=== PATIENT | male | born 1940 | race Caucasian/White ===

== ENCOUNTER 2016-11-21 10:17 | Inpatient (IN) | payer OTHER, MEDICARE ==
[~2016-11-21] VITALS: Ht 182.9 cm; Wt 84.6 kg
[~2016-11-21 10:17] MED LIST: ASPI81 CHEW; B-12500T3 PO; CHOL1CAP6 PO; FOLI1TAB PO; GABA400 PO; GLUCTAB PO; GLYB1TAB51; LATA.005%O EACH EYE; LOVA1TAB47 PO; MAXZ25 PO; METO25 PO; PLAV75TA PO; PROT40TA PO
[2016-11-21 10:27] VITALS: BP 155/83; PULSE 74; RESP 16; TEMP 97.7; O2SAT 98
--- NOTE | 2016-11-21 10:48 | PD ---
HPI Chief Complaint: Edema Time Seen by Provider: 10:35 Travel History International Travel<30 days: No Contact w/Intl Traveler<30days: No Traveled to known affect area: No History of Present Illness HPI This is a 76-year-old male with a history of diabetes who presents to the emergency department with 4 days of left foot pain, constant, moderate severity associated with redness and yellow discoloration. He is having difficulty moving his great toe on the left side. He denies any fevers or chills. He's never seen a medicare contact specialist before. Dr. Alvarez is his primary care doctor and he also follows with the [facility]. He takes oral medications for his diabetes. PFSH Past Medical History Hx Anticoagulant Therapy: Yes (asa 81mg) Cancer: Yes (PROSTATE) Cardiovascular Problems: Yes High Cholesterol: Yes Congestive Heart Failure: No Diabetes: Yes Diminished Hearing: No Gastrointestinal Disorders: Yes GERD: Yes Genitourinary: Yes Hypertension: Yes Implanted Vascular Access Dvce: Yes Musculoskeletal: Yes Neurologic: Yes (NEUROPATHY) Psychiatric: No Respiratory: Yes (copd) Past Surgical History Abdominal Surgery: Yes (hernia repair, ) Body Medical Devices: FUSED NECK, METAL PLATES IN BACK/NECK Cholecystectomy: Yes Joint Replacement: Yes (rotator cuff repair) Other Surgery: Yes Social History Alcohol Use: Yes (6 pk daily BEER) Tobacco Use: No Substance Use: No Allergies-Medications (Allergen,Severity, Reaction): Coded Allergies: No Known Allergies (Verified , 11/21/16) Reported Meds & Prescriptions Reported Meds & Active Scripts Active Reported Triamterene-Hydrochlorothiazide 37.5-25 Mg Cap 1 Cap PO DAILY Pantoprazole (Pantoprazole Sodium) 40 Mg Tab 40 Mg PO DAILY Metformin (Metformin HCl) 1,000 Mg Tab 1,000 Mg PO BIDPC With meals Lovastatin 40 Mg Tab 40 Mg PO DAILY Xalatan Opth Drops (Latanoprost) 0.005% Drops 1 Drop EACH EYE HS Glyburide 5 Mg Tab 5 Mg PO DAILY Take with meals at the same time each day Gabapentin 600 Mg Tab 600 Mg PO BID Folate (Folic Acid) 1 Mg Tab 1 Mg PO DAILY Plavix (Clopidogrel Bisulfate) 75 Mg Tab 75 Mg PO DAILY Aspirin 81 Mg Tabdr 81 Mg PO DAILY Review of Systems Except as stated in HPI: all other systems reviewed are Neg Physical Exam Narrative GENERAL:Well appearing, no acute distress SKIN: 3 cm yellow area along the plantar aspect of the left foot immediately distal to the great toe associated with surrounding erythema that extends from the great toe down to the foot with some associated swelling in the ankle. HEAD: Atraumatic. Normocephalic. EYES: Pupils equal and round. No injection or drainage. ENT: Moist mucous membranes NECK: Trachea midline. CARDIOVASCULAR: Regular rate and rhythm. No murmur appreciated. Delayed capillary refill in the left foot. RESPIRATORY: Clear to auscultation. Breath sounds equal bilaterally. GASTROINTESTINAL: Abdomen soft, non-tender, nondistended. MUSCULOSKELETAL: No tenderness to flexion at the left great toe but patient is unable to flex or extend independently NEUROLOGICAL: Awake and alert. No obvious cranial nerve deficits. Moving all extremities. PSYCHIATRIC: Appropriate mood and affect; insight and judgment normal. Data Data Last Documented VS Vital Signs Date Time Temp Pulse Resp B/P Pulse Ox O2 Delivery O2 Flow Rate FiO2 11/21/16 10:27 97.7 74 16 155/83 98 Orders Complete Blood Count With Diff (11/21/16 10:44) Comprehensive Metabolic Panel (11/21/16 10:44) Westergren Sedimentation Rate (11/21/16 10:44) C-Reactive Protein (Crp) (11/21/16 10:44) ^ Insert Iv (11/21/16 10:44) Foot, Complete ([id number]) (11/21/16 ) Piperacil-Tazo 3.375 Gm Premix (Zosyn 3. (11/21/16 12:15) Admit Order (Ed Use Only) (11/21/16 13:01) Labs Laboratory Tests Test 11/21/16 11:00 White Blood Count 9.5 TH/MM3 Red Blood Count 4.33 MIL/MM3 Hemoglobin 14.3 GM/DL Hematocrit 42.2 % Mean Corpuscular Volume 97.4 FL Mean Corpuscular Hemoglobin 33.0 PG Mean Corpuscular Hemoglobin 33.8 % Concent Red Cell Distribution Width 11.4 % Platelet Count 235 TH/MM3 Mean Platelet Volume 7.2 FL Neutrophils (%) (Auto) 79.8 % Lymphocytes (%) (Auto) 9.5 % Monocytes (%) (Auto) 9.4 % Eosinophils (%) (Auto) 0.9 % Basophils (%) (Auto) 0.4 % Neutrophils # (Auto) 7.6 TH/MM3 Lymphocytes # (Auto) 0.9 TH/MM3 Monocytes # (Auto) 0.9 TH/MM3 Eosinophils # (Auto) 0.1 TH/MM3 Basophils # (Auto) 0.0 TH/MM3 CBC Comment DIFF FINAL Differential Comment Erythrocyte Sedimentation Rate 45 mm/hr Sodium Level 137 MEQ/L Potassium Level 4.0 MEQ/L Chloride Level 102 MEQ/L Carbon Dioxide Level 22.3 MEQ/L Anion Gap 13 MEQ/L Blood Urea Nitrogen 13 MG/DL Creatinine 1.35 MG/DL Estimat Glomerular Filtration 51 ML/MIN Rate Random Glucose 156 MG/DL Calcium Level 8.9 MG/DL Total Bilirubin 0.9 MG/DL Aspartate Amino Transf 18 U/L (AST/SGOT) Alanine Aminotransferase 23 U/L (ALT/SGPT) Alkaline Phosphatase 86 U/L C-Reactive Protein 3.74 MG/DL Total Protein 7.6 GM/DL Albumin 3.1 GM/DL MDM Medical Decision Making Medical Screen Exam Complete: Yes Emergency Medical Condition: Yes Interpretation(s) No leukocytosis Electrolytes are reassuring Inflammatory markers are elevated Differential Diagnosis Cellulitis, septic arthritis, gout Narrative Course This is a 76-year-old male who presents to the emergency department with inflammation involving his left great toe extending up his left leg. He has a history of diabetes. I did take an 18-gauge needle and tried to aspirate some fluid from the foot and an area of fluctuance but I didn't obtain anything. It' s possible that this is gout however the patient's inflammatory markers are elevated. In the setting of history of diabetes I think it's reasonable to place the patient on antibiotics and have him see podiatry for concern for a deeper infection, possibly involving the interphalangeal joint. Procedures Procedure Narrative Left foot was cleansed with Betadine, an 18-gauge needle was inserted in an area of fluctuance along the medial plantar aspect of the left foot but clear bloody fluid was aspirated and no pus was appreciated. Patient tolerated the procedure well. Physician Communication Physician Communication Discussed with Dr. Alvarez Diagnosis Primary Impression: Diabetic foot infection Admitting Information Admitting Physician Requests: Observation Lia Barreto MD Nov 21, 2016 10:48
[2016-11-21] MEDS ORDERED: ASPI1TAB69 PO (10:53)
[2016-11-21] MEDS ORDERED: LOVA40TA PO (10:54)
[2016-11-21] MEDS ORDERED: TRIA37.53 PO (10:54)
[2016-11-21] MEDS ORDERED: GABA600T PO (10:54)
[2016-11-21] MEDS ORDERED: PANT40TA3 PO (10:54)
[2016-11-21] MEDS ORDERED: GLYB5TAB3 PO (10:54)
[2016-11-21] MEDS ORDERED: FOLI1TAB4 PO (10:54)
[2016-11-21] MEDS ORDERED: PLAV75TA29 PO (10:54)
[2016-11-21] MEDS ORDERED: LATA.005%O EACH EYE (10:54)
[2016-11-21] MEDS ORDERED: METF1000 PO (10:54)
[2016-11-21 11:07] LABS: AUTOMATED NEUTROPHIL # 7.6 TH/MM3 (1.8-7.7); BASOPHIL % 0.4 % (0.0-2.0); EOSINOPHIL # 0.1 TH/MM3 (0-0.4); EOSINOPHIL % 0.9 % (0.0-4.0); HEMATOCRIT 42.2 % (39.0-51.0); HEMO FLAGS DIFF FINAL; LYMPH % 9.5 % (9.0-44.0); LYMPHOCYTE # 0.9 TH/MM3 (1.0-4.8); MEAN CELL VOLUME 97.4 FL (80.0-100.0); MEAN CORPUSCULAR HGB CONC 33.8 % (32.0-36.0); MONO % 9.4 % (0.0-8.0); NEUT % 79.8 % (16.0-70.0); PLATELET COUNT 235 TH/MM3 (150-450); RED BLOOD COUNT 4.33 MIL/MM3 (4.50-5.90); RED CELL DISTRIBUTION WIDTH 11.4 % (11.6-17.2); WHITE BLOOD COUNT 9.5 TH/MM3 (4.0-11.0)
[2016-11-21 11:16] LABS: CHLORIDE 102 MEQ/L (98-107); SODIUM (NA) 137 MEQ/L (136-145)
[2016-11-21] MEDS ORDERED: PIPERACIL-TAZO 3.375 GM PREMIX 50 ML IV ONE (12:15)
[2016-11-21 12:29] LABS: BLOOD UREA NITROGEN 13 MG/DL (7-18)
[2016-11-21 12:49] LABS: ALKALINE PHOSPHATASE 86 U/L (45-117); TOTAL BILIRUBIN ADULT 0.9 MG/DL (0.2-1.0)
[2016-11-21 12:50] LABS: GLOMERULAR FILTRATION RATE 51 ML/MIN (>89)
[2016-11-21 12:51] LABS: ALT (GPT) 23 U/L (12-78); ANION GAP 13 MEQ/L (5-15); AST (GOT) 18 U/L (15-37); BICARBONATE 22.3 MEQ/L (21.0-32.0)
--- NOTE | 2016-11-21 13:01 | RADHPO ---
EXAM DATE/TIME: 11/21/2016 12:30 [place] COMPARISON: No previous studies available for comparison. INDICATIONS : Patient complains of swelling of left foot, first digit. MEDICAL HISTORY : Diabetes mellitus type II. SURGICAL HISTORY : None. ENCOUNTER: Initial ACUITY: 1 week PAIN SCORE: 0/10 LOCATION: Left foot, first digit FINDINGS: There is marked soft tissue swelling about the first tarsal metatarsal joint. I see no fracture or s ignificant erosion. CONCLUSION: Marked soft tissue swelling. I do not see evidence for osteomyelitis or gouty erosions. Nelson Groves MD FACR on November 21, 2016 at 12:58 Board Certified Radiologist. This report was verified electronically.
[2016-11-21] MEDS ORDERED: NALOXONE HCL 0.4 MG/ML AMP IV PRN ×2 (13:30)
[2016-11-21] MEDS ORDERED: ACETAMINOPHEN 325 MG TAB PO PRN (13:30)
[2016-11-21] MEDS ORDERED: DEXTROSE 50% IN WATER 50 ML VIAL(D50) IV PUSH PRN (13:30)
[2016-11-21] MEDS ORDERED: GLUCAGON 1 MG/ML VIAL OTHER PRN (13:30)
[2016-11-21] MEDS ORDERED: ONDANSETRON HCL 4 MG/2 ML VIAL IVP PRN (13:30)
[2016-11-21] MEDS ORDERED: ALUMINUM/MAGNESIUM/SIMETH 30 ML CUP PO PRN (13:30)
[2016-11-21 14:06] VITALS: BP 138/78; PULSE 76; RESP 18; O2SAT 98
--- NOTE | 2016-11-21 14:15 | HHI.HP ---
[facility] Service [place] [place] [facility] Primary Care Physician Jefferson Alvarez MD Admission Diagnosis diabetic foot infection Diagnoses: (1) Cellulitis of foot, left Diagnosis: Principal (2) Renal failure Diagnosis: Principal (3) Type 2 diabetes mellitus Diagnosis: Principal Chief Complaint: redness, swelling L foot Travel History International Travel<30 Days: No Contact w/Intl Traveler <30 Da: No Traveled to Known Affected Are: No History of Present Illness 76-year-old male with history of NIDDM, hyperlipidemia, hypertension, GERD, neuropathy, and prostate cancer presents with complaint of redness and swelling to his left foot, starting over the top of foot, which began 1.5-2 weeks ago but became worse over the last few days. He denies any pain to the foot. Denies any injuries to his foot or ankle recently. Denies any fevers or chills. Denies any chest pain, shortness of breath, abdominal pain, nausea, vomiting or diarrhea. He denies any history of gout but does drink a sixpack of beer daily. He also admits to some non-pruritic red spots on his left thigh which appeared since getting here, but denies any throat swelling or wheezing. Denies allergy to penicillin. States he saw a special duty nurse Dr. Hdez one year ago. Review of Systems Constitutional: DENIES: Fever, Chills Eyes: DENIES: Blurred vision Ears, nose, mouth, throat: DENIES: Throat pain Respiratory: DENIES: Cough, Wheezing, Shortness of breath Cardiovascular: DENIES: Chest pain Gastrointestinal: DENIES: Abdominal pain, Diarrhea, Nausea, Vomiting Genitourinary: DENIES: Dysuria Musculoskeletal: COMPLAINS OF: Joint Swelling, DENIES: Joint pain Integumentary: COMPLAINS OF: Rash Neurologic: DENIES: Headache Past Family Social History Past Medical History History of prostate cancer; not active Hyperlipidemia Hypertension Diabetes Neuropathy COPD GERD Hospitalized for pancreatitis in 2013 Past Surgical History Cardiac cath 2007 Cholecystectomy Abdominal hernia repair Neck fusion, hardware at C5-C7 Left rotator cuff repair Reported Medications Reported medications: Triamterene-Hydrochlorothiazide 37.5-25 Mg Cap 1 Cap PO DAILY Pantoprazole (Pantoprazole Sodium) 40 Mg Tab 40 Mg PO DAILY Metformin (Metformin HCl) 1,000 Mg Tab 1,000 Mg PO BIDPC With meals Lovastatin 40 Mg Tab 40 Mg PO DAILY Xalatan Opth Drops (Latanoprost) 0.005% Drops 1 Drop EACH EYE HS Glyburide 5 Mg Tab 5 Mg PO DAILY Take with meals at the same time each day Gabapentin 600 Mg Tab 600 Mg PO BID Folate (Folic Acid) 1 Mg Tab 1 Mg PO DAILY Plavix (Clopidogrel Bisulfate) 75 Mg Tab 75 Mg PO DAILY Aspirin 81 Mg Tab 81 Mg PO DAILY Allergies: Coded Allergies: No Known Allergies (Verified , 11/21/16) Family History Mother: Healthy Father: Killed when patient was 7 years old Brother: Rheumatic fever, living Sister: Healthy, living Social History Patient drinks a 6 pack of beer daily. States he has been drinking this much since he was a kid. Patient quit smoking cigarettes in 1991. Prior to this he smoked 1 pack per day. Started smoking as a teenager. Denies any history of illicit drug use including IVDA. Physical Exam Vital Signs Vital Signs Date Time Temp Pulse Resp B/P Pulse Ox O2 Delivery O2 Flow Rate FiO2 11/21/16 14:06 76 18 138/78 98 Room Air 11/21/16 10:27 97.7 74 16 155/83 98 Physical Exam GENERAL: This is a pleasant elderly well-nourished, well-developed patient in no apparent distress. SKIN: There are a few very small light red macules to the medial left thigh. There is no rash evident elsewhere. There is some discoloration and nail loss and erythema around the nail of the right second toe. There is a small wound to the plantar aspect of the right fifth metatarsal. Left great toenail is thick and discolored yellow and black and deformed. Left ankle and foot is warm and erythematous extending to all left toes. There is white discoloration over the medial plantar aspect of left foot in the area of the distal 1st metatarsal. Surgical scar over the left shoulder and posterior neck. HEAD: Atraumatic. Normocephalic. EYES: No scleral icterus. No injection or drainage. ENT: MMM. CARDIOVASCULAR: Regular rate and rhythm without murmurs, gallops, or rubs. RESPIRATORY: Clear to auscultation. Breath sounds equal bilaterally. No wheezes , rales, or rhonchi. GASTROINTESTINAL: Abdomen soft, non-tender, nondistended. MUSCULOSKELETAL: Intermittently palpable R TP pulse. 1+ L DP pulse. 2+ L TP pulse. Swelling of the left ankle, foot, and toes. Patient is able to actively flex and extend the left ankle as well as flex the left great toe without pain. There is limitation due to swelling. Passive motion is also adequate at the left first metatarsophalangeal joint although limited due to swelling. NEUROLOGICAL: Awake and alert. Motor grossly within normal limits. Normal speech. PSYCHIATRIC: Normal mood and affect. Laboratory Laboratory Tests Test 11/21/16 11:00 White Blood Count 9.5 Red Blood Count 4.33 Hemoglobin 14.3 Hematocrit 42.2 Mean Corpuscular Volume 97.4 Mean Corpuscular Hemoglobin 33.0 Mean Corpuscular Hemoglobin 33.8 Concent Red Cell Distribution Width 11.4 Platelet Count 235 Mean Platelet Volume 7.2 Neutrophils (%) (Auto) 79.8 Lymphocytes (%) (Auto) 9.5 Monocytes (%) (Auto) 9.4 Eosinophils (%) (Auto) 0.9 Basophils (%) (Auto) 0.4 Neutrophils # (Auto) 7.6 Lymphocytes # (Auto) 0.9 Monocytes # (Auto) 0.9 Eosinophils # (Auto) 0.1 Basophils # (Auto) 0.0 CBC Comment DIFF FINAL Differential Comment Erythrocyte Sedimentation Rate 45 Sodium Level 137 Potassium Level 4.0 Chloride Level 102 Carbon Dioxide Level 22.3 Anion Gap 13 Blood Urea Nitrogen 13 Creatinine 1.35 Estimat Glomerular Filtration 51 Rate Random Glucose 156 Calcium Level 8.9 Total Bilirubin 0.9 Aspartate Amino Transf 18 (AST/SGOT) Alanine Aminotransferase 23 (ALT/SGPT) Alkaline Phosphatase 86 C-Reactive Protein 3.74 Total Protein 7.6 Albumin 3.1 Result Diagram: 11/21/16 1100 11/21/16 1100 Imaging Left foot x-ray personally interpreted with swelling but no evidence of fracture or bony erosion. Assessment and Plan Assessment and Plan 76-year-old male with: Cellulitis left foot: Patient is a diabetic. Significant erythema and swelling to left foot and ankle. No pain present although patient has neuropathy. Joint motion is limited due to swelling but is adequate considering, making me less suspicious for septic joints. X-ray shows no evidence of osteomyelitis. Gout is also a possibility as patient has several risk factors for this. -She received 1 dose of Zosyn in the ED. He admits to some red spots to the medial left thigh since being in ED but I am not convinced this is due to the antibiotic as it is quite minimal. Will continue Zosyn and monitor for allergic reaction. -Elevate L leg and foot -Podiatry consultation to evaluate for any deeper infection Diabetes: BGL 156. -Hold oral meds due to possible MIRTA -Bedside Accu-checks and low dose SSI -Diabetic heart healthy diet Renal failure: Cr mildly elevated at 1.35 today, could be associated with infection. No evidence of sepsis. GFR 51. Likely has CKD. Last lab for comparison is on 04/28/15, Cr 1.10 with GFR 65. -Avoid nephrotoxins -Repeat am BMP Chronic medical conditions including neuropathy, hyperlipidemia, hypertension, GERD: -Continue home medications unless otherwise indicated on med rec. Daily alcohol use: 6 pack per day. Patient denies needing an eye fell cutter. Denies history of withdrawal symptoms. MCV and LFTs normal. -Nurse to perform CIWA assessment -Withdrawal precautions -Patient on folic acid at home; start po thiamine DVT prevention: Avoid SCDs due to lower extremity issues. Avoid pharmacologic prophylaxis as patient at increased risk of bleeding due to age and concomitant Plavix use. Cyndy Louie Nov 21, 2016 14:15 Cyndy Louie Nov 21, 2016 14:15
[2016-11-21 16:00] VITALS: BP 158/94; PULSE 65; RESP 18; TEMP 97.9; O2SAT 99
[2016-11-21] MEDS: INSULIN ASPART SUPPLEMENTAL SCALE SQ SCH ×2 (16:00→20:44)
[2016-11-21] MEDS: ACETAMINOPHEN/HYDROcodone 325 MG/10 MG TAB PO PRN (16:53)
[2016-11-21] MEDS: PIPERACIL-TAZO 3.375 GM PREMIX 50 ML IV SCH (17:59)
[2016-11-21 20:00] VITALS: BP 145/94; PULSE 58; RESP 16; TEMP 97.7; O2SAT 100
[2016-11-21] MEDS: SODIUM CHLORIDE 0.9% FLUSH 5 ML FLUSH FLUSH SCH (20:41)
[2016-11-21] MEDS: GABAPENTIN 300 MG CAP PO SCH (20:41)
[2016-11-21] MEDS: LATANOPROST 0.005% OPHT SOLN 2.5 ML BTL EACH EYE SCH (20:57)
[2016-11-22] VITALS: BP 140/77; PULSE 52; RESP 18; TEMP 96.4; O2SAT 100
[2016-11-22] MEDS: PIPERACIL-TAZO 3.375 GM PREMIX 50 ML IV SCH ×4 (00:07→18:00)
[2016-11-22] MEDS: ACETAMINOPHEN/HYDROcodone 325 MG/10 MG TAB PO PRN (04:10)
[2016-11-22 06:02] LABS: AUTOMATED NEUTROPHIL # 7.1 TH/MM3 (1.8-7.7); BASOPHIL % 0.3 % (0.0-2.0); EOSINOPHIL # 0.2 TH/MM3 (0-0.4); EOSINOPHIL % 2.1 % (0.0-4.0); HEMATOCRIT 37.7 % (39.0-51.0); HEMO FLAGS DIFF FINAL; LYMPH % 9.8 % (9.0-44.0); LYMPHOCYTE # 0.9 TH/MM3 (1.0-4.8); MEAN CELL VOLUME 98.1 FL (80.0-100.0); MEAN CORPUSCULAR HEMOGLOBIN 33.5 PG (27.0-34.0); MEAN CORPUSCULAR HGB CONC 34.2 % (32.0-36.0); MONO % 13.5 % (0.0-8.0); NEUT % 74.3 % (16.0-70.0); PLATELET COUNT 192 TH/MM3 (150-450); RED BLOOD COUNT 3.84 MIL/MM3 (4.50-5.90); RED CELL DISTRIBUTION WIDTH 11.5 % (11.6-17.2); WHITE BLOOD COUNT 9.5 TH/MM3 (4.0-11.0)
[2016-11-22 06:04] LABS: POTASSIUM 4.2 MEQ/L (3.5-5.1)
[2016-11-22 06:10] LABS: BICARBONATE 27.7 MEQ/L (21.0-32.0)
[2016-11-22] MEDS: INSULIN ASPART SUPPLEMENTAL SCALE SQ SCH ×4 (07:00→21:25)
[2016-11-22 08:00] VITALS: BP 121/75; PULSE 63; RESP 17; TEMP 98.2; O2SAT 100
[2016-11-22] MEDS: ASPIRIN EC 81 MG TABEC PO SCH (08:34)
[2016-11-22] MEDS: GABAPENTIN 300 MG CAP PO SCH ×2 (08:34→21:25)
[2016-11-22] MEDS: THIAMINE HCL 100 MG TAB PO SCH (08:34)
[2016-11-22] MEDS: SODIUM CHLORIDE 0.9% FLUSH 5 ML FLUSH FLUSH SCH ×2 (08:34→21:25)
[2016-11-22] MEDS: CLOPIDOGREL 75 MG TAB PO SCH (08:34)
[2016-11-22] MEDS: FOLIC ACID 1 MG TAB PO SCH (08:34)
[2016-11-22] MEDS: PANTOPRAZOLE SOD 40 MG DELAYED RELEASE TAB PO SCH (08:34)
[2016-11-22] MEDS ORDERED: PRAVASTATIN SOD 40 MG TAB PO SCH (09:00)
--- NOTE | 2016-11-22 10:22 | HHI.PR ---
Subjective Remarks Patient seen and evaluated today in follow-up for left foot infection. Overall improved erythema and edema per patient. He has minimal pain due to neuropathy. Awaiting podiatry evaluation Objective Vitals Vital Signs Date Time Temp Pulse Resp B/P Pulse Ox O2 Delivery O2 Flow Rate FiO2 11/22/16 08:00 98.2 63 17 121/75 100 11/22/16 00:00 96.4 52 18 140/77 100 11/21/16 20:00 97.7 58 16 145/94 100 11/21/16 17:53 20 11/21/16 16:00 97.9 65 18 158/94 99 11/21/16 14:06 76 18 138/78 98 Room Air 11/21/16 10:27 97.7 74 16 155/83 98 I/O 11/21/16 11/21/16 11/21/16 11/22/16 11/22/16 11/22/16 07:00 15:00 23:00 07:00 15:00 23:00 Intake Total 680 ml 240 ml 310 ml Balance 680 ml 240 ml 310 ml Intake Oral 680 ml 240 ml 310 ml # Voids 2 1 # Bowel Movements 0 0 Result Diagram: 11/22/16 0525 11/22/16 0525 Imaging Last Impressions Foot X-Ray 11/21/16 0000 Signed Impressions: Service Date/Time: Monday, November 21, 2016 12:30 - CONCLUSION: Marked soft tissue swelling. I do not see evidence for osteomyelitis or gouty erosions. Nelson Groves MD FACR Objective Remarks GENERAL: This is a well-nourished, well-developed patient, in no apparent distress. CARDIOVASCULAR: Regular rate and rhythm without murmurs, gallops, or rubs. RESPIRATORY: Clear to auscultation. Breath sounds equal bilaterally. No wheezes , rales, or rhonchi. GASTROINTESTINAL: Abdomen soft, non-tender, nondistended. Normal active bowel sounds MUSCULOSKELETAL: Left foot erythema and edema improved. Other 3 Extremities without clubbing, cyanosis, or edema. NEURO: Alert & Oriented x4 to person, place, time, situation. Moves all ext x4 A/P Problem List: (1) Cellulitis of foot, left ICD Code: L03.116 Status: Acute Plan: Continue Zosyn, podiatry follow-up pending (2) Type 2 diabetes mellitus ICD Code: E11.9 Status: Acute Plan: Currently controlled on home medications Patient does have diabetic neuropathy (3) MIRTA (acute kidney injury) ICD Code: N17.9 Status: Acute Plan: Appears to have been prerenal, improved with hydration. We'll follow trend and avoid nephrotoxic injuries Adina Alvarez MD Nov 22, 2016 10:22
[2016-11-22 12:00] VITALS: BP 125/80; PULSE 70; RESP 17; TEMP 98; O2SAT 99
[2016-11-22 16:00] VITALS: BP 150/85; PULSE 71; RESP 17; TEMP 98; O2SAT 98
[2016-11-22 20:00] VITALS: BP 139/74; PULSE 64; RESP 20; TEMP 98.8; O2SAT 99
[2016-11-22] MEDS ORDERED: MUPIROCIN 2% OINT 22 GM TUBE TOPICAL ONE (20:30)
--- NOTE | 2016-11-22 20:51 | MB ---
cc: KAELYN HANDY DATE OF CONSULTATION 11/22/2016 CHIEF COMPLAINT Left foot erythema and swelling. HISTORY OF PRESENT ILLNESS Mr. Reeder is a 76-year-old neuropathic diabetic male patient who states that he has had swelling the left foot for about 2 weeks now. He states that over the last year or two he has had this a few times but this is the worst. He denies any pain to the foot and does not routinely see a doctor. He came to the ER because he was concerned about the amount of swelling but otherwise denies any symptoms. PAST MEDICAL HISTORY Includes: 1. Non-insulin dependent diabetes mellitus. 2. Hyperlipidemia. 3. Hypertension. 4. Gastroesophageal reflux disease. 5. Neuropathy. 6. Prostate cancer. PAST SURGICAL HISTORY 1. Cardiac cath. 2. Cholecystectomy. 3. Abdominal hernia repair. 4. Neck fusion C5-C7. 5. Left rotator cuff repair. MEDICATIONS Please see list. ALLERGIES NO KNOWN DRUG ALLERGIES. FAMILY HISTORY Noncontributory. SOCIAL HISTORY The patient states he drinks a six-pack of beer daily and has done this since he was a young teen. Quit smoking cigarettes in 1991 but did smoke one-pack per day. Denies any history of illicit drug use. Temperature is 98.0 which is also T-max. Pulse 71, blood pressure 150/85, pulse ox 98% O2 on room air. LABORATORY DATA White count today 9.5, hemoglobin 12.9, hematocrit 37.7, platelets 192. Sodium 141, potassium 4.2, chloride 104, carbon dioxide 27.7, BUN 14. No cultures taken. Blood cultures are pending. IMAGING X-rays are negative for any signs of erosion at the bone or gas in the soft tissue. PHYSICAL EXAMINATION The patient has nonpalpable DP or PT pulses but the foot does feel perfused. Cap fill time less than 3 seconds. Gross sensation severely diminished. Right foot is unremarkable. Left foot is swollen to the level of the ankle with the erythema extending just beyond the mid foot both dorsally and plantarly. Sub met 1 there was a fluctuant area of skin. After incision and drainage there is a 0.5 x 0.5 x 0.5 granular ulceration. There was some serous drainage and a very small amount of purulent noted at the time I&D. There does not appear to be any deep probing element to the wound, however, tissue remained soft and fluctuant. PROCEDURE The patient neuropathic and anesthesia was not needed. The foot was cleaned with alcohol and Betadine. Attention was directed to the plantar aspect of the left first metatarsal where a heavy callus was noted to be covering fluctuant tissue. Callus was debrided and there was a small amount of purulence drained and then some serous fluid was drained. The callus was removed en toto to reveal partial thickness wound of approximately 2 cm x 2 cm and a full-thickness wound that was 0.5 cm x 0.5 cm x 0.5 cm with a granular wound bed. The area was cleansed with copious amounts of sterile saline and dressed with xeroform, gauze, Dejan and a light Gerald wrap. The foot was left in elevated position and MRI will be ordered. ASSESSMENT/PLAN 1. Left foot superficial abscess with cellulitis. - Status post bedside I&D. - Blood cultures pending. - MRI pending. - The patient would benefit from a vascular evaluation. However if he does not require surgical intervention then this chronic condition can be assessed as an outpatient. - Continue IV antibiotics. - Weight bear as tolerated in a surgical shoe. Thank you for this consultation. Kaelyn GOMEZ/KK /8:03 PM /8:32 PM MTDD
[2016-11-22] MEDS: ACETAMINOPHEN/HYDROcodone 325 MG/5 MG TAB PO PRN (21:24)
[2016-11-22] MEDS: PRAVASTATIN SOD 40 MG TAB PO SCH (21:25)
[2016-11-22] MEDS: LATANOPROST 0.005% OPHT SOLN 2.5 ML BTL EACH EYE SCH (21:27)
[2016-11-23] VITALS: BP 99/57; PULSE 68; RESP 20; TEMP 97.8; O2SAT 98
[2016-11-23] MEDS: PIPERACIL-TAZO 3.375 GM PREMIX 50 ML IV SCH ×5 (00:14→23:59)
[2016-11-23] MEDS: SODIUM CHLORIDE 0.9% FLUSH 5 ML FLUSH FLUSH PRN ×3 (00:14→23:59)
[2016-11-23 04:00] VITALS: BP 142/80; PULSE 56; RESP 20; TEMP 98.1; O2SAT 100
[2016-11-23] MEDS: ACETAMINOPHEN/HYDROcodone 325 MG/5 MG TAB PO PRN (05:03)
[2016-11-23] MEDS: INSULIN ASPART SUPPLEMENTAL SCALE SQ SCH ×4 (06:00→22:38)
[2016-11-23 08:00] VITALS: BP 128/79; PULSE 60; RESP 20; TEMP 97.2; O2SAT 100
[2016-11-23] MEDS: PANTOPRAZOLE SOD 40 MG DELAYED RELEASE TAB PO SCH (10:02)
[2016-11-23] MEDS: THIAMINE HCL 100 MG TAB PO SCH (10:02)
[2016-11-23] MEDS: FOLIC ACID 1 MG TAB PO SCH (10:02)
[2016-11-23] MEDS: GABAPENTIN 300 MG CAP PO SCH ×2 (10:03→22:39)
[2016-11-23] MEDS: ASPIRIN EC 81 MG TABEC PO SCH (10:03)
[2016-11-23] MEDS: CLOPIDOGREL 75 MG TAB PO SCH (10:03)
[2016-11-23] MEDS: SODIUM CHLORIDE 0.9% FLUSH 5 ML FLUSH FLUSH SCH ×2 (10:04→22:38)
[2016-11-23] MEDS: MUPIROCIN 2% OINT 22 GM TUBE TOPICAL SCH (10:08)
[2016-11-23 12:00] VITALS: BP 131/68; PULSE 60; RESP 20; TEMP 98; O2SAT 99
--- NOTE | 2016-11-23 12:38 | HHI.DCPOC ---
Discharge Care Plan Diagnosis: (1) MIRTA (acute kidney injury) (2) Cellulitis of foot, left (3) Type 2 diabetes mellitus Additional Problems TAKE METFORMIN IN 48 HOURS Goals to Promote Your Health * To prevent worsening of your condition and complications * To maintain your health at the optimal level Directions to Meet Your Goals Take your medications as prescribed Follow your dietary instruction Follow activity as directed Keep your appointments as scheduled Take your immunizations and boosters as scheduled If your symptoms worsen call your PCP, if no PCP go to Urgent Care Center or Emergency Room Smoking is Dangerous to Your Health. Avoid second hand smoke Call the 24-hour hour crisis hotline for domestic abuse at Adina Alvarez MD Nov 23, 2016 12:38
--- NOTE | 2016-11-23 12:43 | HHI.DS ---
vasu posadas Discharge Summary Admission Date Nov 21, 2016 at 13:02 Discharge Date: Nov 23, 2016 Admitting Diagnosis diabetic foot infection (1) Cellulitis of foot, left ICD Code: L03.116 (2) Type 2 diabetes mellitus ICD Code: E11.9 (3) MIRTA (acute kidney injury) ICD Code: N17.9 Procedures Bedside I&D Brief History - From Admission 76-year-old male with history of NIDDM, hyperlipidemia, hypertension, GERD, neuropathy, and prostate cancer presents with complaint of redness and swelling to his left foot, starting over the top of foot, which began 1.5-2 weeks ago but became worse over the last few days. He denies any pain to the foot. Denies any injuries to his foot or ankle recently. Denies any fevers or chills. Denies any chest pain, shortness of breath, abdominal pain, nausea, vomiting or diarrhea. He denies any history of gout but does drink a sixpack of beer daily. He also admits to some non-pruritic red spots on his left thigh which appeared since getting here, but denies any throat swelling or wheezing. Denies allergy to penicillin. States he saw a associate professor of violin Dr. Hdez one year ago. CBC/BMP: 11/22/16 0525 11/22/16 0525 Significant Findings Laboratory Tests Test 11/21/16 11/22/16 11:00 05:25 Red Blood Count 4.33 MIL/MM3 3.84 MIL/MM3 (4.50-5.90) (4.50-5.90) Red Cell Distribution Width 11.4 % 11.5 % (11.6-17.2) (11.6-17.2) Neutrophils (%) (Auto) 79.8 % 74.3 % (16.0-70.0) (16.0-70.0) Monocytes (%) (Auto) 9.4 % (0.0-8.0) 13.5 % (0.0-8.0) Lymphocytes # (Auto) 0.9 TH/MM3 0.9 TH/MM3 (1.0-4.8) (1.0-4.8) Erythrocyte Sedimentation Rate 45 mm/hr (0-20) Creatinine 1.35 MG/DL (0.60-1.30) Estimat Glomerular Filtration 51 ML/MIN (>89) 54 ML/MIN (>89) Rate Random Glucose 156 MG/DL (74-106) C-Reactive Protein 3.74 MG/DL (0.00-0.30) Albumin 3.1 GM/DL (3.4-5.0) Hemoglobin 12.9 GM/DL (13.0-17.0) Hematocrit 37.7 % (39.0-51.0) Monocytes # (Auto) 1.3 TH/MM3 (0-0.9) Calcium Level 8.3 MG/DL (8.5-10.1) Imaging Last Impressions Foot X-Ray 11/21/16 0000 Signed Impressions: Service Date/Time: Monday, November 21, 2016 12:30 - CONCLUSION: Marked soft tissue swelling. I do not see evidence for osteomyelitis or gouty erosions. Nelson Groves MD FACR PE at Discharge GENERAL: This is a well-nourished, well-developed patient, in no apparent distress. CARDIOVASCULAR: Regular rate and rhythm without murmurs, gallops, or rubs. RESPIRATORY: Clear to auscultation. Breath sounds equal bilaterally. No wheezes , rales, or rhonchi. GASTROINTESTINAL: Abdomen soft, non-tender, nondistended. Normal active bowel sounds MUSCULOSKELETAL: Left foot erythema and edema improved. Other 3 Extremities without clubbing, cyanosis, or edema. NEURO: Alert & Oriented x4 to person, place, time, situation. Moves all ext x4 Pt update on day of discharge Patient seen today in follow-up for cellulitis of left foot. Status post I&D by podiatry. Acute kidney injury is improved. Patient still has minimal pain. Tolerated IV antibiotics well and edema and erythema is improved Hospital Course This patient is a 76-year-old gentleman who was seen and treated for acute kidney injury, dehydration and cellulitis of the left foot the history of diabetes. He did require IV antibiotics and was seen by podiatry. He did have an I&D at the bedside and an MRI of the leg. Patient also had arterial brachial indices done. Patient did well and was discharged home to follow-up with his primary doctor's at [facility]. Pt Condition on Discharge: Good Discharge Disposition: Discharge Home Discharge Time: > 30 minutes Discharge Instructions DIET: Follow Instructions for: Diabetic Diet Activities you can perform: Regular-No Restrictions Follow up Referrals: PCP Follow-up - 1 Week with [facility] - 2 Weeks with Kaelyn Saez DPM New Medications: Amoxicillin-Clavulanate (Augmentin) 500-125 mg Tab 500 MG PO BID Infection #14 Ref 0 TAB Clindamycin (Clindamycin) 300 Mg Cap 600 MG PO Q8H Infection #21 Ref 0 CAP Continued Medications: Aspirin (Aspirin) 81 Mg Tabdr 81 MG PO DAILY TAB Clopidogrel (Plavix) 75 Mg Tab 75 MG PO DAILY Blood Clot Prevention #30 Ref 0 TAB Folic Acid (Folate) 1 Mg Tab 1 MG PO DAILY Nutritional Supplement Ref 0 TAB Gabapentin (Gabapentin) 600 Mg Tab 600 MG PO BID #60 Ref 0 TAB Glyburide (Glyburide) 5 Mg Tab 5 MG PO DAILY Take with meals at the same time each day Blood Sugar Management # 30 Ref 0 TAB Latanoprost Opth Drops (Xalatan Opth Drops) 0.005% Drops 1 DROP EACH EYE HS Glaucoma #2.5 Ref 0 ML Lovastatin (Lovastatin) 40 Mg Tab 40 MG PO DAILY Cholesterol Management #30 Ref 0 TAB Metformin (Metformin) 1,000 Mg Tab 1000 MG PO BIDPC With meals Blood Sugar Management #60 Ref 0 TAB Pantoprazole (Pantoprazole) 40 Mg Tab 40 MG PO DAILY Reflux #30 Ref 0 TAB Triamterene-Hydrochlorothiazide (Triamterene-Hydrochlorothiazide) 37.5-25 Mg Cap 1 CAP PO DAILY #30 Ref 0 Adina Monique MD Nov 23, 2016 12:43
[2016-11-23] MEDS ORDERED: GADODIAMIDE PF 287 MG/ML 20 ML VIAL (for RAD MRI) IV ONE (13:13)
--- NOTE | 2016-11-23 15:28 | RADRPT ---
EXAM DATE/TIME: 11/23/2016 00:00 [facility] COMPARISON: No previous studies available for comparison. INDICATIONS : Diabetic foot infection TECHNIQUE: Four-cuff ankle and brachial pressures were obtained. Pulse cuff waveform tracings of the ankles were recorded, and ankle-brachial indices were calculated. PRESSURES (mmHg): Brachial (arm): Right iv site Left 140 Ankle: Right CNO >260 Left 190 SHARLA: Right >1.85 Left 1.35 PULSED CUFF WAVEFORMS: Demonstrate normal amplitude bilaterally. CONCLUSION: Elevated ankle-brachial index on the right which would be assisted with densely calcified vessels.CT angiography of the abdominal aorta and lower extremities is recommended for further evaluation if cli nically indicated. Soren Baez MD on November 23, 2016 at 15:26 Board Certified Radiologist. This report was verified electronically.
--- NOTE | 2016-11-23 15:49 | RADHPO ---
EXAM DATE/TIME: 11/23/2016 12:59 [facility] COMPARISON: No previous studies available for comparison. INDICATIONS : Abscess. Wound on plantar surface of first MIP joint. CONTRAST: 17 cc Omniscan (gadodiamide) IV MEDICAL HISTORY : Carcinoma, prostate. Diabetes mellitus type 2. Hypertension. Renal failure. GERD. COPD. SURGICAL HISTORY : Rotator cuff, left. Prostatectomy. Fusion, cervical. Hernia. Lumbar laminectomy. ENCOUNTER: Subsequent ACUITY: 2 day PAIN SCORE: 0/10 LOCATION: Left foot TECHNIQUE: Multiplanar, multisequence MRI examination was performed without contrast and after the intravenous a dministration of gadolinium. FINDINGS: There is a subcutaneous abscess measuring 2.8 x 1.0 CM at the level of the first metatarsophalangeal joint at the plantar surface. There is no marrow edema to suggest osteomyelitis. The sesamoids and te ndons are intact. The hindfoot is unremarkable. CONCLUSION: 1. 2.8 x 1 cm subcutaneous abscess at the level of the first metatarsophalangeal joint. No evidence o f osteomyelitis Soren Baez MD on November 23, 2016 at 15:35 Board Certified Radiologist. This report was verified electronically.
[2016-11-23 16:00] VITALS: BP 140/76; PULSE 58; RESP 20; TEMP 97.9; O2SAT 95
[2016-11-23] MEDS: ACETAMINOPHEN/HYDROcodone 325 MG/10 MG TAB PO PRN (16:23)
[2016-11-23] MEDS ORDERED: MUPIROCIN 2% OINT 22 GM TUBE TOPICAL ONE (17:30)
[2016-11-23 20:00] VITALS: BP 100/69; PULSE 56; RESP 18; TEMP 97.2; O2SAT 93
[2016-11-23] MEDS: PRAVASTATIN SOD 40 MG TAB PO SCH (22:39)
[2016-11-23] MEDS: LATANOPROST 0.005% OPHT SOLN 2.5 ML BTL EACH EYE SCH (22:41)
[2016-11-24] VITALS: BP 132/79; PULSE 63; RESP 20; TEMP 96.7; O2SAT 99
[2016-11-24] MEDS: ACETAMINOPHEN/HYDROcodone 325 MG/5 MG TAB PO PRN
[2016-11-24] MEDS: SODIUM CHLORIDE 0.9% FLUSH 5 ML FLUSH FLUSH PRN (05:05)
[2016-11-24] MEDS: PIPERACIL-TAZO 3.375 GM PREMIX 50 ML IV SCH (05:05)
[2016-11-24] MEDS: INSULIN ASPART SUPPLEMENTAL SCALE SQ SCH ×4 (05:48→20:27)
[2016-11-24 08:00] VITALS: BP 124/86; PULSE 56; RESP 16; TEMP 97.3; O2SAT 100
[2016-11-24] MEDS: PANTOPRAZOLE SOD 40 MG DELAYED RELEASE TAB PO SCH (08:35)
[2016-11-24] MEDS: SODIUM CHLORIDE 0.9% FLUSH 5 ML FLUSH FLUSH SCH ×2 (08:35→20:30)
[2016-11-24] MEDS: THIAMINE HCL 100 MG TAB PO SCH (08:41)
[2016-11-24] MEDS: FOLIC ACID 1 MG TAB PO SCH (08:41)
[2016-11-24] MEDS: GABAPENTIN 300 MG CAP PO SCH ×2 (08:41→20:27)
[2016-11-24] MEDS: CLOPIDOGREL 75 MG TAB PO SCH (08:41)
[2016-11-24] MEDS: ASPIRIN EC 81 MG TABEC PO SCH (08:41)
[2016-11-24] MEDS: MUPIROCIN 2% OINT 22 GM TUBE TOPICAL SCH (08:42)
--- NOTE | 2016-11-24 09:39 | PD.POD ---
Subjective Podiatric Problems s/p bedside I&D x 2 (superficial on 11/22 and deep on 11/24) of the left plantar foot. Patient states he feels well but has some soreness in the foot with ambulation. He denies any n/v/f/h/c/sob. Pain score: 3 Past Med/Surg/Social History Social History Smoking Status: Former Smoker Objective Vital Signs Vital Signs Date Time Temp Pulse Resp B/P Pulse Ox O2 Delivery O2 Flow Rate FiO2 11/24/16 08:00 97.3 56 16 124/86 100 11/24/16 00:00 96.7 63 20 132/79 99 11/23/16 20:00 97.2 56 18 100/69 93 11/23/16 16:00 97.9 58 20 140/76 95 11/23/16 12:00 98.0 60 20 131/68 99 Coded Allergies: No Known Allergies (Verified , 11/21/16) Exam-Podiatry Remarks Derm: Left plantar submet 1 partial thickness ulcer 3cm x 3cm x 0, linear incision 1cm with circumferential tunneling in all direction, small amount of purulence extruded, erythema receded to MPJ level circumferentially. Biomechanical, Neuro, and Vasc are unchanged from initial eval Assessment & Plan A/P 1) left foot plantar abscess, with resolving cellulitis -s/p bedside I&D x 2 (superficial on 11/22 and deep on 11/24) of the left plantar foot -daily packing, instructions left for nursing -cont iv abx -wound cultures pending, however pt has been on abx for 3-4 days -would suggest 10-14 days of broad spectrum po abx at discharge -WBAT in surgical shoe, elevate while at rest Discharge Planning -Will need HHC at discharge (see nursing dressing changes for instructions) -Pt advised to make appt with his PCP for early next week to assist with the necessary referral his insurance requires -Likely d/c Monday or Monday pending resolution of cellulitis Kaelyn Saez DPM Nov 24, 2016 09:39
--- NOTE | 2016-11-24 09:47 | HHI.PR ---
Subjective Remarks Patient states he is eager to leave the hospital but does not want home health care nursing. Dr. Saez and I explained that he needs a nurse to do his dressing changes. Dr. Saez at bedside for I&D currently. Objective Vitals Vital Signs Date Time Temp Pulse Resp B/P Pulse Ox O2 Delivery O2 Flow Rate FiO2 11/24/16 08:00 97.3 56 16 124/86 100 11/24/16 00:00 96.7 63 20 132/79 99 11/23/16 20:00 97.2 56 18 100/69 93 11/23/16 16:00 97.9 58 20 140/76 95 11/23/16 12:00 98.0 60 20 131/68 99 I/O 11/23/16 11/23/16 11/23/16 11/24/16 11/24/16 11/24/16 07:00 15:00 23:00 07:00 15:00 23:00 Intake Total 320 ml 1750 ml 345 ml 290 ml Output Total 200 ml 200 ml Balance 120 ml 1750 ml 345 ml 90 ml Intake Oral 120 ml 750 ml 240 ml 120 ml IV Total 200 ml 1000 ml 105 ml 170 ml Output Urine Total 200 ml 200 ml # Voids 3 2 # Bowel Movements 0 0 1 Result Diagram: 11/22/1652411/22/16524 Objective Remarks GENERAL: Well-nourished, well-developed patient. SKIN: Warm and dry. HEAD: Normocephalic. EYES: No scleral icterus. No injection or drainage. NECK: Supple, trachea midline. No JVD or lymphadenopathy. CARDIOVASCULAR: Regular rate and rhythm without murmurs, gallops, or rubs. RESPIRATORY: Breath sounds equal bilaterally. No accessory muscle use. GASTROINTESTINAL: Abdomen soft, non-tender, nondistended. EXTREMITIES: No cyanosis, or edema. Left foot all of the hallux has swelling as well as a wound on the dorsum. NEUROLOGICAL: Awake, alert, and oriented x 3. Non-focal. Procedures Bedside I&D A/P Problem List: (1) Cellulitis of foot, left ICD Code: L03.116 Status: Acute (2) Type 2 diabetes mellitus ICD Code: E11.9 Status: Acute (3) MIRTA (acute kidney injury) ICD Code: N17.9 Status: Acute (4) Abscess of left great toe ICD Code: L02.612 Status: Acute Assessment and Plan -Diabetic foot infection with a subcutaneous abscess at the level of the first metatarsophalangeal joint of the left foot - status post bedside s/p bedside I& D x 2 (superficial on 11/22 and deep on 11/24) of the left plantar foot with Dr. Saez, last I&D this morning. On Zosyn IV. Will transition to Levaquin and clindamycin. Arrange home health care with dressing changes. Follow-up with with PCP within 1 week (he needs referral to podiatry from his primary care physician at [facility]). -Acute kidney injury, resolved. -Type 2 diabetes with peripheral neuropathy. Continue home medications. Discharge Planning Discharge home with home health care Alyssa Rodriguez MD Nov 24, 2016 09:47
--- NOTE | 2016-11-24 09:49 | HHI.FF ---
Face to Face Verification Diagnosis: (1) Abscess of left great toe (2) Type 2 diabetes mellitus (3) Diabetic foot infection Physical Therapy Order: Evaluate and Treat Home Health Nursing Order: Medical education Diabetic education Wound care and dressing changes Nursing assessment with vital signs I have seen patient Moose Reeder on 11/24/16. My clinical findings support the need for the requested home health care services because: Deconditioned w/ increased weakness Need for psychosocial assistance I certify that my clinical findings support that this patient is homebound because: Need for psychosocial assistance Alyssa Rodriguez MD Nov 24, 2016 09:49
[2016-11-24 12:00] VITALS: BP 131/74; PULSE 61; RESP 16; TEMP 97.4; O2SAT 100
[2016-11-24] MEDS: LACTOBACILLUS ACIDOPHILUS TAB PO SCH ×2 (12:05→17:25)
[2016-11-24] MEDS: CLINDAMYCIN 150 MG CAP PO SCH ×3 (12:05→23:04)
[2016-11-24 15:46] VITALS: BP 167/79; PULSE 68; RESP 16; TEMP 96.8; O2SAT 100
[2016-11-24] MEDS: ACETAMINOPHEN/HYDROcodone 325 MG/10 MG TAB PO PRN (16:02)
[2016-11-24 20:00] VITALS: BP 108/67; PULSE 71; RESP 20; TEMP 99.5; O2SAT 97
[2016-11-24] MEDS: PRAVASTATIN SOD 40 MG TAB PO SCH (20:27)
[2016-11-24] MEDS: AMOXICILLIN/CLAVULANATE K 875 MG TAB PO SCH (20:27)
[2016-11-24] MEDS: LATANOPROST 0.005% OPHT SOLN 2.5 ML BTL EACH EYE SCH (21:08)
[2016-11-25] VITALS (13 sets, daily range): BP systolic 115–149; BP diastolic 69–84; PULSE 53–80; RESP 16–20; TEMP 96–99.1; O2SAT 95–100
[2016-11-25] MEDS: CLINDAMYCIN 150 MG CAP PO SCH ×3 (05:15→18:03)
[2016-11-25] MEDS: INSULIN ASPART SUPPLEMENTAL SCALE SQ SCH ×4 (06:35→20:30)
--- NOTE | 2016-11-25 07:51 | RADHPO ---
EXAM DATE/TIME: 11/25/2016 07:38 [facility] COMPARISON: CT BRAIN W/O CONTRAST, April 28, 2015, 18:45. INDICATIONS : Trauma. Fall. Hit head. Cephalgia. Dizziness. RADIATION DOSE: 62.03 CTDIvol (mGy) MEDICAL HISTORY : Diabetes mellitus type 2. Chronic obstructive pulmonary disease. Gastroesophageal reflux disease.Hype rtension. SURGICAL HISTORY : Cholecystectomy. ENCOUNTER: Initial ACUITY: 1 day PAIN SCALE: 7/10 LOCATION: cranial TECHNIQUE: Multiple contiguous axial images were obtained of the head. Using automated exposure control and adj ustment of the mA and/or kV according to patient size, radiation dose was kept as low as reasonably a chievable to obtain optimal diagnostic quality images. FINDINGS: There is marked central and cortical atrophy with dilatation of ventricular and sulcal spaces. Minima l areas of low attenuation are seen within the white matter. There is no parenchymal hemorrhage, acut e infarction or mass lesion identified. There are no extra-axial fluid collections appreciated. The posterior fossa is unremarkable with midline fourth ventricle. The portion of the orbits and parana jacquelyn sinuses visualized are unremarkable. CONCLUSION: Cerebral atrophy. Chronic ischemic small vessel vasculopathy. No acute intracranial abnormality. Isidoro Garcia MD on November 25, 2016 at 7:48 Board Certified Radiologist. This report was verified electronically.
[2016-11-25] MEDS: AMOXICILLIN/CLAVULANATE K 875 MG TAB PO SCH ×2 (09:20→20:29)
[2016-11-25] MEDS: THIAMINE HCL 100 MG TAB PO SCH (09:20)
[2016-11-25] MEDS: SODIUM CHLORIDE 0.9% FLUSH 5 ML FLUSH FLUSH SCH ×2 (09:20→20:29)
[2016-11-25] MEDS: FOLIC ACID 1 MG TAB PO SCH (09:20)
[2016-11-25] MEDS: PANTOPRAZOLE SOD 40 MG DELAYED RELEASE TAB PO SCH (09:21)
[2016-11-25] MEDS: GABAPENTIN 300 MG CAP PO SCH ×2 (09:21→20:29)
[2016-11-25] MEDS: LACTOBACILLUS ACIDOPHILUS TAB PO SCH ×3 (09:21→18:03)
[2016-11-25] MEDS: CLOPIDOGREL 75 MG TAB PO SCH (09:21)
[2016-11-25] MEDS: MUPIROCIN 2% OINT 22 GM TUBE TOPICAL SCH (09:22)
[2016-11-25] MEDS: ASPIRIN EC 81 MG TABEC PO SCH (09:22)
--- NOTE | 2016-11-25 10:26 | HHI.PR ---
Subjective Remarks Patient had a fall that was unwitnessed in his room this morning. He states he was walking and his legs are weak and he fell down. He hit his head and his left elbow. Objective Vitals Vital Signs Date Time Temp Pulse Resp B/P Pulse Ox O2 Delivery O2 Flow Rate FiO2 11/25/16 10:23 60 122/73 11/25/16 08:23 72 133/79 100 11/25/16 07:36 80 120/73 95 11/25/16 07:33 69 136/84 100 11/25/16 07:30 97.5 69 16 138/70 99 11/25/16 07:00 96.8 62 20 139/77 97 11/25/16 00:00 99.1 67 20 133/73 99 11/24/16 20:00 99.5 71 20 108/67 97 11/24/16 15:46 96.8 68 16 167/79 100 11/24/16 12:00 97.4 61 16 131/74 100 I/O 11/24/16 11/24/16 11/24/16 11/25/16 11/25/16 11/25/16 07:00 15:00 23:00 07:00 15:00 23:00 Intake Total 290 ml 840 ml 240 ml 120 ml Output Total 200 ml Balance 90 ml 840 ml 240 ml 120 ml Intake Oral 120 ml 840 ml 240 ml 120 ml IV Total 170 ml 0 ml Output Urine Total 200 ml # Voids 2 6 2 # Bowel Movements 1 1 0 0 Result Diagram: 11/22/16 0525 11/22/16 0525 Objective Remarks GENERAL: Well-nourished, well-developed patient. SKIN: Warm and dry. HEAD: Patient has a 2 cm laceration at the left parietal region which is well approximated and not bleeding. EYES: No scleral icterus. No injection or drainage. NECK: Supple, trachea midline. No JVD or lymphadenopathy. CARDIOVASCULAR: Regular rate and rhythm without murmurs, gallops, or rubs. RESPIRATORY: Breath sounds equal bilaterally. No accessory muscle use. GASTROINTESTINAL: Abdomen soft, non-tender, nondistended. EXTREMITIES: No cyanosis, or edema. Left foot all of the hallux has swelling as well as a wound on the dorsum. NEUROLOGICAL: Awake, alert, and oriented to self, month. Slightly confused but after several prompts is able to tell me the correct year and the president of [employer]. Moves all extremities well. Non-focal. Procedures Bedside I&D A/P Problem List: (1) Cellulitis of foot, left ICD Code: L03.116 Status: Resolved (2) Type 2 diabetes mellitus ICD Code: E11.9 Status: Chronic (3) MIRTA (acute kidney injury) ICD Code: N17.9 Status: Resolved (4) Abscess of left great toe ICD Code: L02.612 Status: Acute (5) Diabetic foot infection ICD Code: E11.69 Status: Acute (6) CHI (closed head injury) ICD Code: S09.90XA Status: Acute (7) Fall ICD Code: W19.XXXA Status: Acute Assessment and Plan -Diabetic foot infection with a subcutaneous abscess at the level of the first metatarsophalangeal joint of the left foot - status post bedside s/p bedside I& D x 2 (superficial on 11/22 and deep on 11/24) of the left plantar foot with Dr. Saez, wound cultures are pending. Continue Levaquin and clindamycin. Dr. Saez to change the dressing this evening. Arrange home health care with dressing changes. Follow-up with with PCP within 1 week after discharge (he needs referral to podiatry from his primary care physician at [facility]). -Unwitnessed fall in his room with closed head injury and small laceration the left parietal area. Head CT was negative. The patient is mildly confused today and may have a concussion. We will continue with neuro checks as per hospital protocol. -Acute kidney injury, resolved. -Type 2 diabetes with peripheral neuropathy. Continue home medications. -DVT prophylaxis with Lovenox. Discharge Planning Discharge home with home health care in 1-2 days. Alyssa Rodriguez MD Nov 25, 2016 10:26
--- NOTE | 2016-11-25 18:58 | PD.POD ---
Subjective Podiatric Problems s/p bedside I&D x 2 (superficial on 11/22 and deep on 11/24) of the left plantar foot. Patient states he feels well but has some soreness in the foot with ambulation. He had a fall today and states that his head has been sore. has been following this closely and CT of the head was negative. He denies any n/v/f/h/c/sob. Pain score: 3 Past Med/Surg/Social History Social History Smoking Status: Former Smoker Objective Vital Signs Vital Signs Date Time Temp Pulse Resp B/P Pulse Ox O2 Delivery O2 Flow Rate FiO2 11/25/16 15:50 56 142/82 11/25/16 15:50 56 115/75 11/25/16 15:49 96.6 53 20 128/76 100 11/25/16 12:06 71 119/69 100 11/25/16 12:03 62 133/79 98 11/25/16 12:00 96.7 55 20 127/76 98 11/25/16 10:23 60 122/73 11/25/16 08:23 72 133/79 100 11/25/16 07:36 80 120/73 95 11/25/16 07:33 69 136/84 100 11/25/16 07:30 97.5 69 16 138/70 99 11/25/16 07:00 96.8 62 20 139/77 97 11/25/16 00:00 99.1 67 20 133/73 99 11/24/16 20:00 99.5 71 20 108/67 97 Coded Allergies: No Known Allergies (Verified , 11/21/16) Exam-Podiatry Remarks Left submet 1 0.75cm linear incision with mild serous drainage but no purulence. Erythema to MPJ level, decreased from distal hallux. No pain with ROM. No malodor. Neuro, Bio, and Vasc: unchanged from previous eval Assessment & Plan A/P 1) left foot plantar abscess, with resolving cellulitis -s/p bedside I&D x 2 (superficial on 11/22 and deep on 11/24) of the left plantar foot -daily packing, instructions left for nursing -cont iv abx -would suggest 10-14 days of broad spectrum po abx at discharge -WBAT in surgical shoe, elevate while at rest -erythema may not fully resolve while in house depending on the final organism isolated, if any concern then 2 weeks of iv abx can be utilized opposed to po -will cont to follow intermittently while in house Kaelyn Saez DPM Nov 25, 2016 18:57
[2016-11-25] MEDS: PRAVASTATIN SOD 40 MG TAB PO SCH (20:29)
[2016-11-25] MEDS: LATANOPROST 0.005% OPHT SOLN 2.5 ML BTL EACH EYE SCH (20:33)
[2016-11-26 00:05] VITALS: BP 130/76; PULSE 58; RESP 18; TEMP 97.1; O2SAT 99
[2016-11-26] MEDS: CLINDAMYCIN 150 MG CAP PO SCH ×4 (00:07→17:41)
[2016-11-26 04:42] VITALS: BP 136/79; PULSE 60; RESP 16; TEMP 97.9; O2SAT 98
[2016-11-26] MEDS: INSULIN ASPART SUPPLEMENTAL SCALE SQ SCH ×4 (06:22→22:01)
[2016-11-26 08:00] VITALS: BP 142/73; PULSE 87; RESP 20; TEMP 97.6; O2SAT 99
[2016-11-26] MEDS: CLOPIDOGREL 75 MG TAB PO SCH (08:56)
[2016-11-26] MEDS: AMOXICILLIN/CLAVULANATE K 875 MG TAB PO SCH ×2 (08:56→22:02)
[2016-11-26] MEDS: LACTOBACILLUS ACIDOPHILUS TAB PO SCH ×3 (08:56→17:41)
[2016-11-26] MEDS: ASPIRIN EC 81 MG TABEC PO SCH (08:56)
[2016-11-26] MEDS: THIAMINE HCL 100 MG TAB PO SCH (08:57)
[2016-11-26] MEDS: FOLIC ACID 1 MG TAB PO SCH (08:57)
[2016-11-26] MEDS: PANTOPRAZOLE SOD 40 MG DELAYED RELEASE TAB PO SCH ×2 (08:57→12:58)
[2016-11-26] MEDS: GABAPENTIN 300 MG CAP PO SCH ×2 (08:57→22:02)
[2016-11-26] MEDS: MORPHINE SULFATE 4 MG/ML INJ IV PRN (09:01)
[2016-11-26] MEDS: SODIUM CHLORIDE 0.9% FLUSH 5 ML FLUSH FLUSH SCH ×2 (09:01→21:00)
[2016-11-26] MEDS: MUPIROCIN 2% OINT 22 GM TUBE TOPICAL SCH (09:04)
--- NOTE | 2016-11-26 10:05 | HHI.PR ---
Subjective Remarks Patient seen and examined today with Dr. Rodriguez. Patient states that things it is not going his way this morning. His foot is hurting more than it did before starting radiated into his ankle. States it is not getting enough food when he eats. Objective Vitals Vital Signs Date Time Temp Pulse Resp B/P Pulse Ox O2 Delivery O2 Flow Rate FiO2 11/26/16 08:00 97.6 87 20 142/73 99 11/26/16 04:42 97.9 60 16 136/79 98 11/26/16 00:05 97.1 58 18 130/76 99 11/25/16 21:16 96.0 63 16 139/76 100 149/77 142/71 11/25/16 15:50 56 142/82 11/25/16 15:50 56 115/75 11/25/16 15:49 96.6 53 20 128/76 100 11/25/16 12:06 71 119/69 100 11/25/16 12:03 62 133/79 98 11/25/16 12:00 96.7 55 20 127/76 98 11/25/16 10:23 60 122/73 I/O 11/25/16 11/25/16 11/25/16 11/26/16 11/26/16 11/26/16 07:00 15:00 23:00 07:00 15:00 23:00 Intake Total 120 ml 630 ml 0 ml 0 ml Output Total 850 ml 600 ml Balance 120 ml -220 ml 0 ml -600 ml Intake Oral 120 ml 630 ml IV Total 0 ml 0 ml 0 ml Output Urine Total 850 ml 600 ml # Voids 2 1 # Bowel Movements 0 1 0 Result Diagram: 11/22/1625 11/22/16 0525 Objective Remarks GENERAL: Well-developed, well-nourished, in no acute distress. alert and orientated HEENT: Head is normocephalic without any lesions or masses noted. Facial features are symmetric. Eyes: Extraocular muscles are intact. Conjunctivae were clear. NECK: Supple without any masses. Trachea midline no deviation. No JVD, CARDIAC: Regular rhythm, regular rate. S1/S2 are heard. No murmurs gallops or rubs. LUNGS: Clear to auscultation bilaterally. No wheeze, rhonchi or rales. No use of accessory muscles on inspiration or expiration. ABDOMEN: Soft, nontender. Nondistended. Bowel sounds heard in all 4 quadrants. No organomegaly or masses. Negative rebound, negative guarding EXTREMITIES: No edema, pulses are equal bilaterally. No cyanosis or clubbing NEUROLOGY: Mood and affect appear appropriate. Cranial nerves II through XII grossly intact. Moving all extremities, speech is clear Procedures Bedside I&D Urinary Catheter: No Vascular Central Line Catheter: No A/P Assessment and Plan -Diabetic foot infection with a subcutaneous abscess at the level of the first metatarsophalangeal joint of the left foot - status post bedside s/p bedside I& D x 2 (superficial on 11/22 and deep on 11/24) of the left plantar foot with Dr. Saez, wound cultures with MRSA. Continue Levaquin and clindamycin. Dr. Saez following with outpatient hospital, we'll arrange home health care for dressing changes. Follow-up with with PCP within 1 week after discharge (he needs referral to podiatry from his primary care physician at [facility]). -Unwitnessed fall in his room with closed head injury and small laceration the left parietal area. Head CT was negative. Patient was monitored with neuro checks as per hospital protocol for postconcussion syndrome. -Acute kidney injury, resolved. -Diabetes type 2 with peripheral neuropathy. Continue home medications. Accu- Cheks with sliding scale insulin. Only required 1 unit in the last 2 days. Will discontinue Accu-Cheks and sliding scale insulin -DVT prophylaxis with Lovenox. Written by Sunday Gómez PA-C, acting as scribe for Dr. Rodriguez on 11/26/16 at 1130. The documentation accurately reflects the work and decisions performed face-to- face by Dr. Rodriguez on 11/26/16 at 1130. Discharge Planning Discussed with patient and . The patient did fall yesterday. Per his he does follow a home sometimes. I feel that the patient will be better cared for in a [facility] facility until the foot heals. Patient and are agreeable. We will arrange for discharge to [facility] facility with additional 10 days of by mouth antibiotics. Patient's will make him an appointment with his primary care physician to be seen next week so that he can get referred to a graphic illustrator within the [facility] work. Sunday Gómez 4, 2017 10:05 Alyssa Rodriguez MD Nov 26, 2016 12:02
[2016-11-26 12:00] VITALS: BP 141/76; PULSE 56; RESP 18; TEMP 97.7; O2SAT 100
[2016-11-26] MEDS ORDERED: CLIN1CAP6 PO (12:04)
[2016-11-26] MEDS ORDERED: BACT800T5 PO (12:04)
--- NOTE | 2016-11-26 12:17 | HHI.DS ---
Discharge Summary Admission Date Nov 25, 2016 at 08:27 Discharge Date: Nov 28, 2016 Admitting Diagnosis diabetic foot infection (1) Cellulitis of foot, left ICD Code: L03.116 (2) Type 2 diabetes mellitus ICD Code: E11.9 (3) MIRTA (acute kidney injury) ICD Code: N17.9 (4) Abscess of left great toe ICD Code: L02.612 (5) Diabetic foot infection ICD Code: E11.69 (6) CHI (closed head injury) ICD Code: S09.90XA (7) Fall ICD Code: W19.XXXA Procedures Bedside I&D left foot [address] Saez Brief History - From Admission 76-year-old male with history of NIDDM, hyperlipidemia, hypertension, GERD, neuropathy, and prostate cancer presents with complaint of redness and swelling to his left foot, starting over the top of foot, which began 1.5-2 weeks ago but became worse over the last few days. He denies any pain to the foot. Denies any injuries to his foot or ankle recently. Denies any fevers or chills. Denies any chest pain, shortness of breath, abdominal pain, nausea, vomiting or diarrhea. He denies any history of gout but does drink a sixpack of beer daily. He also admits to some non-pruritic red spots on his left thigh which appeared since getting here, but denies any throat swelling or wheezing. Denies allergy to penicillin. States he saw a specialty trimmer Dr. Hdez one year ago. CBC/BMP: 11/22/16 0525 11/22/16 0525 Significant Findings Foot wound cultures positive for MRSA, sensitive to clindamycin and Bactrim Imaging Last Impressions Head CT 11/25/16 0000 Signed Impressions: Service Date/Time: Friday, November 25, 2016 07:38 - CONCLUSION: Cerebral atrophy. Chronic ischemic small vessel vasculopathy. No acute intracranial abnormality. Isidoro Garcia MD Foot MRI 11/23/16 0000 Signed Impressions: Service Date/Time: Wednesday, November 23, 2016 12:59 - CONCLUSION: 1. 2.8 x 1 cm subcutaneous abscess at the level of the first metatarsophalangeal joint. No evidence of osteomyelitis Soren Baez MD Foot X-Ray 11/21/16 0000 Signed Impressions: Service Date/Time: Monday, November 21, 2016 12:30 - CONCLUSION: Marked soft tissue swelling. I do not see evidence for osteomyelitis or gouty erosions. Nelson Groves MD FACR PE at Discharge GENERAL: Well-developed, well-nourished, in no acute distress. alert and orientated HEENT: Head is normocephalic without any lesions or masses noted. Facial features are symmetric. Eyes: Extraocular muscles are intact. Conjunctivae were clear. NECK: Supple without any masses. Trachea midline no deviation. No JVD, CARDIAC: Regular rhythm, regular rate. S1/S2 are heard. No murmurs gallops or rubs. LUNGS: Clear to auscultation bilaterally. No wheeze, rhonchi or rales. No use of accessory muscles on inspiration or expiration. ABDOMEN: Soft, nontender. Nondistended. Bowel sounds heard in all 4 quadrants. No organomegaly or masses. Negative rebound, negative guarding EXTREMITIES: No edema, pulses are equal bilaterally. No cyanosis or clubbing NEUROLOGY: Mood and affect appear appropriate. Cranial nerves II through XII grossly intact. Moving all extremities, speech is clear Hospital Course Diabetic foot infection with a subcutaneous abscess at the level of the first metatarsophalangeal joint of the left foot - status post bedside s/p bedside I& D x 2 (superficial on 11/22 and deep on 11/24) of the left plantar foot with Dr. Saez, wound cultures with MRSA. Continue clindamycin and bactrim PO 10 more days. start Rocephin IV in place of Augmentin for gram-negative organism coverage. Dr. Saez following with patient in hospital, patient to follow-up with with PCP within 1 week after discharge (he needs referral to podiatry from his primary care physician at [facility]). -Unwitnessed fall in his room with closed head injury and small laceration the left parietal area. Head CT was negative. Patient was monitored with neuro checks as per hospital protocol for postconcussion syndrome. Gait good with PT. He was declined by [facility] for SNF. DC home with [facility] today. -Acute kidney injury, resolved. -Diabetes type 2 with peripheral neuropathy. Continue home medications. Pt Condition on Discharge: Stable Discharge Disposition: Discharge to SNF Discharge Time: > 30 minutes Discharge Instructions DIET: Follow Instructions for: Diabetic Diet Activities you can perform: Weight Bearing as Leslie, See Additionl Instruction Other Activity Instructions: wear surgical shoe when ambulating, elevate left foot while at rest Follow up Referrals: PCP Follow-up - 1 Week with [facility] - 2 Weeks with Kaelyn Saez DPM SNF/[facility]/ with [facility] New Medications: Clindamycin (Clindamycin) 300 Mg Cap 600 MG PO Q8H Infection #30 Ref 0 CAP Sulfamethoxazole-Trimethoprim (Bactrim DS) 800-160 Mg Tab 1 TAB PO BID Infection #20 Ref 0 TAB Continued Medications: Aspirin (Aspirin) 81 Mg Tabdr 81 MG PO DAILY TAB Clopidogrel (Plavix) 75 Mg Tab 75 MG PO DAILY Blood Clot Prevention #30 Ref 0 TAB Folic Acid (Folate) 1 Mg Tab 1 MG PO DAILY Nutritional Supplement Ref 0 TAB Gabapentin (Gabapentin) 600 Mg Tab 600 MG PO BID #60 Ref 0 TAB Glyburide (Glyburide) 5 Mg Tab 5 MG PO DAILY Take with meals at the same time each day Blood Sugar Management # 30 Ref 0 TAB Latanoprost Opth Drops (Xalatan Opth Drops) 0.005% Drops 1 DROP EACH EYE HS Glaucoma #2.5 Ref 0 ML Lovastatin (Lovastatin) 40 Mg Tab 40 MG PO DAILY Cholesterol Management #30 Ref 0 TAB Metformin (Metformin) 1,000 Mg Tab 1000 MG PO BIDPC With meals Blood Sugar Management #60 Ref 0 TAB Pantoprazole (Pantoprazole) 40 Mg Tab 40 MG PO DAILY Reflux #30 Ref 0 TAB Triamterene-Hydrochlorothiazide (Triamterene-Hydrochlorothiazide) 37.5-25 Mg Cap 1 CAP PO DAILY #30 Ref 0 CAP Alyssa Rodriguez MD Nov 26, 2016 12:17
[2016-11-26 16:00] VITALS: BP 144/71; PULSE 56; RESP 18; TEMP 97.6; O2SAT 98
[2016-11-26 20:21] VITALS: BP 113/64; PULSE 77; RESP 12; TEMP 97.1; O2SAT 99
[2016-11-26] MEDS: PRAVASTATIN SOD 40 MG TAB PO SCH (22:02)
[2016-11-26] MEDS: LATANOPROST 0.005% OPHT SOLN 2.5 ML BTL EACH EYE SCH (22:02)
[2016-11-27] MEDS: CLINDAMYCIN 150 MG CAP PO SCH ×4 (00:31→17:34)
[2016-11-27 00:32] VITALS: BP 120/77; PULSE 78; RESP 16; TEMP 97.9; O2SAT 96
[2016-11-27] MEDS: INSULIN ASPART SUPPLEMENTAL SCALE SQ SCH (06:26)
[2016-11-27] MEDS: SODIUM CHLORIDE 0.9% FLUSH 5 ML FLUSH FLUSH SCH ×2 (09:00→21:10)
[2016-11-27] MEDS: ASPIRIN EC 81 MG TABEC PO SCH (09:12)
[2016-11-27] MEDS: THIAMINE HCL 100 MG TAB PO SCH (09:12)
[2016-11-27] MEDS: GABAPENTIN 300 MG CAP PO SCH ×2 (09:12→21:10)
[2016-11-27] MEDS: LACTOBACILLUS ACIDOPHILUS TAB PO SCH ×3 (09:12→17:34)
[2016-11-27] MEDS: PANTOPRAZOLE SOD 40 MG DELAYED RELEASE TAB PO SCH (09:13)
[2016-11-27] MEDS: MUPIROCIN 2% OINT 22 GM TUBE TOPICAL SCH (09:13)
[2016-11-27] MEDS: CLOPIDOGREL 75 MG TAB PO SCH (09:13)
[2016-11-27] MEDS: FOLIC ACID 1 MG TAB PO SCH (09:13)
[2016-11-27 09:17] VITALS: BP 167/87; PULSE 56; RESP 18; TEMP 96.5; O2SAT 100
[2016-11-27] MEDS: AMOXICILLIN/CLAVULANATE K 875 MG TAB PO SCH ×2 (09:17→21:10)
--- NOTE | 2016-11-27 10:15 | HHI.PR ---
Subjective Remarks Patient seen and examined today with Dr. Rodriguez. Patient denies any new complaints. Awaiting [employer] authorization for transfer to rehabilitation facility. Objective Vitals Vital Signs Date Time Temp Pulse Resp B/P Pulse Ox O2 Delivery O2 Flow Rate FiO2 11/27/16 09:17 96.5 56 18 167/87 100 11/27/16 00:32 97.9 78 16 120/77 96 11/26/16 20:21 97.1 77 12 113/64 99 11/26/16 16:00 97.6 56 18 144/71 98 11/26/16 12:00 97.7 56 18 141/76 100 I/O 11/26/16 11/26/16 11/26/16 11/27/16 11/27/16 11/27/16 07:00 15:00 23:00 07:00 15:00 23:00 Intake Total 0 ml 754 ml Output Total 600 ml Balance -600 ml 754 ml Intake Oral 750 ml IV Total 0 ml 4 ml Output Urine Total 600 ml # Voids 5 2 1 # Bowel Movements 0 1 Objective Remarks GENERAL: Well-developed, well-nourished, in no acute distress. alert and orientated HEENT: Head is normocephalic without any lesions or masses noted. Facial features are symmetric. Eyes: Extraocular muscles are intact. Conjunctivae were clear. NECK: Supple without any masses. Trachea midline no deviation. No JVD, CARDIAC: Regular rhythm, regular rate. S1/S2 are heard. No murmurs gallops or rubs. LUNGS: Clear to auscultation bilaterally. No wheeze, rhonchi or rales. No use of accessory muscles on inspiration or expiration. ABDOMEN: Soft, nontender. Nondistended. Bowel sounds heard in all 4 quadrants. No organomegaly or masses. Negative rebound, negative guarding EXTREMITIES: No edema, pulses are equal bilaterally. No cyanosis or clubbing NEUROLOGY: Mood and affect appear appropriate. Cranial nerves II through XII grossly intact. Moving all extremities, speech is clear Procedures Bedside I&D left foot [address] Saez Urinary Catheter: No Vascular Central Line Catheter: No A/P Assessment and Plan -Diabetic foot infection with a subcutaneous abscess at the level of the first metatarsophalangeal joint of the left foot - status post bedside s/p bedside I& D x 2 (superficial on 11/22 and deep on 11/24) of the left plantar foot with Dr. Saez, wound cultures with MRSA. Continue clindamycin and start Rocephin IV in place of Augmentin for gram-negative organism coverage. Dr. Saez following with outpatient hospital, plan discharge to rehabilitation facility at this time. Follow-up with with PCP within 1 week after discharge (he needs referral to podiatry from his primary care physician at [facility]). -Unwitnessed fall in his room with closed head injury and small laceration the left parietal area. Head CT was negative. Patient was monitored with neuro checks as per hospital protocol for postconcussion syndrome. -Acute kidney injury, resolved. -Diabetes type 2 with peripheral neuropathy. Continue home medications. Discontinued Accu-Cheks with sliding scale insulin. -DVT prophylaxis with Lovenox. Written by Sunday Gómez PA-C, acting as scribe for Dr. Rodriguez on 11/27/16 at 1218. The documentation accurately reflects the work and decisions performed face-to- face by Dr. Rodriguez on 11/27/16 at 1218. Discharge Planning Awaiting [facility] authorization for [facility] facility. Discussed with patient and his at bedside. Sunday Gómez Nov 27, 2016 10:15 Alyssa Rodriguez MD Nov 27, 2016 14:39
[2016-11-27] MEDS ORDERED: cefTRIAXone INJ 1,000 MG in SODIUM CHLORIDE 0.9% INJ 100 ML IV SCH (13:00)
[2016-11-27 13:27] VITALS: BP 160/84; PULSE 59; RESP 16; TEMP 96.9; O2SAT 96
[2016-11-27 17:48] VITALS: BP 147/75; PULSE 54; RESP 16; TEMP 96.4; O2SAT 100
[2016-11-27 20:00] VITALS: BP 141/75; PULSE 59; RESP 20; TEMP 96.6; O2SAT 98
[2016-11-27] MEDS: LATANOPROST 0.005% OPHT SOLN 2.5 ML BTL EACH EYE SCH (21:09)
[2016-11-27] MEDS: PRAVASTATIN SOD 40 MG TAB PO SCH (21:10)
[2016-11-28] VITALS: BP 133/77; PULSE 63; RESP 18; TEMP 98.4; O2SAT 96
[2016-11-28] MEDS: CLINDAMYCIN 150 MG CAP PO SCH ×3 (01:06→11:46)
[2016-11-28 08:00] VITALS: BP 140/77; PULSE 48; RESP 20; TEMP 96.9
[2016-11-28] MEDS: FOLIC ACID 1 MG TAB PO SCH (09:25)
[2016-11-28] MEDS: THIAMINE HCL 100 MG TAB PO SCH (09:25)
[2016-11-28] MEDS: LACTOBACILLUS ACIDOPHILUS TAB PO SCH (09:25)
[2016-11-28] MEDS: PANTOPRAZOLE SOD 40 MG DELAYED RELEASE TAB PO SCH (09:25)
[2016-11-28] MEDS: GABAPENTIN 300 MG CAP PO SCH (09:26)
[2016-11-28] MEDS: CLOPIDOGREL 75 MG TAB PO SCH (09:26)
[2016-11-28] MEDS: SODIUM CHLORIDE 0.9% FLUSH 5 ML FLUSH FLUSH SCH (09:29)
[2016-11-28] MEDS: AMOXICILLIN/CLAVULANATE K 875 MG TAB PO SCH (09:29)
[2016-11-28] MEDS: ASPIRIN EC 81 MG TABEC PO SCH (09:33)
[2016-11-28] MEDS: MORPHINE SULFATE 4 MG/ML INJ IV PRN (09:35)
[2016-11-28] MEDS: MUPIROCIN 2% OINT 22 GM TUBE TOPICAL SCH (09:38)
[2016-11-28 12:00] VITALS: BP 167/97; PULSE 68; RESP 20; TEMP 96.7; O2SAT 99
== END 2016-11-28 13:48 | disposition home health service (06) | DRG 638 ==
LOC: PHED 10:17 → PHEDA 13:02 → PH3B 14:00 → PH3A 20:50 → OBSVTOIN 11-25 08:27
PROVIDERS: ADMIT Family Medicine; ATTEND Family Medicine
PROC: 0J9R3ZX Drainage of Left Foot Subcutaneous Tissue and Fascia, Percutaneous Approach, Diagnostic (ICD-10-PCS; principal; 2016-11-21)
PROC: 0HDNXZZ Extraction of Left Foot Skin, External Approach (ICD-10-PCS; 2016-11-22)
DX: E11.628 Type 2 diabetes mellitus with other skin complications (principal); L02.612 Cutaneous abscess of left foot; N17.9 Acute kidney failure, unspecified; L03.116 Cellulitis of left lower limb; E11.22 Type 2 diabetes mellitus with diabetic chronic kidney disease; E86.0 Dehydration; E11.42 Type 2 diabetes mellitus with diabetic polyneuropathy; N18.9 Chronic kidney disease, unspecified; I12.9 Hypertensive chronic kidney disease with stage 1 through stage 4 chronic kidney disease, or unspecified chronic kidney disease; E78.5 Hyperlipidemia, unspecified; K21.9 Gastro-esophageal reflux disease without esophagitis; E78.00 Pure hypercholesterolemia, unspecified; J44.9 Chronic obstructive pulmonary disease, unspecified; Z85.46 Personal history of malignant neoplasm of prostate; Z87.891 Personal history of nicotine dependence; Z98.1 Arthrodesis status; L84 Corns and callosities; S01.01XA Laceration without foreign body of scalp, initial encounter; W19.XXXA Unspecified fall, initial encounter; Y92.230 Patient room in hospital as the place of occurrence of the external cause; Y93.01 Activity, walking, marching and hiking; Z79.84 Long term (current) use of oral hypoglycemic drugs
CPT/HCPCS: 10160; 70450; 73630; 73720; 80048; 80053; 82948; 85025; 85652; 86140; 86403; 87040; 87070; 87186; 87205; 93922; 96365; A9579; G0378; J0696; J1815; J2270; J2543; L3260

== ENCOUNTER 2016-12-31 19:20 | Emergency (ER) | payer MEDICARE, OTHER ==
[~2016-12-31] VITALS: Ht 175.3 cm; Wt 70.0 kg
[~2016-12-31 19:20] MED LIST changes: +ASPI1TAB69 PO; -ASPI81 CHEW; -B-12500T3 PO; +BACT800T5 PO; -CHOL1CAP6 PO; +CLIN1CAP6 PO; -FOLI1TAB PO; +FOLI1TAB4 PO; -GABA400 PO; +GABA600T PO; -GLUCTAB PO; -GLYB1TAB51; +GLYB5TAB3 PO; -LOVA1TAB47 PO; +LOVA40TA PO; -MAXZ25 PO; +METF1000 PO; -METO25 PO; +PANT40TA3 PO; -PLAV75TA PO; +PLAV75TA29 PO; -PROT40TA PO; +TRIA37.53 PO
[2016-12-31] MEDS ORDERED: SODIUM CHLOR 0.9% 1000 ML INJ 1,000 ML IV SCH (19:21)
[2016-12-31 19:23] VITALS: BP 178/91; PULSE 79; RESP 18; TEMP 97.9; O2SAT 98
[2016-12-31] MEDS ORDERED: LORazepam 2 MG/ML VIAL IV PUSH ONE (19:30)
[2016-12-31] MEDS ORDERED: SODIUM CHLORIDE 0.9% FLUSH 10 ML FLUSH IVF PRN (19:30)
[2016-12-31 19:43] VITALS: BP 178/74; PULSE 75; RESP 18; O2SAT 98
--- NOTE | 2016-12-31 19:56 | RADRPT ---
EXAM DATE/TIME: 12/31/2016 19:32 [facility] COMPARISON: CT BRAIN W/O CONTRAST, November 25, 2016, 7:38. INDICATIONS : Trauma; fall on tile floor. RADIATION DOSE: 36.78 CTDIvol (mGy) MEDICAL HISTORY : Hypertension. Carcinoma, prostate. SURGICAL HISTORY : None. ENCOUNTER: Initial ACUITY: 1 day PAIN SCALE: Non-responsive LOCATION: cranial TECHNIQUE: Multiple contiguous axial images were obtained of the head. Using automated exposure control and adj ustment of the mA and/or kV according to patient size, radiation dose was kept as low as reasonably a chievable to obtain optimal diagnostic quality images. FINDINGS: CEREBRUM: The ventricles are normal for age. Stable bilateral cortical atrophy. Stable tiny old right basal ga nglia lacunar infarct. No evidence of midline shift, mass lesion, hemorrhage or acute infarction. No extra-axial fluid collections are seen. POSTERIOR FOSSA: The cerebellum and brainstem are intact. The 4th ventricle is midline. The cerebellopontine angle i s unremarkable. EXTRACRANIAL: The visualized portion of the orbits is intact. SKULL: The calvaria is intact. No evidence of skull fracture. No significant changes. CONCLUSION: 1. No acute intracranial hemorrhage. 2. Stable bilateral cortical atrophy without significant changes compared to the prior study. Beni Rudd MD on December 31, 2016 at 19:53 Board Certified Radiologist. This report was verified electronically.
--- NOTE | 2016-12-31 20:02 | RADRPT ---
EXAM DATE/TIME: 12/31/2016 19:32 [facility] COMPARISON: CT CERVICAL SPINE W/O CONTRAST, April 28, 2015, 18:45. INDICATIONS : Trauma; fall on tile floor. RADIATION DOSE: 22.00 CTDIvol (mGy) MEDICAL HISTORY : Hypertension. Carcinoma, prostate. SURGICAL HISTORY : None. ENCOUNTER: Initial ACUITY: 1 day PAIN SCALE: Non-responsive LOCATION: Bilateral neck TECHNIQUE: Volumetric scanning of the cervical spine was performed. Multiplanar reconstructions in the sagittal, coronal and oblique axial planes were performed. Using automated exposure control and adjustment o f the mA and/or kV according to patient size, radiation dose was kept as low as reasonably achievable to obtain optimal diagnostic quality images. FINDINGS: Today's exam is compared to the prior study from 2014. There is diffuse primary degenerative changes noted throughout the cervical spine. There is evidence of previous surgery with fusion from C5-T1. Th ere is been no change with the appearance of the cervical spine are fusion compared to the prior exam . No acute bony fracture is seen. There is disc degeneration with disc space narrowing at C3-4 and C4 -5. The hardware appears to be grossly intact and stable compared to the prior study. There is limite d visualization of the spinal canal due to metallic artifact. Compared to the prior exam no significa nt changes. CONCLUSION: Stable CT scan of the cervical spine compared to 2014. No acute bony fracture. Beni Rudd MD on December 31, 2016 at 19:57 Board Certified Radiologist. This report was verified electronically.
[2016-12-31 20:26] LABS: AUTOMATED NEUTROPHIL # 3.9 TH/MM3 (1.8-7.7); BASOPHIL % 0.5 % (0.0-2.0); EOSINOPHIL # 0.1 TH/MM3 (0-0.4); EOSINOPHIL % 1.3 % (0.0-4.0); HEMATOCRIT 35.3 % (39.0-51.0); HEMO FLAGS DIFF FINAL; LYMPH % 20.8 % (9.0-44.0); LYMPHOCYTE # 1.2 TH/MM3 (1.0-4.8); MEAN CELL VOLUME 97.8 FL (80.0-100.0); MEAN CORPUSCULAR HEMOGLOBIN 34.9 PG (27.0-34.0); MEAN CORPUSCULAR HGB CONC 35.7 % (32.0-36.0); MONO % 12.7 % (0.0-8.0); NEUT % 64.7 % (16.0-70.0); PLATELET COUNT 186 TH/MM3 (150-450); RED BLOOD COUNT 3.61 MIL/MM3 (4.50-5.90); RED CELL DISTRIBUTION WIDTH 13.3 % (11.6-17.2)
[2016-12-31 20:29] LABS: INTERNATIONAL NORMALIZED RATIO 1.1 RATIO
[2016-12-31 20:33] LABS: ANION GAP 10 MEQ/L (5-15)
--- NOTE | 2016-12-31 20:38 | RADRPT ---
EXAM DATE/TIME: 12/31/2016 19:59 [facility] COMPARISON: CHEST SINGLE AP, April 28, 2015, 18:44. INDICATIONS : Trauma; fall on tile floor. MEDICAL HISTORY : Hypertension. Carcinoma, prostate. SURGICAL HISTORY : None. ENCOUNTER: Initial ACUITY: 1 day PAIN SCORE: 0/10 LOCATION: Bilateral chest FINDINGS: A single view of the chest demonstrates some bibasilar atelectasis. Otherwise, lungs are clear. There are no pleural effusions or pulmonary edema. Heart size is mildly prominent but stable compared to t he prior study. The bony structures are stable.. CONCLUSION: Mild bibasilar atelectasis. Otherwise, no significant change compared to the prior exam. Beni Rudd MD on December 31, 2016 at 20:36 Board Certified Radiologist. This report was verified electronically.
[2016-12-31 20:39] LABS: ALKALINE PHOSPHATASE 78 U/L (45-117); ALT (GPT) 19 U/L (12-78); AST (GOT) 21 U/L (15-37); BICARBONATE 22.2 MEQ/L (21.0-32.0); BLOOD UREA NITROGEN 10 MG/DL (7-18); CHLORIDE 98 MEQ/L (98-107); GLOMERULAR FILTRATION RATE 63 ML/MIN (>89); POTASSIUM 3.9 MEQ/L (3.5-5.1); SODIUM (NA) 130 MEQ/L (136-145); TOTAL BILIRUBIN ADULT 0.6 MG/DL (0.2-1.0)
--- NOTE | 2016-12-31 21:18 | PD ---
HPI Chief Complaint: Fall Time Seen by Provider: 19:21 Travel History International Travel<30 days: No Contact w/Intl Traveler<30days: No Traveled to known affect area: No History of Present Illness HPI This 76-year-old man who presents to the emergency department after a fall. EMS reports that his states that she found him having fallen in the kitchen. Patient and the both state that he's been drinking heavily today , albeit her. They report that common for him. Since EMS found him is been agitated and somewhat belligerent. EMS reports that states that common for him when he drinks. He had an abrasion on the back of his head as well. There is a small amount of blood on the floor. Patient complains of headache. History Past Medical History Narrative Medical Diabetes No blood thinner Social History Alcohol Use: Yes (6 pk daily BEER) Tobacco Use: No (QUIT 25 YEARS AGO) Allergies-Medications (Allergen,Severity, Reaction): Coded Allergies: *MDRO Multi-Drug Resistant Organism (Verified Adverse Reaction, Unknown, ) 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 Reported Meds & Prescriptions Reported Meds & Active Scripts Active Reported Triamterene-Hydrochlorothiazide 37.5-25 Mg Cap 1 Cap PO DAILY Pantoprazole (Pantoprazole Sodium) 40 Mg Tab 40 Mg PO DAILY Metformin (Metformin HCl) 1,000 Mg Tab 1,000 Mg PO BIDPC With meals Lovastatin 40 Mg Tab 40 Mg PO DAILY Xalatan Opth Drops (Latanoprost) 0.005% Drops 1 Drop EACH EYE HS Glyburide 5 Mg Tab 5 Mg PO DAILY Take with meals at the same time each day Gabapentin 600 Mg Tab 600 Mg PO BID Folate (Folic Acid) 1 Mg Tab 1 Mg PO DAILY Plavix (Clopidogrel Bisulfate) 75 Mg Tab 75 Mg PO DAILY Aspirin 81 Mg Tabdr 81 Mg PO DAILY Review of Systems Except as stated in HPI: all other systems reviewed are Neg Physical Exam Narrative GENERAL: 76-year-old man, on a scoop stretcher, c-collar in place, restrained. SKIN: Focused skin assessment warm/dry. HEAD: Normocephalic. Got an abrasion to the back of his head. EYES: Pupils equal and round. No scleral icterus. No injection or drainage. ENT: No nasal bleeding or discharge. Mucous membranes pink and moist. NECK: Trachea midline. C-collar in place. No midline tenderness. CARDIOVASCULAR: Regular rate and rhythm. No murmur appreciated. RESPIRATORY: No accessory muscle use. Clear to auscultation. Breath sounds equal bilaterally. GASTROINTESTINAL: Abdomen soft, non-tender, nondistended. Hepatic and splenic margins not palpable. MUSCULOSKELETAL: No obvious deformities. No edema. NEUROLOGICAL: Awake and alert. Agitated. Will answer some questions but not others. Moves all extremities. Speech is a little bit slurred. PSYCHIATRIC: Agitated and belligerent. Data Data Last Documented VS Vital Signs Date Time Temp Pulse Resp B/P Pulse Ox O2 Delivery O2 Flow Rate FiO2 12/31/16 22:22 72 18 135/88 99 Room Air 12/31/16 19:23 97.9 Orders Electrocardiogram (12/31/16 19:21) Complete Blood Count With Diff (12/31/16 19:21) Comprehensive Metabolic Panel (12/31/16 19:21) Prothrombin Time / Inr (Pt) (12/31/16 19:21) Act Partial Throm Time (Ptt) (12/31/16 19:21) Troponin I (12/31/16 19:21) Lactic Acid Sepsis Protocol (12/31/16 19:21) Chest, Single Ap (12/31/16 19:21) Ct Brain W/O Iv Contrast(Rout) (12/31/16 19:21) Blood Glucose (12/31/16 19:21) Ecg Monitoring (12/31/16 19:21) Iv Access Insert/Monitor (12/31/16 19:21) Oximetry (12/31/16 19:21) Sodium Chloride 0.9% Flush (Ns Flush) (12/31/16 19:30) Sodium Chlor 0.9% 1000 Ml Inj (Ns 1000 M (12/31/16 19:21) Drug Screen, Random Urine (12/31/16 19:21) Alcohol (Ethanol) (12/31/16 19:21) Ct Cerv Spine W/O Contrast (12/31/16 ) Lorazepam Inj (Ativan Inj) (12/31/16 19:30) Labs Laboratory Tests Test 12/31/16 20:00 White Blood Count 6.0 TH/MM3 Red Blood Count 3.61 MIL/MM3 Hemoglobin 12.6 GM/DL Hematocrit 35.3 % Mean Corpuscular Volume 97.8 FL Mean Corpuscular Hemoglobin 34.9 PG Mean Corpuscular Hemoglobin 35.7 % Concent Red Cell Distribution Width 13.3 % Platelet Count 186 TH/MM3 Mean Platelet Volume 7.9 FL Neutrophils (%) (Auto) 64.7 % Lymphocytes (%) (Auto) 20.8 % Monocytes (%) (Auto) 12.7 % Eosinophils (%) (Auto) 1.3 % Basophils (%) (Auto) 0.5 % Neutrophils # (Auto) 3.9 TH/MM3 Lymphocytes # (Auto) 1.2 TH/MM3 Monocytes # (Auto) 0.8 TH/MM3 Eosinophils # (Auto) 0.1 TH/MM3 Basophils # (Auto) 0.0 TH/MM3 CBC Comment DIFF FINAL Differential Comment Prothrombin Time 12.0 SEC Prothromb Time International 1.1 RATIO Ratio Activated Partial 27.0 SEC Thromboplast Time Sodium Level 130 MEQ/L Potassium Level 3.9 MEQ/L Chloride Level 98 MEQ/L Carbon Dioxide Level 22.2 MEQ/L Anion Gap 10 MEQ/L Blood Urea Nitrogen 10 MG/DL Creatinine 1.13 MG/DL Estimat Glomerular Filtration 63 ML/MIN Rate Random Glucose 156 MG/DL Lactic Acid Level 2.5 mmol/L Calcium Level 8.4 MG/DL Total Bilirubin 0.6 MG/DL Aspartate Amino Transf 21 U/L (AST/SGOT) Alanine Aminotransferase 19 U/L (ALT/SGPT) Alkaline Phosphatase 78 U/L Troponin I LESS THAN 0.02 NG/ML Total Protein 7.0 GM/DL Albumin 2.9 GM/DL Ethyl Alcohol Level 186 MG/DL [facility] Medical Decision Making Medical Screen Exam Complete: Yes Emergency Medical Condition: Yes Interpretation(s) Head CT: No acute intracranial hemorrhage. Stable bilateral cortical atrophy without significant changes compared to prior study. C-spine CT: Stable CT scan of the cervical spine D 2012. No acute bony fracture. Chest x-ray: Negative. LABS: CBC remarkable for mild anemia. CMP generally unremarkable Lactate 2.5 Troponin negative Alcohol 186 Differential Diagnosis Head injury, concussion, bleed, intoxication, other Narrative Course Medical decision making 76-year-old male presents emergency Department intoxicated, belligerent, possible head injury. He required IV benzodiazepine for sedation to repair obtain head CT. This was negative. Labs show elevated alcohol. He is a small abrasion with maybe a small metal laceration to posterior occiput. He may need a couple bernardo. Otherwise patient will be discharged when sober. Diagnosis Primary Impression: Alcohol intoxication Additional Impressions: Fall Scalp laceration Additional Instructions: Avoid excessive alcohol intake Follow-up with your doctor in the next 2-4 days. Return to the emergency department for any new or worsening symptoms. Keep wound clean and dry. Do not wet for 24 hours. After 24 hours and clean the wound gently with soap and water. Gently clean wound twice daily with soap and water. Do not soak wound. No swimming, hot tubs, or allowing wound to get too wet. Apply antibiotic ointment to wound twice daily. Return to the emergency department for any worsening pain, swelling, redness, significant bleeding, or any other new or worsening symptoms. Follow-up with your primary doctor or return to the emergency department here for staple removal in 7 days. Med/Other Pt SpecificInfo: No Change to Meds Disposition: 01 DISCHARGE HOME Condition: Stable Mathew Diallo MD Dec 31, 2016 21:18
[2016-12-31 22:11] LABS: LACTIC ACID GHOST NOT REPORTABLE
[2016-12-31 22:22] VITALS: BP 135/88; PULSE 72; RESP 18; O2SAT 99
--- NOTE | 2016-12-31 22:23 | PD ---
Physical Exam Time Seen by Provider: 22:22 Narrative I was asked to perform a laceration repair to this patient's scalp. For further details regarding the patient's visibly see the physician's documentation. Data Data Last Documented VS Vital Signs Date Time Temp Pulse Resp B/P Pulse Ox O2 Delivery O2 Flow Rate FiO2 12/31/16 19:43 75 18 178/74 98 Room Air 12/31/16 19:23 97.9 Orders Electrocardiogram (12/31/16 19:21) Complete Blood Count With Diff (12/31/16 19:21) Comprehensive Metabolic Panel (12/31/16 19:21) Prothrombin Time / Inr (Pt) (12/31/16 19:21) Act Partial Throm Time (Ptt) (12/31/16 19:21) Troponin I (12/31/16 19:21) Lactic Acid Sepsis Protocol (12/31/16 19:21) Chest, Single Ap (12/31/16 19:21) Ct Brain W/O Iv Contrast(Rout) (12/31/16 19:21) Blood Glucose (12/31/16 19:21) Ecg Monitoring (12/31/16 19:21) Iv Access Insert/Monitor (12/31/16 19:21) Oximetry (12/31/16 19:21) Sodium Chloride 0.9% Flush (Ns Flush) (12/31/16 19:30) Sodium Chlor 0.9% 1000 Ml Inj (Ns 1000 M (12/31/16 19:21) Drug Screen, Random Urine (12/31/16 19:21) Alcohol (Ethanol) (12/31/16 19:21) Ct Cerv Spine W/O Contrast (12/31/16 ) Lorazepam Inj (Ativan Inj) (12/31/16 19:30) Labs Laboratory Tests Test 12/31/16 20:00 White Blood Count 6.0 TH/MM3 Red Blood Count 3.61 MIL/MM3 Hemoglobin 12.6 GM/DL Hematocrit 35.3 % Mean Corpuscular Volume 97.8 FL Mean Corpuscular Hemoglobin 34.9 PG Mean Corpuscular Hemoglobin 35.7 % Concent Red Cell Distribution Width 13.3 % Platelet Count 186 TH/MM3 Mean Platelet Volume 7.9 FL Neutrophils (%) (Auto) 64.7 % Lymphocytes (%) (Auto) 20.8 % Monocytes (%) (Auto) 12.7 % Eosinophils (%) (Auto) 1.3 % Basophils (%) (Auto) 0.5 % Neutrophils # (Auto) 3.9 TH/MM3 Lymphocytes # (Auto) 1.2 TH/MM3 Monocytes # (Auto) 0.8 TH/MM3 Eosinophils # (Auto) 0.1 TH/MM3 Basophils # (Auto) 0.0 TH/MM3 CBC Comment DIFF FINAL Differential Comment Prothrombin Time 12.0 SEC Prothromb Time International 1.1 RATIO Ratio Activated Partial 27.0 SEC Thromboplast Time Sodium Level 130 MEQ/L Potassium Level 3.9 MEQ/L Chloride Level 98 MEQ/L Carbon Dioxide Level 22.2 MEQ/L Anion Gap 10 MEQ/L Blood Urea Nitrogen 10 MG/DL Creatinine 1.13 MG/DL Estimat Glomerular Filtration 63 ML/MIN Rate Random Glucose 156 MG/DL Lactic Acid Level 2.5 mmol/L Calcium Level 8.4 MG/DL Total Bilirubin 0.6 MG/DL Aspartate Amino Transf 21 U/L (AST/SGOT) Alanine Aminotransferase 19 U/L (ALT/SGPT) Alkaline Phosphatase 78 U/L Troponin I LESS THAN 0.02 NG/ML Total Protein 7.0 GM/DL Albumin 2.9 GM/DL Ethyl Alcohol Level 186 MG/DL MDM Supervised Visit with JOY: No Procedures Procedure Narrative LACERATION LOCATION: Posterior scalp LENGTH: Less than 1 cm NUMBER OF STITCHES/BERNARDO: 2 bernardo REPAIR: The area of the laceration was prepped with Betadine and sterilely draped. The wound was copiously irrigated and explored without evidence of foreign body, tendon injury or neurovascular injury. The wound was closed using bernardo. This was a single layer repair. A sterile dressing was applied. The patient was advised to keep the dressing clean and dry. Patient tolerated the procedure well. Diagnosis Primary Impression: Alcohol intoxication Additional Impressions: Scalp laceration Fall Additional Instruction: Avoid excessive alcohol intake Follow-up with your doctor in the next 2-4 days. Return to the emergency department for any new or worsening symptoms. Disposition: 01 DISCHARGE HOME Condition: Stable Laurie Pena Dec 31, 2016 22:23
[2016-12-31] MEDS ORDERED: LORazepam 2 MG/ML VIAL IM ONE (22:45)
[2017-01-01 02:06] VITALS: BP 129/72; PULSE 69; RESP 18; TEMP 98.4; O2SAT 96
[2017-01-01 06:15] VITALS: BP 157/72; PULSE 70; RESP 18; TEMP 98.1; O2SAT 100
--- NOTE | 2017-01-01 10:22 | EKG ---
Date Performed: 12/31/2016 Time Performed: 19:22:42 PTAGE: 76 years EKG: ECTOPIC ATRIAL RHYTHM WITH FIRST DEGREE AV BLOCK MODERATE INTRAVENTRICULAR CONDUCTION DELAY ABNORMAL ECG Compared to prior tracing no significant change PREVIOUS TRACING : 04/28/2015 18.07 DOCTOR: Bill Sweeney Interpretating Date/Time 01/01/2017 10:21:49
== END 2017-01-01 10:41 | disposition home or self-care (01) ==
LOC: NEPC 19:20 → NEPD 01-01 10:41
DX: S01.01XA Laceration without foreign body of scalp, initial encounter (principal); F10.129 Alcohol abuse with intoxication, unspecified; R94.31 Abnormal electrocardiogram [ECG] [EKG]; E11.9 Type 2 diabetes mellitus without complications; Y90.6 Blood alcohol level of 120-199 mg/100 ml; W19.XXXA Unspecified fall, initial encounter; Y92.89 Other specified places as the place of occurrence of the external cause; Z79.82 Long term (current) use of aspirin; Z79.02 Long term (current) use of antithrombotics/antiplatelets; Z79.899 Other long term (current) drug therapy; Z79.84 Long term (current) use of oral hypoglycemic drugs
CPT/HCPCS: 12001; 70450; 71010; 72125; 80053; 80307; 83605; 84484; 85025; 85610; 85730; 93005; 96361; 96372; 96374; 99285; J2060; J7030

== ENCOUNTER 2017-03-18 16:39 | Emergency (ER) | payer OTHER ==
[~2017-03-18] VITALS: Ht 182.9 cm; Wt 86.0 kg
[~2017-03-18 16:39] MED LIST changes: -BACT800T5 PO; -CLIN1CAP6 PO
[2017-03-18 16:55] VITALS: BP 150/85; PULSE 73; RESP 15; TEMP 98.5; O2SAT 100
[2017-03-18] MEDS ORDERED: CLIN1CAP6 PO (17:03)
[2017-03-18] MEDS ORDERED: LOSA100T PO (17:03)
--- NOTE | 2017-03-18 17:28 | PD ---
HPI Chief Complaint: Altered Mental Status Time Seen by Provider: 17:17 Travel History International Travel<30 days: No Contact w/Intl Traveler<30days: No Traveled to known affect area: No History of Present Illness HPI 76yo M with DM and alcohol abuse was brought here after he was found with no shoes and no shirt, on his way to bar. Pt is not collado acted. I spoke to pt's Delilah Reeder at [phone] and she said that her has not been himself since yesterday. States he appeared dazed and was getting up and then sitting down yesterday, aimlessly walking in his house. Today, he took the car out with no shoes or shirt and drove to a bar. Pt was wearing a hat and pants only. She thinks that he has alzheimers and has been forgetful for the last year. Pt had surgery in left foot a few months ago and will not follow up with Dr. King. Pt denies any complaints. There is some dry blood on feet but no other signs of trauma. PFSH Past Medical History Hx Anticoagulant Therapy: Yes (asa 81mg) Cancer: Yes (PROSTATE) Cardiovascular Problems: Yes (htn, ) High Cholesterol: Yes Congestive Heart Failure: No Dementia: Yes Diabetes: Yes Patient Takes Glucophage: Yes Diminished Hearing: No Endocrine: Yes Gastrointestinal Disorders: Yes GERD: Yes Genitourinary: Yes Hypertension: Yes Implanted Vascular Access Dvce: Yes Musculoskeletal: Yes Neurologic: Yes (NEUROPATHY) Psychiatric: No Respiratory: Yes (copd) Tetanus Vaccination: Unknown Past Surgical History Abdominal Surgery: Yes (hernia repair, ) Body Medical Devices: FUSED NECK, METAL PLATES IN BACK/NECK Cholecystectomy: Yes Joint Replacement: Yes (rotator cuff repair) Other Surgery: Yes Social History Alcohol Use: Yes (6 pk daily BEER) Tobacco Use: No (QUIT 25 YEARS AGO) Substance Use: No Allergies-Medications (Allergen,Severity, Reaction): Coded Allergies: *MDRO Multi-Drug Resistant Organism (Verified Adverse Reaction, Unknown, ) 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 Reported Meds & Prescriptions Reported Meds & Active Scripts Active Cipro (Ciprofloxacin HCl) 500 Mg Tab 500 Mg PO BID 10 Days Cleocin (Clindamycin HCl) 150 Mg Cap 150 Mg PO Q6H 10 Days Reported Clindamycin (Clindamycin HCl) 300 Mg Cap 600 Mg PO Q8H Losartan (Losartan Potassium) 100 Mg Tab 100 Mg PO DAILY Triamterene-Hydrochlorothiazide 37.5-25 Mg Cap 1 Cap PO DAILY Pantoprazole (Pantoprazole Sodium) 40 Mg Tab 40 Mg PO DAILY Metformin (Metformin HCl) 1,000 Mg Tab 1,000 Mg PO BIDPC With meals Lovastatin 40 Mg Tab 40 Mg PO DAILY Xalatan Opth Drops (Latanoprost) 0.005% Drops 1 Drop EACH EYE HS Glyburide 5 Mg Tab 5 Mg PO DAILY Take with meals at the same time each day Gabapentin 600 Mg Tab 600 Mg PO BID Plavix (Clopidogrel Bisulfate) 75 Mg Tab 75 Mg PO DAILY Review of Systems Except as stated in HPI: all other systems reviewed are Neg Physical Exam Narrative GENERAL: 76yo M not in distress. SKIN: Focused skin assessment warm/dry. HEAD: Atraumatic. Normocephalic. EYES: Pupils equal and round. No scleral icterus. No injection or drainage. ENT: No nasal bleeding or discharge. Mucous membranes pink and moist. NECK: Trachea midline. No JVD. CARDIOVASCULAR: Regular rate and rhythm. No murmur appreciated. RESPIRATORY: No accessory muscle use. Clear to auscultation. Breath sounds equal bilaterally. GASTROINTESTINAL: Abdomen soft, non-tender, nondistended. Hepatic and splenic margins not palpable. MUSCULOSKELETAL: LLE: +Pitting edema in left foot and tib/fib. +Ulcer in plantar surface of left metatarsal. No drainage. Right foot: Small early ulcer in plantar aspect of right fifth metatarsal. NEUROLOGICAL: Awake and alert. No obvious cranial nerve deficits. Motor grossly within normal limits. Normal speech. AAOx2. Data Data Last Documented VS Vital Signs Date Time Temp Pulse Resp B/P Pulse Ox O2 Delivery O2 Flow Rate FiO2 03/18/17 20:38 75 16 128/75 99 Room Air 03/18/17 16:55 98.5 Orders Complete Blood Count With Diff (03/18/17 17:18) Basic Metabolic Panel (Bmp) (03/18/17 17:18) Foot, Limited (2vws) (03/18/17 ) Foot, Limited (2vws) (03/18/17 ) Us Leg Venous Doppler (03/18/17 ) Ct Brain W/O Iv Contrast(Rout) (03/18/17 ) Urinalysis - C+S If Indicated (03/18/17 17:25) Diet Regular Basic (03/18/17 Dinner) Psych Screen (03/18/17 18:43) Clindamycin Inj (Cleocin Inj) (03/18/17 19:45) Ciprofloxacin (Cipro) (03/18/17 19:45) Labs Laboratory Tests Test 03/18/17 17:30 White Blood Count 6.9 TH/MM3 Red Blood Count 3.85 MIL/MM3 Hemoglobin 12.8 GM/DL Hematocrit 37.0 % Mean Corpuscular Volume 96.1 FL Mean Corpuscular Hemoglobin 33.2 PG Mean Corpuscular Hemoglobin 34.5 % Concent Red Cell Distribution Width 12.6 % Platelet Count 183 TH/MM3 Mean Platelet Volume 7.7 FL Neutrophils (%) (Auto) 72.0 % Lymphocytes (%) (Auto) 14.5 % Monocytes (%) (Auto) 10.4 % Eosinophils (%) (Auto) 2.5 % Basophils (%) (Auto) 0.6 % Neutrophils # (Auto) 4.9 TH/MM3 Lymphocytes # (Auto) 1.0 TH/MM3 Monocytes # (Auto) 0.7 TH/MM3 Eosinophils # (Auto) 0.2 TH/MM3 Basophils # (Auto) 0.0 TH/MM3 CBC Comment DIFF FINAL Differential Comment Urine Color YELLOW Urine Turbidity CLEAR Urine pH 7.0 Urine Specific [place] 1.014 Urine Protein 100 mg/dL Urine Glucose (UA) 1000 mg/dL Urine Ketones NEG mg/dL Urine Occult Blood NEG Urine Nitrite NEG Urine Bilirubin NEG Urine Urobilinogen LESS THAN 2.0 MG/DL Urine Leukocyte Esterase NEG Urine RBC 1 /hpf Urine WBC LESS THAN 1 /hpf Microscopic Urinalysis Comment CULT NOT INDICATED Sodium Level 136 MEQ/L Potassium Level 3.7 MEQ/L Chloride Level 99 MEQ/L Carbon Dioxide Level 29.5 MEQ/L Anion Gap 8 MEQ/L Blood Urea Nitrogen 12 MG/DL Creatinine 0.99 MG/DL Estimat Glomerular Filtration 73 ML/MIN Rate Random Glucose 231 MG/DL Calcium Level 8.7 MG/DL MDM Medical Decision Making Medical Screen Exam Complete: Yes Emergency Medical Condition: Yes Differential Diagnosis Dementia vs. delirium vs. UTI vs. electrolyte abnormality vs. left cellulitis vs. DVT Narrative Course 76yo M who according to has not been himself since yesterday. states he went out with no shoes or shirt on today. Pt lives with his and she states that she is 73yo and needs cataract surgery and cant drive at night so wont be coming today. States he has been refusing to follow up with podiatry after surgery. States she has no idea why he is on clindamycin. Labs reviewed , no leukocytosis. H/H 12.8/37. Glucose 231. No increased anion gap. UA negative. Xray left foot: soft tissue swelling with possible ulcer in first digit. Xray right foot showed chronic bony changes. CT brain showed no acute abnormality. I bakered act him because I feel he cannot take care of himself. Psych screen placed. Sign out to next team to follow US left lower ext and medically clear if negative. Diagnosis Primary Impression: Dementia Qualified Code: F03.91 - Dementia with behavioral disturbance, unspecified dementia type Scripts Ciprofloxacin (Cipro)500 Mg [id number] Mg PO BID 10 Days Ref 0 Prov:Francis Jordan MD 03/18/17 Clindamycin (Cleocin)150 Mg [id number] Mg PO Q6H 10 Days Ref 0 Prov:Francis Jordan MD 03/18/17 Danae Branch DO Mar 18, 2017 17:28
[2017-03-18 17:47] LABS: AUTOMATED NEUTROPHIL # 4.9 TH/MM3 (1.8-7.7); BASOPHIL % 0.6 % (0.0-2.0); EOSINOPHIL # 0.2 TH/MM3 (0-0.4); EOSINOPHIL % 2.5 % (0.0-4.0); HEMO FLAGS DIFF FINAL; LYMPH % 14.5 % (9.0-44.0); MEAN CELL VOLUME 96.1 FL (80.0-100.0); MEAN CORPUSCULAR HEMOGLOBIN 33.2 PG (27.0-34.0); MEAN CORPUSCULAR HGB CONC 34.5 % (32.0-36.0); MONO % 10.4 % (0.0-8.0); PLATELET COUNT 183 TH/MM3 (150-450); RED BLOOD COUNT 3.85 MIL/MM3 (4.50-5.90); RED CELL DISTRIBUTION WIDTH 12.6 % (11.6-17.2); WHITE BLOOD COUNT 6.9 TH/MM3 (4.0-11.0)
--- NOTE | 2017-03-18 17:48 | RADRPT ---
EXAM DATE/TIME: 03/18/2017 17:35 [facility] COMPARISON: No previous studies available for comparison. INDICATIONS : Left foot pain and swelling. MEDICAL HISTORY : Carcinoma, prostate. Diabetes mellitus type 2. Hypertension. Renal failure.GERD. COPD. SURGICAL HISTORY : Rotator cuff, left. Prostatectomy. Fusion, cervical. Hernia. Lumbar laminectomy. ENCOUNTER: Initial ACUITY: 2 months PAIN SCORE: 10/10 LOCATION: Left foot FINDINGS: Two view examination of the left foot demonstrates soft tissue swelling around the base of the first digit and the dorsal aspect of the foot. There appears be a small amount of air seen in the superfici al medial plantar soft tissues at the level the first MTP joint region. In addition, there is questio nable deformity at the proximal aspect of the second middle phalanx. Some degree of fracture in this region needs to be considered. There some chronic hypertrophic change seen adjacent to the base of t he fifth metatarsal. CONCLUSION: 1. Soft tissue swelling centered at the first digit with a possible ulcer. 2. Possible fracture deformity at the proximal aspect of the second middle phalanx. Librado Gomez MD on March 18, 2017 at 17:41 Board Certified Radiologist. This report was verified electronically.
--- NOTE | 2017-03-18 17:50 | RADRPT ---
EXAM DATE/TIME: 03/18/2017 17:31 [facility] COMPARISON: No previous studies available for comparison. INDICATIONS : Right foot pain. MEDICAL HISTORY : Carcinoma, prostate. Diabetes mellitus type 2. Hypertension. Renal failure. GERD. COPD. SURGICAL HISTORY : Rotator cuff, left. Prostatectomy. Fusion, cervical. Hernia. Lumbar laminectomy. ENCOUNTER: Initial ACUITY: 2 months PAIN SCORE: 8/10 LOCATION: Right foot FINDINGS: No fracture is seen. There is absence of the second distal phalanx. There some soft tissue swelling a t the distal aspect of the second digit. There is chronic periosteal reaction at the distal aspect of the third metatarsal likely from prior fracture. No areas of bony destruction are seen. CONCLUSION: Chronic bony changes. An acute bony abnormality is not seen. Librado Gomez MD on March 18, 2017 at 17:46 Board Certified Radiologist. This report was verified electronically.
--- NOTE | 2017-03-18 17:52 | RADRPT ---
EXAM DATE/TIME: 03/18/2017 17:45 [facility] COMPARISON: CT BRAIN W/O CONTRAST, December 31, 2016, 19:32. INDICATIONS : Altered mental status. RADIATION DOSE: 44.46 CTDIvol (mGy) MEDICAL HISTORY : Dementia. Cardiovascular disease Hypertension. SURGICAL HISTORY : Cholecystectomy. ENCOUNTER: Initial ACUITY: 1 day PAIN SCALE: 0/10 LOCATION: cranial TECHNIQUE: Multiple contiguous axial images were obtained of the head. Using automated exposure control and adj ustment of the mA and/or kV according to patient size, radiation dose was kept as low as reasonably a chievable to obtain optimal diagnostic quality images. DICOM format image data is available electro nically for review and comparison. FINDINGS: CEREBRUM: The ventricles and cortical sulci are widened. No evidence of midline shift, mass lesion, hemorrhage or acute infarction. No extra-axial fluid collections are seen. POSTERIOR FOSSA: The cerebellum and brainstem are intact. The 4th ventricle is midline. The cerebellopontine angle i s unremarkable. EXTRACRANIAL: The visualized portion of the orbits is intact. SKULL: The calvaria is intact. No evidence of skull fracture. CONCLUSION: 1. No acute abnormality is seen. 2. Generalized atrophy. Librado Gomez MD on March 18, 2017 at 17:49 Board Certified Radiologist. This report was verified electronically.
[2017-03-18 17:59] LABS: BLOOD, URINE NEG (NEG); COMMENT (UR) CULT NOT INDICATED; CULTURE IF INDICATED CULT NOT INDICATED; GLUCOSE,URINE 1000 mg/dL (NEG); KETONE, URINE NEG (NEG); NITRITE,URINE NEG (NEG); URINE COLOR YELLOW (YELLW/STRAW)
[2017-03-18 18:09] LABS: BICARBONATE 29.5 MEQ/L (21.0-32.0); POTASSIUM 3.7 MEQ/L (3.5-5.1)
--- NOTE | 2017-03-18 19:09 | PD ---
Physical Exam Date Seen by Provider: Mar 18, 2017 Time Seen by Provider: 19:08 Narrative The patient is a 76-year-old male was initially evaluated by the previous physician, Dr. Branch. The patient was placed under a Silva act. The patient was signed out ultrasound of the leg pending, if negative, the patient will be medically cleared to be evaluated by psychiatry. Data Data Last Documented VS Vital Signs Date Time Temp Pulse Resp B/P Pulse Ox O2 Delivery O2 Flow Rate FiO2 03/18/17 16:55 98.5 73 15 150/85 100 Room Air Orders Complete Blood Count With Diff (03/18/17 17:18) Basic Metabolic Panel (Bmp) (03/18/17 17:18) Foot, Limited (2vws) (03/18/17 ) Foot, Limited (2vws) (03/18/17 ) Us Leg Venous Doppler (03/18/17 ) Ct Brain W/O Iv Contrast(Rout) (03/18/17 ) Urinalysis - C+S If Indicated (03/18/17 17:25) Diet Regular Basic (03/18/17 Dinner) Psych Screen (03/18/17 18:43) Labs Laboratory Tests Test 03/18/17 17:30 White Blood Count 6.9 TH/MM3 Red Blood Count 3.85 MIL/MM3 Hemoglobin 12.8 GM/DL Hematocrit 37.0 % Mean Corpuscular Volume 96.1 FL Mean Corpuscular Hemoglobin 33.2 PG Mean Corpuscular Hemoglobin 34.5 % Concent Red Cell Distribution Width 12.6 % Platelet Count 183 TH/MM3 Mean Platelet Volume 7.7 FL Neutrophils (%) (Auto) 72.0 % Lymphocytes (%) (Auto) 14.5 % Monocytes (%) (Auto) 10.4 % Eosinophils (%) (Auto) 2.5 % Basophils (%) (Auto) 0.6 % Neutrophils # (Auto) 4.9 TH/MM3 Lymphocytes # (Auto) 1.0 TH/MM3 Monocytes # (Auto) 0.7 TH/MM3 Eosinophils # (Auto) 0.2 TH/MM3 Basophils # (Auto) 0.0 TH/MM3 CBC Comment DIFF FINAL Differential Comment Urine Color YELLOW Urine Turbidity CLEAR Urine pH 7.0 Urine Specific [place] 1.014 Urine Protein 100 mg/dL Urine Glucose (UA) 1000 mg/dL Urine Ketones NEG mg/dL Urine Occult Blood NEG Urine Nitrite NEG Urine Bilirubin NEG Urine Urobilinogen LESS THAN 2.0 MG/DL Urine Leukocyte Esterase NEG Urine RBC 1 /hpf Urine WBC LESS THAN 1 /hpf Microscopic Urinalysis Comment CULT NOT INDICATED Sodium Level 136 MEQ/L Potassium Level 3.7 MEQ/L Chloride Level 99 MEQ/L Carbon Dioxide Level 29.5 MEQ/L Anion Gap 8 MEQ/L Blood Urea Nitrogen 12 MG/DL Creatinine 0.99 MG/DL Estimat Glomerular Filtration 73 ML/MIN Rate Random Glucose 231 MG/DL Calcium Level 8.7 MG/DL [facility] Medical Record Reviewed: Yes Supervised Visit with JOY: No Interpretation(s) Laboratory Tests Test 03/18/17 17:30 White Blood Count 6.9 TH/MM3 Red Blood Count 3.85 MIL/MM3 Hemoglobin 12.8 GM/DL Hematocrit 37.0 % Mean Corpuscular Volume 96.1 FL Mean Corpuscular Hemoglobin 33.2 PG Mean Corpuscular Hemoglobin 34.5 % Concent Red Cell Distribution Width 12.6 % Platelet Count 183 TH/MM3 Mean Platelet Volume 7.7 FL Neutrophils (%) (Auto) 72.0 % Lymphocytes (%) (Auto) 14.5 % Monocytes (%) (Auto) 10.4 % Eosinophils (%) (Auto) 2.5 % Basophils (%) (Auto) 0.6 % Neutrophils # (Auto) 4.9 TH/MM3 Lymphocytes # (Auto) 1.0 TH/MM3 Monocytes # (Auto) 0.7 TH/MM3 Eosinophils # (Auto) 0.2 TH/MM3 Basophils # (Auto) 0.0 TH/MM3 CBC Comment DIFF FINAL Differential Comment Urine Color YELLOW Urine Turbidity CLEAR Urine pH 7.0 Urine Specific [place] 1.014 Urine Protein 100 mg/dL Urine Glucose (UA) 1000 mg/dL Urine Ketones NEG mg/dL Urine Occult Blood NEG Urine Nitrite NEG Urine Bilirubin NEG Urine Urobilinogen LESS THAN 2.0 MG/DL Urine Leukocyte Esterase NEG Urine RBC 1 /hpf Urine WBC LESS THAN 1 /hpf Microscopic Urinalysis Comment CULT NOT INDICATED Sodium Level 136 MEQ/L Potassium Level 3.7 MEQ/L Chloride Level 99 MEQ/L Carbon Dioxide Level 29.5 MEQ/L Anion Gap 8 MEQ/L Blood Urea Nitrogen 12 MG/DL Creatinine 0.99 MG/DL Estimat Glomerular Filtration 73 ML/MIN Rate Random Glucose 231 MG/DL Calcium Level 8.7 MG/DL Last Impressions Head CT 03/18/17 0000 Signed Impressions: Service Date/Time: Saturday, March 18, 2017 17:45 - CONCLUSION: 1. No acute abnormality is seen. 2. Generalized atrophy. Librado Gomez MD Foot X-Ray 03/18/17 0000 Signed Impressions: Service Date/Time: Saturday, March 18, 2017 17:31 - CONCLUSION: Chronic bony changes. An acute bony abnormality is not seen. Librado Gomez MD Foot X-Ray 03/18/17 0000 Signed Impressions: Service Date/Time: Saturday, March 18, 2017 17:35 - CONCLUSION: 1. Soft tissue swelling centered at the first digit with a possible ulcer. 2. Possible fracture deformity at the proximal aspect of the second middle phalanx. Librado Gomez MD Ultrasound is negative for DVT, does reveal prominent left inguinal lymph node. Differential Diagnosis Differential diagnosis includes delirium, dementia, cellulitis, DVT, hyponatremia, chronic alcohol abuse, inability to care for self. Narrative Course Patient was initially evaluated by the previous physician, Dr. Branch. Please refer to the initial history, physical, diagnostic evaluation, and treatment modality plan. Patient was signed out at 7 PM with ultrasound pending. CT the brain was negative. X-rays reveal chronic changes. Laboratory evaluation reveals mild hyperglycemia and glucosuria, patient has known history of diabetes. If the ultrasound is negative patient was medically cleared to be evaluated by psychiatry. The patient's white count is normal, however, the patient is a diabetic with a full-term. Therefore, was administered Cipro and Cleocin. Ultrasound reveals left inguinal lymph node, otherwise negative for DVT. White count is normal. The patient is medically clear to be evaluated by psychiatry. Diagnosis Primary Impression: Cellulitis of foot, left Med/Other Pt SpecificInfo: Prescription(s) given Scripts Ciprofloxacin (Cipro)500 Mg [id number] Mg PO BID 10 Days Ref 0 Prov:Francis Jordan MD 03/18/17 Clindamycin (Cleocin)150 Mg [id number] Mg PO Q6H 10 Days Ref 0 Prov:Francis Jordan MD 03/18/17 Condition: Stable Francis Jordan MD Mar 18, 2017 19:09
--- NOTE | 2017-03-18 19:34 | RADRPT ---
EXAM DATE/TIME: 03/18/2017 19:04 [facility] COMPARISON: No previous studies available for comparison. INDICATIONS : Left leg swelling. MEDICAL HISTORY : Hypertension. Hypercholesterolemia. Gastroesophageal reflux disease. Prostate cancer. Neuropathy. Dementia. COPD. SURGICAL HISTORY : Cholecystectomy. Rotator cuff repair. Laminectomy, Bilateral feet and elbow surgeries. ENCOUNTER: Initial ACUITY: 3 days PAIN SCORE: 0/10 LOCATION: Left leg. TECHNIQUE: Venous ultrasound of the leg was performed from the inguinal ligament to the proximal calf. Real-[place] e, color Doppler and spectral tracing, compression and augmentation techniques were used. FINDINGS: There is normal compressibility of the deep venous system from the inguinal region to the proximal ca lf. No echogenic clot is seen in the lumen of the common femoral, femoral, popliteal, and posterior tibial veins. There is a normal response of the venous system to proximal and distal augmentation an d respiration. Prominent left groin lymph node measuring 4.6 x 1.8 x 1.2 cm which is nonspecific. CONCLUSION: 1. No evidence of deep venous thrombosis within the left lower extremity. 2. Prominent left groin lymph node which is nonspecific and measures 4.6 x 1.8 x 1.2 cm. Roosevelt May MD on March 18, 2017 at 19:31 Board Certified Radiologist. This report was verified electronically.
[2017-03-18] MEDS ORDERED: CLIN150 PO (19:42)
[2017-03-18] MEDS ORDERED: CIPR-9 PO (19:42)
[2017-03-18] MEDS ORDERED: CIPROFLOXACIN 500 MG TAB PO ONE (19:45)
[2017-03-18] MEDS ORDERED: CLINDAMYCIN INJ 600 MG in SODIUM CHLORIDE 0.9% INJ 100 ML IV ONE (19:45)
[2017-03-18 20:38] VITALS: BP 128/75; PULSE 75; RESP 16; O2SAT 99
[2017-03-18] MEDS ORDERED: LORazepam 1 MG TAB PO PRN (22:45)
[2017-03-18] MEDS ORDERED: ONDANSETRON HCL 4 MG/2 ML VIAL IV PUSH PRN (22:45)
[2017-03-18] MEDS ORDERED: RESP: ALBUTEROL 2.5 MG/3 ML NEB (PRN) NEB (22:45)
[2017-03-18] MEDS ORDERED: LORazepam 2 MG TAB PO PRN (22:45)
[2017-03-18] MEDS ORDERED: ACETAMINOPHEN 325 MG TAB PO PRN (22:45)
[2017-03-18] MEDS ORDERED: FLUMAZENIL 0.5 MG/5 ML VIAL IV PUSH PRN (22:45)
[2017-03-18] MEDS ORDERED: LORazepam 2 MG/ML VIAL IV PUSH PRN ×4 (22:45)
[2017-03-19 06:24] VITALS: BP 180/93; PULSE 58; RESP 16; O2SAT 98
--- NOTE | 2017-03-19 12:37 | PD ---
History of Present Illness Chief Complaint: Altered Mental Status Time Seen by Provider: 12:20 Travel History International Travel<30 Days: No Contact w/Intl Traveler<30days: No Known affected area: No Legal Status Legal Status: Silva Act Silva Act Signed By: Shira Act Comment: Jose Carlos Dockery, [facility] [place] [facility] physician History of Present Illness: story of Present Illness HPI 76yo M with hx of DM and alcohol abuse who was brought to Ed after he was found with no shoes and no shirt, on his way to a bar. Ed physician contacted the patient's who reported that he was not acting right today and attempted to go to the bar with no shoes and no shirt. Pt was wearing a hat and pants only. She suspects that he has Alzheimer and that he has been forgetful for the last year. EMR is reviewed. He has been to Ed in 2014 and in 2017 while intoxicated. No BAL is available today. Patient is seen in main ED. He is awake,alert, knows he is in the hospital, tells me it is March 1971. The President is Obama. His speech is clear. He does not appear to be intoxicated at this time and appears clinically sober. He has been in ED over 12 hours. Mood is irritable and gets annoyed with the process. When asked how much he drinks states " a lot of beer.he does not quantify. When asked how long he has been drinking " along time. Since I was a teenager". When I suggest treatment to help him stop drinking " What for . I'm too old now". He does present memory impairment. He has no recollection of going out without a shirt and he states " What's wrong with that . I see it all the time. He denies experiencing any hallucinations, delusions . Denies any suicidal or homicidal ideation. Mood is irritable. Attention is decreased.Recall is 11/25, 09/27. Telephone call to patient's , Delilah at [phone]. She presented no concerns regarding his discharge from ED. He has an appointment on Monday morning with his PCP for evaluation of his memory. I have counseled her on safety issues including not allowing him to drive and hiding the car keys. She is in agreement with recommendation and plans on doing so. PFSH Past Medical History Hx Anticoagulant Therapy: Yes (asa 81mg) Cancer: Yes (PROSTATE) Cardiovascular Problems: Yes (htn, ) High Cholesterol: Yes Congestive Heart Failure: No Dementia: Yes Diabetes: Yes Patient Takes Glucophage: Yes Diminished Hearing: No Endocrine: Yes Gastrointestinal Disorders: Yes GERD: Yes Genitourinary: Yes Hypertension: Yes Implanted Vascular Access Dvce: Yes Musculoskeletal: Yes Neurologic: Yes (NEUROPATHY) Psychiatric: No Respiratory: Yes (copd) Tetanus Vaccination: Unknown Past Surgical History Abdominal Surgery: Yes (hernia repair, ) Body Medical Devices: FUSED NECK, METAL PLATES IN BACK/NECK Cholecystectomy: Yes Joint Replacement: Yes (rotator cuff repair) Other Surgery: Yes Psychiatric History Psychiatric History Hx Psychiatric Treatment: DENIES History of Inpatient Treatment: No Guns or firearms in home: No Social History x 47 years. Moved to [place] 18 years ago from [place]. worked as a employment coordinator x 27 years. 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 Reported Meds & Prescriptions Reported Meds & Active Scripts Active Cipro (Ciprofloxacin HCl) 500 Mg Tab 500 Mg PO BID 10 Days Cleocin (Clindamycin HCl) 150 Mg Cap 150 Mg PO Q6H 10 Days Reported Clindamycin (Clindamycin HCl) 300 Mg Cap 600 Mg PO Q8H Losartan (Losartan Potassium) 100 Mg Tab 100 Mg PO DAILY Triamterene-Hydrochlorothiazide 37.5-25 Mg Cap 1 Cap PO DAILY Pantoprazole (Pantoprazole Sodium) 40 Mg Tab 40 Mg PO DAILY Metformin (Metformin HCl) 1,000 Mg Tab 1,000 Mg PO BIDPC With meals Lovastatin 40 Mg Tab 40 Mg PO DAILY Xalatan Opth Drops (Latanoprost) 0.005% Drops 1 Drop EACH EYE HS Glyburide 5 Mg Tab 5 Mg PO DAILY Take with meals at the same time each day Gabapentin 600 Mg Tab 600 Mg PO BID Plavix (Clopidogrel Bisulfate) 75 Mg Tab 75 Mg PO DAILY Review of Systems Except as stated in HPI: all other systems reviewed are Neg Musculoskeletal: COMPLAINS OF: Joint pain Psychiatric: COMPLAINS OF: Confusion Exam Alert: Yes [place]: Person, Place, Date (partial) Mood: Angry Affect: Appropriate Speech: Clear, Logical Eye Contact: Normal Memory Intact: Immediate (poor), Recent (poor) Hallucinations: Other (negative) Delusions: No Suicidal: Ideation (Negative) Homicidal: Ideation (negative) Insight/Judgement Poor. Poor MDM Medical Decision Making Medical Record Reviewed: Yes Assessment/Plan 76 year old male with no psychiatric history but hx of alcohol abuse as well as cognitive impairment. Patient placed under BA by Ed provider. This patient does not meet criteria f ro BA at this time. I have contacted his who has an appointment already scheduled for him on Monday with his PCP. I have discussed safety issues with her including not allowing him to drive. Lift BA as he does not meet criteria. Follow up with PCP. Orders Complete Blood Count With Diff (03/18/17 17:18) Basic Metabolic Panel (Bmp) (03/18/17 17:18) Foot, Limited (2vws) (03/18/17 ) Foot, Limited (2vws) (03/18/17 ) Us Leg Venous Doppler (03/18/17 ) Ct Brain W/O Iv Contrast(Rout) (03/18/17 ) Urinalysis - C+S If Indicated (03/18/17 17:25) Diet Regular Basic (03/18/17 Dinner) Psych Screen (03/18/17 18:43) Clindamycin Inj (Cleocin Inj) (03/18/17 19:45) Ciprofloxacin (Cipro) (03/18/17 19:45) Alcohol Withdrawal Asmt-Ciwa ONCE (03/18/17 22:36) Ondansetron Inj (Zofran Inj) (03/18/17 22:45) Acetaminophen (Tylenol) (03/18/17 22:45) Albuterol Neb (Albuterol Neb) (03/18/17 22:45) Flumazenil Inj (Romazicon Inj) (03/18/17 22:45) Lorazepam (Ativan) (03/18/17 22:45) Lorazepam Inj (Ativan Inj) (03/18/17 22:45) Lorazepam (Ativan) (03/18/17 22:45) Lorazepam Inj (Ativan Inj) (03/18/17 22:45) Lorazepam Inj (Ativan Inj) (03/18/17 22:45) Lorazepam Inj (Ativan Inj) (03/18/17 22:45) Results Vital Signs Date Time Temp Pulse Resp B/P Pulse Ox O2 Delivery O2 Flow Rate FiO2 03/19/17 06:24 58 16 180/93 98 Room Air 03/18/17 20:38 75 16 128/75 99 Room Air 03/18/17 16:55 98.5 73 15 150/85 100 Room Air Laboratory Tests Test 03/18/17 17:30 White Blood Count 6.9 Red Blood Count 3.85 Hemoglobin 12.8 Hematocrit 37.0 Mean Corpuscular Volume 96.1 Mean Corpuscular Hemoglobin 33.2 Mean Corpuscular Hemoglobin 34.5 Concent Red Cell Distribution Width 12.6 Platelet Count 183 Mean Platelet Volume 7.7 Neutrophils (%) (Auto) 72.0 Lymphocytes (%) (Auto) 14.5 Monocytes (%) (Auto) 10.4 Eosinophils (%) (Auto) 2.5 Basophils (%) (Auto) 0.6 Neutrophils # (Auto) 4.9 Lymphocytes # (Auto) 1.0 Monocytes # (Auto) 0.7 Eosinophils # (Auto) 0.2 Basophils # (Auto) 0.0 CBC Comment DIFF FINAL Differential Comment Urine Color YELLOW Urine Turbidity CLEAR Urine pH 7.0 Urine Specific [place] 1.014 Urine Protein 100 Urine Glucose (UA) 1000 Urine Ketones NEG Urine Occult Blood NEG Urine Nitrite NEG Urine Bilirubin NEG Urine Urobilinogen LESS THAN 2.0 Urine Leukocyte Esterase NEG Urine RBC 1 Urine WBC LESS THAN 1 Microscopic Urinalysis Comment CULT NOT INDICATED Sodium Level 136 Potassium Level 3.7 Chloride Level 99 Carbon Dioxide Level 29.5 Anion Gap 8 Blood Urea Nitrogen 12 Creatinine 0.99 Estimat Glomerular Filtration 73 Rate Random Glucose 231 Calcium Level 8.7 Diagnosis Primary Impression: Dementia Additional Impression: Alcohol abuse Psychiatrically Cleared: Yes Med/ Other Pt Specific Info: No Change to Meds Prescriptions Ciprofloxacin (Cipro)500 Mg [id number] Mg PO BID 10 Days Ref 0 Prov:Francis Jordan MD 03/18/17 Clindamycin (Cleocin)150 Mg [id number] Mg PO Q6H 10 Days Ref 0 Prov:Francis Jordan MD 03/18/17 Disposition: 01 DISCHARGE HOME Condition: Stable Problem Qualifiers Primary Impression: Dementia Qualified Code: F03.90 - Dementia without behavioral disturbance, unspecified dementia type Angelique Dunn Mar 19, 2017 12:37
== END 2017-03-19 13:38 | disposition home or self-care (01) ==
LOC: NEPC 16:39
DX: F03.90 Unspecified dementia, unspecified severity, without behavioral disturbance, psychotic disturbance, mood disturbance, and anxiety (principal); F10.10 Alcohol abuse, uncomplicated; M79.89 Other specified soft tissue disorders; I10 Essential (primary) hypertension; E78.00 Pure hypercholesterolemia, unspecified; K21.9 Gastro-esophageal reflux disease without esophagitis; E11.40 Type 2 diabetes mellitus with diabetic neuropathy, unspecified; J44.9 Chronic obstructive pulmonary disease, unspecified; Z79.899 Other long term (current) drug therapy
CPT/HCPCS: 70450; 73620; 80048; 81001; 85025; 93971; 96365; 96375; 99285; J2060

== ENCOUNTER 2017-06-07 11:07 | Inpatient (IN) | payer OTHER, MEDICARE ==
[~2017-06-07] VITALS: Ht 182.9 cm; Wt 72.7 kg
[~2017-06-07 11:07] MED LIST changes: -ASPI1TAB69 PO; +CIPR-9 PO; +CLIN150 PO; +CLIN1CAP6 PO; -FOLI1TAB4 PO; +LOSA100T PO
[2017-06-07 11:31] VITALS: BP 130/71; PULSE 59; RESP 20; TEMP 98.7
[2017-06-07 12:40] LABS: AUTOMATED NEUTROPHIL # 6.1 TH/MM3 (1.8-7.7); BASOPHIL % 0.5 % (0.0-2.0); EOSINOPHIL # 0.1 TH/MM3 (0-0.4); EOSINOPHIL % 1.2 % (0.0-4.0); HEMATOCRIT 39.5 % (39.0-51.0); HEMO FLAGS DIFF FINAL; LYMPH % 12.3 % (9.0-44.0); MEAN CELL VOLUME 97.2 FL (80.0-100.0); MONO % 8.9 % (0.0-8.0); NEUT % 77.1 % (16.0-70.0); PLATELET COUNT 168 TH/MM3 (150-450); RED BLOOD COUNT 4.07 MIL/MM3 (4.50-5.90); RED CELL DISTRIBUTION WIDTH 13.4 % (11.6-17.2); WHITE BLOOD COUNT 7.9 TH/MM3 (4.0-11.0)
[2017-06-07 12:54] LABS: ANION GAP 7 MEQ/L (5-15); AST (GOT) 30 U/L (15-37); BICARBONATE 28.8 MEQ/L (21.0-32.0); BLOOD UREA NITROGEN 12 MG/DL (7-18); CHLORIDE 101 MEQ/L (98-107); GLOMERULAR FILTRATION RATE 56 ML/MIN (>89); POTASSIUM 3.8 MEQ/L (3.5-5.1); SODIUM (NA) 137 MEQ/L (136-145)
--- NOTE | 2017-06-07 12:55 | PD ---
HPI Chief Complaint: Altered Mental Status Time Seen by Provider: 12:34 Travel History International Travel<30 days: No Contact w/Intl Traveler<30days: No Traveled to known affect area: No History of Present Illness HPI This is a 77-year-old male who presents to the emergency department under a Silva act because he was fighting with his and he took the car and drove to another county under a silver alert. He's been increasingly difficult to manage at home. History of dementia. Patient doesn't provide any history. PFSH Past Medical History Hx Anticoagulant Therapy: Yes (asa 81mg) Cancer: Yes (PROSTATE) Cardiovascular Problems: Yes ( ) High Cholesterol: Yes Congestive Heart Failure: No COPD: Yes Dementia: Yes Diabetes: Yes Patient Takes Glucophage: Yes Diminished Hearing: No Endocrine: Yes Gastrointestinal Disorders: Yes GERD: Yes Genitourinary: Yes Hypertension: Yes Implanted Vascular Access Dvce: Yes Musculoskeletal: Yes Neurologic: Yes (NEUROPATHY) Psychiatric: No Respiratory: Yes ( ) Past Surgical History Abdominal Surgery: Yes (hernia repair, ) Body Medical Devices: FUSED NECK, METAL PLATES IN BACK/NECK Cholecystectomy: Yes Joint Replacement: Yes (rotator cuff repair) Neurologic Surgery: Yes (C5,6,7) Other Surgery: Yes Social History Alcohol Use: Yes (6 pk daily BEER) Tobacco Use: No (QUIT 25 YEARS AGO) Substance Use: No ( ) Allergies-Medications (Allergen,Severity, Reaction): Coded Allergies: *MDRO Multi-Drug Resistant Organism (Verified Adverse Reaction, Unknown, ) 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 Reported Meds & Prescriptions Reported Meds & Active Scripts Active Reported Losartan (Losartan Potassium) 100 Mg Tab 100 Mg PO DAILY Triamterene-Hydrochlorothiazide 37.5-25 Mg Cap 1 Cap PO DAILY Pantoprazole (Pantoprazole Sodium) 40 Mg Tab 40 Mg PO DAILY Metformin (Metformin HCl) 1,000 Mg Tab 1,000 Mg PO BIDPC With meals Lovastatin 40 Mg Tab 40 Mg PO DAILY Xalatan Opth Drops (Latanoprost) 0.005% Drops 1 Drop EACH EYE HS Glyburide 5 Mg Tab 5 Mg PO DAILY Take with meals at the same time each day Gabapentin 600 Mg Tab 600 Mg PO BID Plavix (Clopidogrel Bisulfate) 75 Mg Tab 75 Mg PO DAILY Review of Systems Except as stated in HPI: all other systems reviewed are Neg Physical Exam Narrative GENERAL:Well appearing, no acute distress SKIN: Skin tears on both arms. HEAD: Atraumatic. Normocephalic. EYES: Pupils equal and round. No injection or drainage. ENT: Moist mucous membranes NECK: Trachea midline. CARDIOVASCULAR: Regular rate and rhythm. No murmur appreciated. RESPIRATORY: Clear to auscultation. Breath sounds equal bilaterally. GASTROINTESTINAL: Abdomen soft, non-tender, nondistended. MUSCULOSKELETAL: No obvious deformities. NEUROLOGICAL: Confused. No obvious cranial nerve deficits. Moving all extremities. Data Data Last Documented VS Vital Signs Date Time Temp Pulse Resp B/P (MAP) Pulse Ox O2 Delivery O2 Flow Rate FiO2 06/07/17 14:05 62 18 175/82 (113) 98 Room Air 06/07/17 11:31 98.7 Orders Orders Complete Blood Count With Diff (06/07/17 11:59) Comprehensive Metabolic Panel (06/07/17 11:59) Urinalysis - C+S If Indicated (06/07/17 11:59) Alcohol (Ethanol) (06/07/17 11:59) Labs Laboratory Tests Test 06/07/17 12:10 White Blood Count 7.9 TH/MM3 Red Blood Count 4.07 MIL/MM3 Hemoglobin 13.4 GM/DL Hematocrit 39.5 % Mean Corpuscular Volume 97.2 FL Mean Corpuscular Hemoglobin 33.0 PG Mean Corpuscular Hemoglobin Concent 34.0 % Red Cell Distribution Width 13.4 % Platelet Count 168 TH/MM3 Mean Platelet Volume 8.2 FL Neutrophils (%) (Auto) 77.1 % Lymphocytes (%) (Auto) 12.3 % Monocytes (%) (Auto) 8.9 % Eosinophils (%) (Auto) 1.2 % Basophils (%) (Auto) 0.5 % Neutrophils # (Auto) 6.1 TH/MM3 Lymphocytes # (Auto) 1.0 TH/MM3 Monocytes # (Auto) 0.7 TH/MM3 Eosinophils # (Auto) 0.1 TH/MM3 Basophils # (Auto) 0.0 TH/MM3 CBC Comment DIFF FINAL Differential Comment Blood Urea Nitrogen 12 MG/DL Creatinine 1.25 MG/DL Random Glucose 166 MG/DL Total Protein 7.9 GM/DL Albumin 2.8 GM/DL Calcium Level 8.9 MG/DL Alkaline Phosphatase 98 U/L Aspartate Amino Transf (AST/SGOT) 30 U/L Alanine Aminotransferase (ALT/SGPT) 20 U/L Total Bilirubin 1.0 MG/DL Sodium Level 137 MEQ/L Potassium Level 3.8 MEQ/L Chloride Level 101 MEQ/L Carbon Dioxide Level 28.8 MEQ/L Anion Gap 7 MEQ/L Estimat Glomerular Filtration Rate 56 ML/MIN Ethyl Alcohol Level LESS THAN 3 MG/DL MDM Medical Decision Making Medical Screen Exam Complete: Yes Emergency Medical Condition: Yes Differential Diagnosis Dementia, depression, psychosis, agitation Narrative Course This is a 77-year-old male who presents to the emergency department having taken his car yesterday and driven several counties away. He has a history of dementia and is confused. On exam he is confused but very calm and cooperative. I don't think he meets Silva act criteria as I don't appreciate a mental health diagnosis. I spoke to case management. I think the patient requires placement in a shelter. I spoke to the patient's who agrees. I don't think the patient would benefit from an inpatient psychiatric stay and his agrees. Unfortunately family will have to work towards coordinating this at home. We did look into trying to facilitate placement from the emergency department but the patient's financial resources limit our ability to do this. I think the patient is safe to be discharged with his family. I don't think he is a harm to himself or others and I don't think I can keep him involuntarily as he doesn't meet Silva Act criteria and has no active mental illness. Diagnosis Primary Impression: Dementia Qualified Codes: F03.91 - Unspecified dementia with behavioral disturbance Patient Instructions: General Instructions Med/Other Pt SpecificInfo: No Change to Meds Disposition: 01 DISCHARGE HOME Condition: Stable Lia Barreto MD Jun 07, 2017 12:55
[2017-06-07 12:57] LABS: ALKALINE PHOSPHATASE 98 U/L (45-117); ALT (GPT) 20 U/L (12-78)
[2017-06-07 13:00] LABS: ALCOHOL LESS THAN 3 MG/DL (0-5)
[2017-06-07 14:05] VITALS: BP 175/82; PULSE 62; RESP 18; O2SAT 98
[2017-06-07 16:38] VITALS: BP 148/88; PULSE 56; RESP 19; O2SAT 97
[2017-06-07 19:10] VITALS: BP 156/72; PULSE 68; RESP 18; TEMP 98.5; O2SAT 97
[2017-06-08 00:21] VITALS: BP 158/74; PULSE 68; RESP 17; O2SAT 99
[2017-06-08 05:22] VITALS: BP 150/72; PULSE 54; RESP 21; O2SAT 100
[2017-06-08 08:33] VITALS: BP 161/77; PULSE 63; RESP 18; TEMP 97.6; O2SAT 96
--- NOTE | 2017-06-08 09:53 | PD ---
History of Present Illness Chief Complaint: Altered Mental Status Time Seen by Provider: 09:35 Travel History International Travel<30 Days: No Contact w/Intl Traveler<30days: No Known affected area: No Legal Status Legal Status: Involuntary History of Present Illness: History of Present Illness HPI This is a 77-year-old male with history of dementia who presents to the emergency department under a Silva act initiated by law enforcement. The BA alleges that he was fighting with his , took the car and drove to another county He was a silver alert . ED documentation indicate that he has been increasingly difficult to manage at home. Dr. Hayes saw the patient yesterday and lifted the BA as case making machine operator was making plans for disposition. The refused to accept the patient back home. Patient seen. EMR reviewed. I have attempted to call his , Delilah at [phone] to obtain further information but there was no answer . Message left for her to call [facility] [place] [facility]. There is also documentation from case making machine operator who contacted his son in an attempt to formulate a discharge plan . The son was concerned for father's safety if he were to be discharged. This patient is known to this comic book writer from a previous visit to ED in February of this year. At that time he left his house in his underwear to go to the nearest bar. His at that time chose to have him evaluated b y his PCP. The patient is alert,oriented to person, place and partial to date. " May,. The president is [place]. At present he is calm and cooperative and has not been a behavioral problem since in ED. He acknowledges that he has " some problems with forgetting little things". He does not have recollection of the events yesterday. He does not appear to be responding to internal stimuli. He denies suicidal ideation as well as denying any depression. He is able to name 3 objects repeated to him 3/3, 3/3 and was able to spell the word WORLD forward and backwards. In terms of his use of alcohol he states that he " drink a couple of beers a day since I was a kid". PFSH Past Medical History Hx Anticoagulant Therapy: Yes (asa 81mg) Cancer: Yes (PROSTATE) Cardiovascular Problems: Yes ( ) High Cholesterol: Yes Congestive Heart Failure: No COPD: Yes Dementia: Yes Diabetes: Yes Patient Takes Glucophage: Yes Diminished Hearing: No Endocrine: Yes Gastrointestinal Disorders: Yes GERD: Yes Genitourinary: Yes Hypertension: Yes Implanted Vascular Access Dvce: Yes Musculoskeletal: Yes Neurologic: Yes (NEUROPATHY) Psychiatric: No Respiratory: Yes ( ) Past Surgical History Abdominal Surgery: Yes (hernia repair, ) Body Medical Devices: FUSED NECK, METAL PLATES IN BACK/NECK Cholecystectomy: Yes Joint Replacement: Yes (rotator cuff repair) Neurologic Surgery: Yes (C5,6,7) Other Surgery: Yes Psychiatric History Psychiatric History None Hx Psychiatric Treatment: None History of Inpatient Treatment: No Guns or firearms in home: No Social History x 44 years. Lives with . Retired firearm. Has 2 children one who is . Hx Alcohol Use: Yes (6 pk daily BEER) Hx Tobacco Use: No (QUIT 25 YEARS AGO) Hx Substance Use: Yes (6 beers/day) Substance Use Type: Alcohol (" a couple of cans per day" for "all my life".) Hx of Substance Use Treatment: No Family Psychiatric History None reported. 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 Reported Meds & Prescriptions Reported Meds & Active Scripts Active Reported Losartan (Losartan Potassium) 100 Mg Tab 100 Mg PO DAILY Triamterene-Hydrochlorothiazide 37.5-25 Mg Cap 1 Cap PO DAILY Pantoprazole (Pantoprazole Sodium) 40 Mg Tab 40 Mg PO DAILY Metformin (Metformin HCl) 1,000 Mg Tab 1,000 Mg PO BIDPC With meals Lovastatin 40 Mg Tab 40 Mg PO DAILY Xalatan Opth Drops (Latanoprost) 0.005% Drops 1 Drop EACH EYE HS Glyburide 5 Mg Tab 5 Mg PO DAILY Take with meals at the same time each day Gabapentin 600 Mg Tab 600 Mg PO BID Plavix (Clopidogrel Bisulfate) 75 Mg Tab 75 Mg PO DAILY Review of Systems Except as stated in HPI: all other systems reviewed are Neg Exam Alert: Yes [place]: Person, Place, Date (partial) Mood: Calm Affect: Appropriate Speech: Clear, Logical Eye Contact: Normal Memory Intact: Comment (Poor for recent) Hallucinations: Other (negative) Delusions: No Suicidal: Ideation (Deneis any) Homicidal: Ideation (deneis any) Insight/Judgement Poor. Poor. MDM Medical Decision Making Medical Record Reviewed: Yes Assessment/Plan This is a 77-year-old male with history of dementia who presents to the emergency department under a Silva act initiated by law enforcement. The BA alleges that he was fighting with his , took the car and drove to another county He was a silver alert . ED documentation indicate that he has been increasingly difficult to manage at home. Dr. Hayes saw the patient yesterday and lifted the BA as case making machine operator was making plans for disposition. The refused to accept the patient back home. Patient meets criteria for inpatient level of care as he is at risk of harm to himself. Case is discussed with Dr. Lynch who accepts the patient . Orders Orders Complete Blood Count With Diff (06/07/17 11:59) Comprehensive Metabolic Panel (06/07/17 11:59) Alcohol (Ethanol) (06/07/17 11:59) Diet Regular Basic (06/07/17 Dinner) Psych Screen (06/07/17 17:20) Results Vital Signs Date Time Temp Pulse Resp B/P (MAP) Pulse Ox O2 Delivery O2 Flow Rate FiO2 06/08/17 08:33 97.6 63 18 161/77 (105) 96 Room Air 06/08/17 05:22 54 21 150/72 (98) 100 Nasal Cannula 2.00 06/08/17 00:21 68 17 158/74 (102) 99 Room Air 06/07/17 19:10 98.5 68 18 156/72 (100) 97 Room Air 06/07/17 16:38 56 19 148/88 (108) 97 Room Air 06/07/17 14:05 62 18 175/82 (113) 98 Room Air 06/07/17 11:31 98.7 59 20 130/71 (90) Laboratory Tests Test 06/07/17 12:10 White Blood Count 7.9 Red Blood Count 4.07 Hemoglobin 13.4 Hematocrit 39.5 Mean Corpuscular Volume 97.2 Mean Corpuscular Hemoglobin 33.0 Mean Corpuscular Hemoglobin Concent 34.0 Red Cell Distribution Width 13.4 Platelet Count 168 Mean Platelet Volume 8.2 Neutrophils (%) (Auto) 77.1 Lymphocytes (%) (Auto) 12.3 Monocytes (%) (Auto) 8.9 Eosinophils (%) (Auto) 1.2 Basophils (%) (Auto) 0.5 Neutrophils # (Auto) 6.1 Lymphocytes # (Auto) 1.0 Monocytes # (Auto) 0.7 Eosinophils # (Auto) 0.1 Basophils # (Auto) 0.0 CBC Comment DIFF FINAL Differential Comment Blood Urea Nitrogen 12 Creatinine 1.25 Random Glucose 166 Total Protein 7.9 Albumin 2.8 Calcium Level 8.9 Alkaline Phosphatase 98 Aspartate Amino Transf (AST/SGOT) 30 Alanine Aminotransferase (ALT/SGPT) 20 Total Bilirubin 1.0 Sodium Level 137 Potassium Level 3.8 Chloride Level 101 Carbon Dioxide Level 28.8 Anion Gap 7 Estimat Glomerular Filtration Rate 56 Ethyl Alcohol Level LESS THAN 3 Diagnosis Primary Impression: Dementia Additional Impression: Alcohol abuse Admitting Information Admitting Physician Requests: Admit Departure Forms: Tests/Procedures Patient Instructions: General Instructions Disposition: 01 DISCHARGE HOME Problem Qualifiers Primary Impression: Dementia Qualified Codes: F03.91 - Unspecified dementia with behavioral disturbance Angelique Dunn [facility] Jun 08, 2017 09:53
[2017-06-08] MEDS ORDERED: ALUMINUM/MAGNESIUM/SIMETH 30 ML CUP PO PRN (11:45)
[2017-06-08] MEDS ORDERED: ACETAMINOPHEN 325 MG TAB PO PRN (11:45)
[2017-06-08] MEDS ORDERED: MAGNESIUM HYDROXIDE SUSP 30 ML CUP PO PRN (11:45)
[2017-06-08 12:18] VITALS: BP 113/77; PULSE 65; RESP 20; TEMP 97.7; O2SAT 99
[2017-06-08 15:15] VITALS: BP 162/79; PULSE 60; RESP 17; TEMP 97.5; O2SAT 100
[2017-06-08] MEDS: metFORMIN HCL 500 MG TAB PO SCH (17:09)
[2017-06-08 18:00] VITALS: BP 162/79; PULSE 60; RESP 17; TEMP 97.5; O2SAT 100
[2017-06-08] MEDS: LATANOPROST 0.005% OPHT SOLN 2.5 ML BTL EACH EYE SCH (21:00)
[2017-06-08] MEDS: GABAPENTIN 300 MG CAP PO SCH (21:03)
[2017-06-09 05:31] VITALS: BP 135/75; PULSE 53; RESP 17; TEMP 98.1
[2017-06-09] MEDS: TRIAMTERENE/HCTZ 37.5 MG/25 MG CAP PO SCH (09:00)
[2017-06-09] MEDS: PANTOPRAZOLE SOD 40 MG DELAYED RELEASE TAB PO SCH (09:02)
[2017-06-09] MEDS: metFORMIN HCL 500 MG TAB PO SCH ×2 (09:02→18:00)
[2017-06-09] MEDS: LOSARTAN 50 MG TAB PO SCH (09:02)
[2017-06-09] MEDS: glyBURIDE 5 MG TAB PO SCH (09:02)
[2017-06-09] MEDS: GABAPENTIN 300 MG CAP PO SCH ×2 (09:02→21:41)
[2017-06-09] MEDS: CLOPIDOGREL 75 MG TAB PO SCH (09:03)
[2017-06-09] MEDS: PRAVASTATIN SOD 40 MG TAB PO SCH (09:03)
[2017-06-09] MEDS ORDERED: ALUMINUM/MAGNESIUM/SIMETH 30 ML CUP PO PRN (10:45)
[2017-06-09] MEDS ORDERED: ACETAMINOPHEN 325 MG TAB PO PRN (10:45)
[2017-06-09] MEDS ORDERED: MAGNESIUM HYDROXIDE SUSP 30 ML CUP PO PRN (10:45)
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
--- NOTE | 2017-06-09 11:37 | EKG ---
Date Performed: 06/08/2017 Time Performed: 12:14:56 PTAGE: 77 years EKG: Sinus rhythm WITH FIRST DEGREE AV BLOCK ABNORMAL ECG Compared to prior tracing no significant change PREVIOUS TRACING : 12/31/2016 19.22 DOCTOR: Gregg Reyna Interpretating Date/Time 06/09/2017 11:36:32
[2017-06-09 13:43] LABS: ANION GAP 5 MEQ/L (5-15); BICARBONATE 32.3 MEQ/L (21.0-32.0); BLOOD UREA NITROGEN 13 MG/DL (7-18); CHLORIDE 101 MEQ/L (98-107); GLOMERULAR FILTRATION RATE 65 ML/MIN (>89); HDL CHOLESTEROL 75.4 MG/DL (40.0-60.0); LDL CHOLESTEROL 75 MG/DL (0-99); POTASSIUM 3.7 MEQ/L (3.5-5.1); SODIUM (NA) 138 MEQ/L (136-145)
[2017-06-09 14:09] LABS: HEMOGLOBIN A1a 1.1 %; HEMOGLOBIN A1b 0.8 %; HEMOGLOBIN F 1.2 %; HEMOGLOBIN LA1C 2.4 %; HEMOGLOBIN P3 3.9 %
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
[2017-06-09] MEDS: LATANOPROST 0.005% OPHT SOLN 2.5 ML BTL EACH EYE SCH (21:00)
[2017-06-09] MEDS: hydrOXYzine HCL 50 MG TAB PO PRN (21:41)
[2017-06-10 06:15] VITALS: BP 135/70; PULSE 58; RESP 16; TEMP 97.9; O2SAT 97
[2017-06-10] MEDS: metFORMIN HCL 500 MG TAB PO SCH ×2 (08:38→18:00)
[2017-06-10] MEDS: GABAPENTIN 300 MG CAP PO SCH (08:38)
[2017-06-10] MEDS: PRAVASTATIN SOD 40 MG TAB PO SCH (08:38)
[2017-06-10] MEDS: PANTOPRAZOLE SOD 40 MG DELAYED RELEASE TAB PO SCH (08:39)
[2017-06-10] MEDS: TRIAMTERENE/HCTZ 37.5 MG/25 MG CAP PO SCH (08:39)
[2017-06-10] MEDS: CLOPIDOGREL 75 MG TAB PO SCH (08:39)
[2017-06-10] MEDS: glyBURIDE 5 MG TAB PO SCH (08:39)
[2017-06-10] MEDS: LOSARTAN 50 MG TAB PO SCH (08:39)
[2017-06-10] MEDS ORDERED: FLUMAZENIL 0.5 MG/5 ML VIAL IV PUSH PRN (13:45)
[2017-06-10] MEDS ORDERED: THIAMINE HCL 100 MG TAB PO ONE (13:45)
[2017-06-10] MEDS ORDERED: LORazepam 1 MG TAB PO PRN (13:45)
[2017-06-10] MEDS ORDERED: FOLIC ACID 1 MG TAB PO ONE (13:45)
[2017-06-10] MEDS ORDERED: LORazepam 2 MG TAB PO PRN (13:45)
[2017-06-10] MEDS ORDERED: LORazepam 2 MG/ML VIAL IV PUSH PRN ×4 (13:45)
[2017-06-10] MEDS ORDERED: GLUCAGON 1 MG/ML VIAL OTHER PRN (13:45)
[2017-06-10] MEDS ORDERED: DEXTROSE 50% IN WATER 50 ML VIAL(D50) IV PRN (13:45)
--- NOTE | 2017-06-10 13:59 | PD.CONS ---
HPI Service [facility] Hospitalists Consult Requested By Psychiatric services Reason for Consult Medical management Primary Care Physician Jefferson Alvarez MD Diagnoses: History of Present Illness This is a 77-year-old male with a past medical history significant for hypertension, dyslipidemia, diabetes, COPD, neuropathy, GERD and history of alcohol abuse who presented to the ED under Silva act initiated by law- enforcement the patient got in a fight with his , took the car and drove to another county. Patient was a Silver alert. Silva act was to be lifted while in the ED however the patient's refused to accept the patient back home. Patient has since been admitted to the inpatient psychiatric unit. Hospitalist services have been consulted for medical management. Neurology has also been consulted for possible dementia and has ordered an MRI of the brain and cervical spine. Per psychiatric note, patient has been diagnosed with dementia by Dr. Lock was neurologist here in [facility]. Apparently, patient's had increasing difficulty with forgetfulness, wandering out on his own and getting lost. Patient seen and examined. He is oriented at this time. His only complaint to me at present is ongoing weakness and unsteady gait which has been ongoing for the past several weeks. He denies any recent illness. Denies any fever or chills. He denies any lightheadedness or dizziness. Denies any vision changes or headache. He denies any nausea, vomiting or abdominal pain. Denies any chest pain or shortness of breath. He denies any urinary difficulties. He also denies any diarrhea or constipation. Patient minutes that he drinks 6-7 beers daily. He denies any visual or auditory hallucinations. He denies any previous alcohol withdrawal symptoms or seizures. Patient states he is independent at home and ambulates with the use of a cane. Review of Systems Except as stated in HPI: all other systems reviewed are Neg Past Family Social History Allergies: Coded Allergies: *MDRO Multi-Drug Resistant Organism (Verified Adverse Reaction, Unknown, ) 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 Past Medical History Hypertension CAD Diabetes Neuropathy Hyperlipidemia GERD History of prostate cancer Previous cervical fusion Previous pancreatitis History of MRSA infection left foot Glaucoma Past Surgical History C56 fusion Cholecystectomy Cardiac catheterization 2008 Abdominal hernia repair Left rotator cuff repair Reported Medications Losartan (Losartan Potassium) 100 Mg Tab 100 Mg PO DAILY Triamterene-Hydrochlorothiazide 37.5-25 Mg Cap 1 Cap PO DAILY Pantoprazole (Pantoprazole Sodium) 40 Mg Tab 40 Mg PO DAILY Metformin (Metformin HCl) 1,000 Mg Tab 1,000 Mg PO BIDPC With meals Lovastatin 40 Mg Tab 40 Mg PO DAILY Xalatan Opth Drops (Latanoprost) 0.005% Drops 1 Drop EACH EYE HS Glyburide 5 Mg Tab 5 Mg PO DAILY Take with meals at the same time each day Gabapentin 600 Mg Tab 600 Mg PO BID Plavix (Clopidogrel Bisulfate) 75 Mg Tab 75 Mg PO DAILY Active Ordered Medications Current Medications Medications (Trade) Dose Ordered Sig/Azul Route Start Time Stop Time Status Last Admin (Tylenol) 650 mg Q4H PRN PO 06/08/17 11:45 (Milk Of Magnesia Liq) 30 ml DAILY PRN PO 06/08/17 11:45 (Mag-Al Plus Susp Liq) 30 ml Q6H PRN PO 06/08/17 11:45 (Plavix) 75 mg DAILY PO 06/09/17 09:00 06/10/17 08:39 (Neurontin) 600 mg BID PO 06/08/17 21:00 06/10/17 08:38 (Diabeta) 5 mg DAILY PO 06/09/17 09:00 06/10/17 08:39 (Xalatan 0.005% Opth Soln) 1 drop HS EACH EYE 06/08/17 21:00 (Cozaar) 100 mg DAILY PO 06/09/17 09:00 06/10/17 08:39 (Pravachol) 40 mg DAILY PO 06/09/17 09:00 06/10/17 08:38 (Glucophage) 1,000 mg BIDPC PO 06/08/17 18:00 06/10/17 08:38 (Protonix) 40 mg DAILY PO 06/09/17 09:00 06/10/17 08:39 (Dyazide 37.5-25 Mg) 1 cap DAILY PO 06/09/17 09:00 06/10/17 08:39 (Tylenol) 650 mg Q4H PRN PO 06/09/17 10:45 (Milk Of Magnesia Liq) 30 ml DAILY PRN PO 06/09/17 10:45 (Mag-Al Plus Susp Liq) 30 ml Q6H PRN PO 06/09/17 10:45 (Atarax) 50 mg Q6H PRN PO 06/09/17 10:45 06/09/17 21:41 Family History Patient denies any family medical history of heart disease, high blood pressure , stroke or diabetes. Social History Patient has a history of tobacco use of one pack per day starting when he was a teenager but quit 1991. Patient reports EtOH consumption of 6-7 beers daily. Patient denies any illicit drug use. Patient is lives with his . He is still currently driving. Physical Exam Vital Signs Vital Signs Date Time Temp Pulse Resp B/P (MAP) Pulse Ox O2 Delivery O2 Flow Rate FiO2 06/10/17 06:15 97.9 58 16 135/70 (91) 97 Physical Exam GENERAL: This is a well-nourished, well-developed patient, in no apparent distress. Awake and alert. Lying in hospital bed. Appears comfortable. SKIN: Positive for left heel ulceration and abrasion on left toe. Cool and dry. HEAD: Atraumatic. Normocephalic. No temporal or scalp tenderness. EYES: Pupils equal round and reactive. Extraocular motions intact. No scleral icterus. No injection or drainage. ENT: Nose without bleeding or purulent drainage. Throat without erythema, tonsillar hypertrophy or exudate. Uvula midline. Airway patent. NECK: Trachea midline. No lymphadenopathy. Supple, nontender, no meningeal signs. CARDIOVASCULAR: Regular rate and rhythm without murmurs, gallops, or rubs. RESPIRATORY: Clear to auscultation. Breath sounds equal bilaterally. No wheezes , rales, or rhonchi. GASTROINTESTINAL: Abdomen soft, non-tender, nondistended. No hepato-splenomegaly , or palpable masses. No guarding. MUSCULOSKELETAL: Extremities without clubbing, cyanosis, or edema. No joint tenderness, effusion, or edema noted. No calf tenderness. Weak left tricep noted. NEUROLOGICAL: Awake and alert. Able to move all extremities. Normal speech. Laboratory Laboratory Tests Test 06/10/17 11:06 Erythrocyte Sedimentation Rate 34 Result Diagram: 06/07/17 1210 06/09/17 1155 Assessment and Plan Assessment and Plan 77-year-old male with a past medical history significant for hypertension, dyslipidemia, diabetes, COPD, neuropathy, GERD and history of alcohol abuse who presented to the ED under Silva act initiated by law-enforcement the patient got in a fight with his , took the car and drove to another [facility]. Patient was a Silver alert. Silva act was to be lifted while in the ED however the patient's refused to accept the patient back home. Patient has since been admitted to the inpatient psychiatric unit. Hospitalist services have been consulted for medical management. Dementia with behavioral disturbances - Management per psychiatric team - Reportedly patient's recently been diagnosed with dementia by Dr. Lock but no dementia meds listed on med rec - Neurology following and has ordered MRI of the brain and cervical spine. We'll follow up on results and recommendations. - Hold gabapentin - Avoid sedatives if possible - CT of the head obtained 03/18/17 shows no acute abnormality and generalized atrophy. - TSH WNL. B12 level 508. Elevated ESR 34. Follow-up on Thiamine, NAHOMY, RPR and MMA levels as previously ordered. - UA with reflex ordered. CXR ordered. Left tricep weakness Unsteady gait History of cervical fusion - Will follow-up on MRI studies as ordered by neurology - PT/OT eval/tx - Fall precautions Left foot ulcer Left toe abrasion - h/o MRSA infx left foot - wound culture - wound care Hypertension CAD - Patient is normotensive - Continue patient on losartan 100 mg daily, Triamterene/hydrochlorothiazide 37.5/25 mg 1 cap by mouth daily and Plavix 75mg daily - Monitor BP Diabetes - Continue patient on home dose of metformin and glyburide - Hemoglobin A1c 6.3 - Accu-Cheks - Insulin sliding scale - Change to heart healthy diabetic diet History of alcohol abuse - Patients had multiple admissions for alcohol intoxication - Thiamine and folate daily - CIWA protocol - Monitor for s/sxs EtOH withdrawal - Seizure protocol Neuropathy - Patient takes gabapentin at home. Recommend holding for now given patient' s decline in cognitive function and unsteady gait. COPD, not in acute exacerbation - Duonebs as needed - Monitor respiratory status HLD - Continue patient on statin therapy GERD - Continue patient on home dose of pantoprazole 40 mg daily Vitamin D deficiency - Begin by mouth supplementation - Patient will need to have level rechecked with PCP as outpatient in 3 months Hx of CAP - stable DVT prophylaxis - Patient is ambulatory The exam, history, and the medical decision-making described in the above note were completed with the assistance of the mid-level provider. I reviewed and agree with the findings presented. I attest that I had a [id number] encounter with the patient on the same day, and personally performed and documented my assessment and findings in the medical record. Patient reports weakness and unsteady gate ongoing for weeks. GENERAL: Disheveled male, in no apparent distress. CARDIOVASCULAR: Normal rate and regular rhythm without murmurs, gallops, or rubs. RESPIRATORY: Good respiratory efforts. Breath sounds equal and clear to auscultation bilaterally. GASTROINTESTINAL: Abdomen soft, non-tender, non-distended. Normal active bowel sounds MUSCULOSKELETAL: Extremities without cyanosis, or edema. NEURO: Awake and alert. Moves all ext x4 Awaiting brain MRI and further input from neurology. Gait disturbances may be related to neuropathy from chronic alcohol abuse. Continue chronic home medications as detailed above. Discussed Condition With Discussed with patient, nursing staff and Aurora Lynch Jun 10, 2017 13:59 Kristin Veloz MD Jun 10, 2017 15:44
[2017-06-10] MEDS ORDERED: RESP: ALBUTEROL 2.5 MG/IPRATROPIUM 0.5 MG NEB (PRN) NEB (14:15)
--- NOTE | 2017-06-10 15:08 | HHI.PYPN ---
Subjective Remarks This Is a request for second opinion. Admission note reviewed, case discussed with nursing, and patient seen. Patient has poor insight is argumentative concerning his admission. Alert and oriented 2, does not know the year, does not know the president. Largely seclusive to self. CIWA is between 0 and 4 per nursing. He denies nausea or vomiting, no tremors noted denies visual hallucinations. Objective Alert: Yes [place]: Person, Place Mood: Calm Affect: Appropriate Memory Intact: Comment (Poor for recent) Hallucinations: Other (negative) Delusions: No Delusion Type: Other Suicidal: Ideation (Deneis any) Homicidal: Ideation (deneis any) Insight/Judgment Poor Labs Test 06/10/17 11:06 Erythrocyte Sedimentation Rate 34 mm/hr Vitals/IOs Vital Signs Date Time Temp Pulse Resp B/P (MAP) Pulse Ox O2 Delivery O2 Flow Rate FiO2 06/10/17 06:15 97.9 58 16 135/70 (91) 97 06/08/17 12:18 Room Air 06/08/17 05:22 2.00 Intake and Output 06/10/17 06/10/17 06/11/17 08:00 16:00 00:00 Intake Total 120 ml 240 ml Balance 120 ml 240 ml Assessment & Plan Problem List: (1) DEMENTIA IN OTH DISEASES CLASSD ELSWHR W BEHAVIORAL DISTURB ICD Codes: F02.81 - DEMENTIA IN OTH DISEASES CLASSD ELSWHR W BEHAVIORAL DISTURB (2) OTHER ALZHEIMER'S DISEASE ICD Codes: G30.8 - OTHER ALZHEIMER'S DISEASE Assessment & Plan I agree with the first opinion. Criteria include impaired memory and executive functioning secondary to dementia Justification for Cont. Inpt. Patient would decompensate in a less restrictive setting Request HC Surrog/Guard Advoc?: Yes Guillermo Rodriguez DO Jun 10, 2017 15:08
--- NOTE | 2017-06-10 16:07 | RADRPT ---
EXAM DATE/TIME: 06/10/2017 15:41 [facility] COMPARISON: CHEST SINGLE AP, December 31, 2016, 19:59. INDICATIONS : Follow up respiratory status. MEDICAL HISTORY : None. SURGICAL HISTORY : None. ENCOUNTER: Initial ACUITY: 3 days PAIN SCORE: 6/10 LOCATION: Bilateral chest FINDINGS: Mild S-shaped scoliosis of the thoracic spine. Coarse interstitial prominence similar to previous exa m. Mild bibasilar airspace disease, improved from prior exam. Cardiomediastinal contours are stable. Remainder of the exam is unchanged. CONCLUSION: 1. Improved mild bibasilar airspace disease, likely atelectasis and scarring. 2. Otherwise, no acute abnormality or significant interval change. Donovan Salazar MD on June 10, 2017 at 16:04 Board Certified Radiologist. This report was verified electronically.
[2017-06-10] MEDS: INSULIN ASPART SUPPLEMENTAL SCALE SQ SCH ×2 (16:34→21:00)
[2017-06-10 16:43] LABS: BLOOD, URINE NEG (NEG); COMMENT (UR) CULT NOT INDICATED; CULTURE IF INDICATED CULT NOT INDICATED; GLUCOSE,URINE NEG (NEG); KETONE, URINE NEG (NEG); MUCUS URINE FEW /lpf (OCC); NITRITE,URINE NEG (NEG); URINE COLOR YELLOW (YELLW/STRAW)
[2017-06-10 18:15] VITALS: BP 122/60; PULSE 68; RESP 18; TEMP 98.7; O2SAT 99
[2017-06-10] MEDS: LATANOPROST 0.005% OPHT SOLN 2.5 ML BTL EACH EYE SCH (20:17)
[2017-06-11 05:30] VITALS: BP 133/67; PULSE 60; RESP 18; TEMP 97.4; O2SAT 99
[2017-06-11] MEDS: INSULIN ASPART SUPPLEMENTAL SCALE SQ SCH ×4 (07:39→20:36)
[2017-06-11] MEDS: PANTOPRAZOLE SOD 40 MG DELAYED RELEASE TAB PO SCH (09:06)
[2017-06-11] MEDS: TRIAMTERENE/HCTZ 37.5 MG/25 MG CAP PO SCH (09:06)
[2017-06-11] MEDS: LOSARTAN 50 MG TAB PO SCH (09:06)
[2017-06-11] MEDS: metFORMIN HCL 500 MG TAB PO SCH ×2 (09:06→18:00)
[2017-06-11] MEDS: THIAMINE HCL 100 MG TAB PO SCH (09:06)
[2017-06-11] MEDS: glyBURIDE 5 MG TAB PO SCH (09:06)
[2017-06-11] MEDS: PRAVASTATIN SOD 40 MG TAB PO SCH (09:06)
[2017-06-11] MEDS: CLOPIDOGREL 75 MG TAB PO SCH (09:06)
[2017-06-11] MEDS: CHOLECALCIFEROL (VIT D3) 1000 UNIT TAB PO SCH (09:07)
[2017-06-11] MEDS: FOLIC ACID 1 MG TAB PO SCH (09:07)
--- NOTE | 2017-06-11 14:54 | HHI.PYPN ---
Subjective Remarks Patient was seen and case discussed with nursing. Patient is pleasant and cooperative with exam. He is more social today and out of the room. He had lunch. Says he sleeping 4-5 hours. Alert and oriented 2. Insight remains for concerning the reasons for his admission. No evidence of all call withdrawal. came to visit and brought in [employer] magazine which nursing confiscated. Compliant with medications and behaving well on the unit Objective Alert: Yes [place]: Person, Place Mood: Calm Affect: Restricted Memory Intact: Comment (Poor for recent) Hallucinations: Other (negative) Delusions: No Delusion Type: Other Suicidal: Ideation (Deneis any) Homicidal: Ideation (deneis any) Insight/Judgment Poor Labs Test 06/10/17 16:00 Urine Color YELLOW Urine Turbidity CLEAR Urine pH 7.0 Urine Specific Kuna 1.016 Urine Protein 30 mg/dL Urine Glucose (UA) NEG mg/dL Urine Ketones NEG mg/dL Urine Occult Blood NEG Urine Nitrite NEG Urine Bilirubin NEG Urine Urobilinogen 2.0 MG/DL Urine Leukocyte Esterase NEG Urine WBC LESS THAN 1 /hpf Urine Mucus FEW /lpf Microscopic Urinalysis Comment CULT NOT INDICATED Date/Time Source Procedure Growth Status 06/10/17 18:00 Wound Heel Gram Stain - Final Resulted 06/10/17 18:00 Wound Heel Wound Culture Pending Resulted Vitals/IOs Vital Signs Date Time Temp Pulse Resp B/P (MAP) Pulse Ox O2 Delivery O2 Flow Rate FiO2 06/11/17 05:30 97.4 60 18 133/67 (89) 99 06/08/17 12:18 Room Air 06/08/17 05:22 2.00 Intake and Output 06/11/17 06/11/17 06/12/17 08:00 16:00 00:00 Intake Total 360 ml Balance 360 ml Assessment & Plan Problem List: (1) DEMENTIA IN OTH DISEASES CLASSD ELSWHR W BEHAVIORAL DISTURB ICD Codes: F02.81 - DEMENTIA IN OTH DISEASES CLASSD ELSWHR W BEHAVIORAL DISTURB (2) OTHER ALZHEIMER'S DISEASE ICD Codes: G30.8 - OTHER ALZHEIMER'S DISEASE Assessment & Plan Continue current treatment plan Justification for Cont. Inpt. Patient will decompensate in a less restrictive setting Request HC Surrog/Guard Advoc?: Yes Guillermo Rodriguez DO Jun 11, 2017 14:54
--- NOTE | 2017-06-11 15:17 | HHI.PR ---
Subjective Remarks Patient reports is feeling okay. He is ambulating well with the walker. Oriented to self and place only. Objective Vitals Vital Signs Date Time Temp Pulse Resp B/P (MAP) Pulse Ox O2 Delivery O2 Flow Rate FiO2 06/11/17 05:30 97.4 60 18 133/67 (89) 99 06/10/17 18:15 98.7 68 18 122/60 (80) 99 I/O 06/10/17 06/10/17 06/10/17 06/11/17 06/11/17 06/11/17 07:00 15:00 23:00 07:00 15:00 23:00 Intake Total 120 ml 240 ml 480 ml 360 ml Balance 120 ml 240 ml 480 ml 360 ml Intake Oral 120 ml 240 ml 480 ml 360 ml # Voids 2 Result Diagram: 06/07/17 1210 06/09/17 1155 Imaging Last Impressions Chest X-Ray 06/10/17 0000 Signed Impressions: Service Date/Time: Saturday, June 10, 2017 15:41 - CONCLUSION: 1. Improved mild bibasilar airspace disease, likely atelectasis and scarring. 2. Otherwise, no acute abnormality or significant interval change. Donovan Salazar MD Objective Remarks GENERAL: This is a well-nourished, well-developed patient, in no apparent distress. CARDIOVASCULAR: Normal rate and regular rhythm without murmurs, gallops, or rubs. RESPIRATORY: Good respiratory efforts. Breath sounds equal and clear to auscultation bilaterally. GASTROINTESTINAL: Abdomen soft, non-tender, non-distended. Normal active bowel sounds MUSCULOSKELETAL: Extremities without cyanosis, or edema. NEURO: Alert & Oriented to self and place. Moves all ext x4 PSYCH: Appropriate mood and affect. A/P Assessment and Plan 77-year-old male with a past medical history significant for hypertension, dyslipidemia, diabetes, COPD, neuropathy, GERD and history of alcohol abuse who presented to the ED under Silva act initiated by law-enforcement the patient got in a fight with his , took the car and drove to another county. Patient was a Silver alert. Silva act was to be lifted while in the ED however the patient's refused to accept the patient back home. Patient has since been admitted to the inpatient psychiatric unit. Hospitalist services have been consulted for medical management. Dementia with behavioral disturbances - Management per psychiatric team - Reportedly patient's recently been diagnosed with dementia by Dr. Lock but no dementia meds listed on med rec - Neurology following and has ordered MRI of the brain and cervical spine. - Hold gabapentin - UA negative. Follow-up on Thiamine, NAHOMY, RPR and MMA levels as previously ordered. Left tricep weakness Unsteady gait History of cervical fusion - Will follow-up on MRI studies as ordered by neurology - PT/OT eval/tx - Fall precautions Left foot ulcer Left toe abrasion - h/o MRSA infx left foot - wound culture - wound care Hypertension CAD - Patient is normotensive - Continue patient on losartan 100 mg daily, Triamterene/hydrochlorothiazide 37.5/25 mg 1 cap by mouth daily and Plavix 75mg daily - Monitor BP Diabetes - Continue patient on home dose of metformin and glyburide - Hemoglobin A1c 6.3 - Accu-Cheks - Insulin sliding scale - Change to heart healthy diabetic diet History of alcohol abuse - Patients had multiple admissions for alcohol intoxication - Thiamine and folate daily - CIWA protocol - Monitor for s/sxs EtOH withdrawal - Seizure protocol Neuropathy - Patient takes gabapentin at home. Recommend holding for now given patient' s decline in cognitive function and unsteady gait. COPD, not in acute exacerbation - Duonebs as needed - Monitor respiratory status HLD - Continue patient on statin therapy GERD - Continue patient on home dose of pantoprazole 40 mg daily Vitamin D deficiency - Begin by mouth supplementation - Patient will need to have level rechecked with PCP as outpatient in 3 months Hx of CAP - stable DVT prophylaxis - Patient is ambulatory Kristin Veloz MD Jun 11, 2017 15:17
[2017-06-11 18:23] VITALS: BP 101/63; PULSE 73; RESP 19; TEMP 98.6; O2SAT 99
[2017-06-11] MEDS: LATANOPROST 0.005% OPHT SOLN 2.5 ML BTL EACH EYE SCH (21:20)
[2017-06-12 05:18] VITALS: BP 133/70; PULSE 64; RESP 18; TEMP 97.5; O2SAT 100
[2017-06-12] MEDS: INSULIN ASPART SUPPLEMENTAL SCALE SQ SCH ×4 (07:48→21:00)
[2017-06-12] MEDS: FOLIC ACID 1 MG TAB PO SCH (09:08)
[2017-06-12] MEDS: PANTOPRAZOLE SOD 40 MG DELAYED RELEASE TAB PO SCH (09:08)
[2017-06-12] MEDS: LOSARTAN 50 MG TAB PO SCH (09:08)
[2017-06-12] MEDS: PRAVASTATIN SOD 40 MG TAB PO SCH (09:08)
[2017-06-12] MEDS: glyBURIDE 5 MG TAB PO SCH (09:09)
[2017-06-12] MEDS: CLOPIDOGREL 75 MG TAB PO SCH (09:09)
[2017-06-12] MEDS: metFORMIN HCL 500 MG TAB PO SCH ×2 (09:09→18:00)
[2017-06-12] MEDS: TRIAMTERENE/HCTZ 37.5 MG/25 MG CAP PO SCH (09:10)
[2017-06-12] MEDS: CHOLECALCIFEROL (VIT D3) 1000 UNIT TAB PO SCH (09:10)
[2017-06-12] MEDS: THIAMINE HCL 100 MG TAB PO SCH (09:10)
--- NOTE | 2017-06-12 14:03 | HHI.PYPN ---
Subjective Remarks Patient was seen and case discussed with nursing. Patient is pleasant and cooperative with exam. Remains on good behavior with no agitation or outbursts. Compliant with medications and tolerating it well. Alert and oriented 2. Thought process remains disorganized with poor insight into his admission Objective Alert: Yes [place]: Person, Place Mood: Calm Affect: Blunted Memory Intact: Comment (Poor for recent) Hallucinations: Other (negative) Delusions: No Delusion Type: Other Suicidal: Ideation (Deneis any) Homicidal: Ideation (deneis any) Insight/Judgment Poor Labs Date/Time Source Procedure Growth Status 06/10/17 18:00 Wound Heel Gram Stain - Final Complete 06/10/17 18:00 Wound Culture - Final S. Aureus Mrsa Complete Vitals/IOs Vital Signs Date Time Temp Pulse Resp B/P (MAP) Pulse Ox O2 Delivery O2 Flow Rate FiO2 06/12/17 05:18 97.5 64 18 133/70 (91) 100 06/08/17 12:18 Room Air Intake and Output 06/12/17 06/12/17 06/13/17 08:00 16:00 00:00 Intake Total 240 ml 120 ml Balance 240 ml 120 ml Assessment & Plan Problem List: (1) DEMENTIA IN OTH DISEASES CLASSD ELSWHR W BEHAVIORAL DISTURB ICD Codes: F02.81 - DEMENTIA IN OTH DISEASES CLASSD ELSWHR W BEHAVIORAL DISTURB (2) OTHER ALZHEIMER'S DISEASE ICD Codes: G30.8 - OTHER ALZHEIMER'S DISEASE Assessment & Plan Continue current treatment plan Justification for Cont. Inpt. Patient would decompensate in a less restrictive setting Request HC Surrog/Guard Advoc?: Yes Guillermo Rodriguez DO Jun 12, 2017 14:03
--- NOTE | 2017-06-12 14:07 | PD.WCN.NOT ---
Wound Consult Description: Received consult for bilateral diabetic foot ulcers from Doctor Meza Communicated with: MARYA Talamantes 2500 psych unit and Doctor Veloz for orders Recommendation: Please cleanse wounds to L plantar foot , L medial plantar foot and R lateral foot with normal saline or wound cleanser and apply small piece of Maxorb II ( Calcium Alginate) dressing over wound beds and secure with dry 4x4 gauze pads, rolled gauze and tape. Change dressings every 2 days or PRN.Until seen by podiatry Apply small piece of Maxorb II to small fissure between L great toe and L second toe.Weave dry gauze in between toes on L foot .Change as needed until seen by podiatry Additional Information: Patient seen on 2500 psych unit for evaluation of bilateral diabetic foot ulcers. Removed patient's socks to reveal L plantar surface Diabetic foot ulcer measuring 1 cm x 1cm Wound is covered with hyperkeratotic tissue with small opening measuring ~0.2cm x ~0.2cm x ~0.3 cm. Opening is draining scant serous /yellow drainage with mild odor.Periwound presents without induration or erythema. Cleansed wound with normal saline and left open to air for now.L medial plantar surface foot wound is smaller measuring 0.5cm x 0.5cm with 100% coverage of yellow crust. R lateral foot wound presents with 90% coverage of hyperkeratotic tissue and 10 % yellow tissue that is draining scant serous/ yellow drainage without odor.Wound measures 0.5cm x 0.5cm. Periwound is noted without erythema or induration. Small fissure is assessed between the L great toe and second toe interspace that is draining scant sanguinous drainage. Cleansed fissure with normal saline and patted dry before weaving dry gauze in between toes. Patient is diabetic and wounds appear to need debridement. Spoke with Doctor Veloz about podiatry consult. Ryanne Kwan [facility] Jun 12, 2017 14:07
[2017-06-12 14:28] LABS: ANA SCREEN NEG (NEG)
[2017-06-12 18:15] VITALS: BP 120/71; PULSE 66; RESP 18; TEMP 98.6; O2SAT 100
--- NOTE | 2017-06-12 19:54 | RADRPT ---
EXAM DATE/TIME: 06/12/2017 19:37 [facility] COMPARISON: No previous studies available for comparison. INDICATIONS : Right posterior foot ulcer MEDICAL HISTORY : Dementia. Cardiovascular disease Hypertension SURGICAL HISTORY : Cholecystectomy. ENCOUNTER: Initial ACUITY: 4 - 6 days PAIN SCORE: 0/10 LOCATION: Right foot FINDINGS: There is a focal ulcer as well as focal soft tissue swelling adjacent to the head of the right fifth metatarsal. Previous resection of the right second distal phalanx has been performed. No acute frac ture or dislocation is noted. There is an old healed fracture of the midshaft of the right third meta tarsal. CONCLUSION: 1. Focal soft-tissue swelling and ulceration adjacent to the head of the right fifth metatarsal. 2. No acute fracture or dislocation. Roosevelt May MD on June 12, 2017 at 19:49 Board Certified Radiologist. This report was verified electronically.
--- NOTE | 2017-06-12 19:56 | RADRPT ---
EXAM DATE/TIME: 06/12/2017 19:39 [facility] COMPARISON: FOOT LEFT COMPLETE ([id number]), November 21, 2016, 12:30. INDICATIONS : Left posterior foot ulcer MEDICAL HISTORY : Dementia. Cardiovascular disease Hypertension SURGICAL HISTORY : Cholecystectomy. ENCOUNTER: Initial ACUITY: 4 - 6 days PAIN SCORE: 0/10 LOCATION: Left foot FINDINGS: There is soft-tissue swelling involving the plantar aspect of the left foot in the region of the firs t metatarsophalangeal joint. There is a focal soft tissue density in the region of the swelling whic h may represent a tiny foreign body. Clinical correlation is recommended. No fracture or dislocation is noted. CONCLUSION: 1. Focal soft tissue swelling along the plantar aspect of the left first metatarsophalangeal joint wi th possible foreign body. Clinical correlation is recommended. 2. No acute fracture or dislocation. Roosevelt May MD on June 12, 2017 at 19:51 Board Certified Radiologist. This report was verified electronically.
[2017-06-12] MEDS ORDERED: GADODIAMIDE PF 287 MG/ML 5 ML VIAL (for RAD MRI) IVCONTRAST ONE (21:12)
[2017-06-12] MEDS: LATANOPROST 0.005% OPHT SOLN 2.5 ML BTL EACH EYE SCH (21:32)
--- NOTE | 2017-06-12 21:47 | RADRPT ---
EXAM DATE/TIME: 06/12/2017 20:31 [facility] COMPARISON: CT BRAIN W/O CONTRAST, March 18, 2017, 17:45. INDICATIONS : CVA. CONTRAST: 14 cc Omniscan (gadodiamide) IV MEDICAL HISTORY : Chronic obstructive pulmonary disease. Hypercholesterolemia. Carcinoma, prostate. Neuropathy. Diabete s. SURGICAL HISTORY : Prostatectomy. Fusion, cervical. Rotator cuff. Hernia repair. Bilateral feet and elbows. ENCOUNTER: Subsequent ACUITY: 3 day PAIN SCORE: 3/10 LOCATION: cranial TECHNIQUE: Multiplanar, multisequence MRI of the brain was performed both prior to and following the administrat ion of paramagnetic contrast. FINDINGS: CEREBRUM: Diffuse cerebral atrophy is noted. No evidence of midline shift, mass lesion, hemorrhage or acute inf arction. No extraaxial fluid collections are seen. The pituitary gland and suprasellar cistern are normal in configuration. WHITE MATTER: Mild periventricular and subcortical white matter small vessel ischemic changes are noted. POSTERIOR FOSSA: The cerebellum and brainstem are intact. The 4th ventricle is midline. The cerebellopontine angle is unremarkable. The cerebellar tonsils are normal in position. DIFFUSION IMAGING: No focal areas of restricted diffusion are seen. No evidence of acute infarction. EXTRACRANIAL: The visualized portions of the orbits and paranasal sinuses are unremarkable. POST-CONTRAST: No abnormal areas of parenchymal or dural enhancement. No evidence of blood-brain barrier breakdown. CONCLUSION: 1. Diffuse cerebral atrophy. 2. Mild periventricular and subcortical white matter small vessel ischemic changes bilaterally. 3. No acute infarct, acute hemorrhage, mass effect, extra-axial fluid collection or abnormal enhancin g mass lesion. Roosevelt May MD on June 12, 2017 at 21:43 Board Certified Radiologist. This report was verified electronically.
--- NOTE | 2017-06-12 22:10 | RADRPT ---
EXAM DATE/TIME: 06/12/2017 20:31 [facility] COMPARISON: CT CERVICAL SPINE W/O CONTRAST, December 31, 2016, 19:32. INDICATIONS : Myelopathy. MEDICAL HISTORY : Chronic obstructive pulmonary disease. Hypercholesterolemia. Carcinoma, prostate. Neuropathy. Diabete s. SURGICAL HISTORY : Prostatectomy. Fusion, cervical. Rotator cuff. Hernia repair. Bilateral feet and elbows. ENCOUNTER: Subsequent ACUITY: 3 day PAIN SCORE: 3/10 LOCATION: Neck TECHNIQUE: Multiplanar, multisequence MRI examination of the cervical spine was performed. FINDINGS: The patient is status post fusion from C5 through T1 which appears to be stable. Cervical spondylosi s is noted at C3-4 and C4-5. There is moderate to severe circumferential spinal stenosis and bilater al foraminal narrowing at C4-5 secondary to diffuse disc osteophyte complex and uncovertebral joint s purring bilaterally. Mild diffuse disc osteophyte complex is noted at C3-4 resulting in slight effac ement of the anterior thecal sac but no significant spinal stenosis. Moderate bilateral foraminal na rrowing is noted at this level. There is focal T2 signal hyperintensity involving the cervical cord at the C6 level which may represent focal myelomalacia. No spinal stenosis is noted at this level. There is straightening of the normal cervical lordosis. There is no acute fracture or prevertebral s oft tissue swelling. CONCLUSION: 1. Moderate to severe spinal stenosis and bilateral foraminal narrowing at C4-5. 2. Moderate bilateral foraminal narrowing at C3-4. 3. Focal T2 signal hyperintensity involving the cervical cord at the C6 level likely representing foc al myelomalacia without cord compression at this time. 4. Cervical fusion is stable from C5 through T1. 5. Straightening of the normal cervical lordosis. 6. No acute fracture or prevertebral soft tissue swelling. Roosevelt May MD on June 12, 2017 at 21:46 Board Certified Radiologist. This report was verified electronically.
[2017-06-13 05:54] VITALS: BP 121/67; PULSE 70; RESP 16; TEMP 98.1; O2SAT 95
[2017-06-13] MEDS: INSULIN ASPART SUPPLEMENTAL SCALE SQ SCH ×4 (08:00→20:34)
[2017-06-13] MEDS: CHOLECALCIFEROL (VIT D3) 1000 UNIT TAB PO SCH (09:22)
[2017-06-13] MEDS: glyBURIDE 5 MG TAB PO SCH (09:23)
[2017-06-13] MEDS: metFORMIN HCL 500 MG TAB PO SCH ×2 (09:23→18:22)
[2017-06-13] MEDS: PRAVASTATIN SOD 40 MG TAB PO SCH (09:24)
[2017-06-13] MEDS: CLOPIDOGREL 75 MG TAB PO SCH (09:24)
[2017-06-13] MEDS: THIAMINE HCL 100 MG TAB PO SCH (09:24)
[2017-06-13] MEDS: PANTOPRAZOLE SOD 40 MG DELAYED RELEASE TAB PO SCH (09:24)
[2017-06-13] MEDS: TRIAMTERENE/HCTZ 37.5 MG/25 MG CAP PO SCH (09:24)
[2017-06-13] MEDS: FOLIC ACID 1 MG TAB PO SCH (09:24)
[2017-06-13] MEDS: LOSARTAN 50 MG TAB PO SCH (09:24)
--- NOTE | 2017-06-13 16:54 | HHI.PYPN ---
Subjective Remarks Patient's seen for follow up, chart reviewed. Patient is found lying in hospital bed, cooperative. Patient was noted to be attended to call his several times while on the unit. As per nursing report and discussion patient has been doing okay had been compliant with medications. Patient states that she's been feeling weak in general even prior to his hospitalization. He states he has been having adequate appetite, probably urination or bowel movement, states that his mood has been "alright" denies feeling sad or depressed and also denying any perceptual disturbances. Patient also denies any paranoid delusions at this time. Patient noted to be oriented to person, place, and to year but not to month or season. Patient states that he has spoken to his several days ago and reports would like to be discharged back to his home. Patient aware that he will be taken to a Silva act court tomorrow. Review of Systems Except as stated in HPI: all other systems reviewed are Neg Objective Alert: Yes [place]: Person, Place Mood: Calm Affect: Restricted Memory Intact: Comment (Poor for recent) Hallucinations: Other (negative) Delusions: No Delusion Type: Other Suicidal: Ideation (Deneis any) Homicidal: Ideation (deneis any) Insight/Judgment Poor insight, impulse control is fair and judgment poor Labs Date/Time Source Procedure Growth Status 06/10/17 18:00 Wound Heel Gram Stain - Final Complete 06/10/17 18:00 Wound Culture - Final S. Aureus Mrsa Complete Vitals/IOs Vital Signs Date Time Temp Pulse Resp B/P (MAP) Pulse Ox O2 Delivery O2 Flow Rate FiO2 06/13/17 05:54 98.1 70 16 121/67 (85) 95 Intake and Output 06/13/17 06/13/17 06/14/17 08:00 16:00 00:00 Intake Total 240 ml Balance 240 ml Assessment & Plan Problem List: (1) DEMENTIA IN OTH DISEASES CLASSD ELSWHR W BEHAVIORAL DISTURB ICD Codes: F02.81 - DEMENTIA IN OTH DISEASES CLASSD ELSWHR W BEHAVIORAL DISTURB (2) OTHER ALZHEIMER'S DISEASE ICD Codes: G30.8 - OTHER ALZHEIMER'S DISEASE Assessment & Plan Patient at this time continues to have apparent cognitive deficits with poor memory. Patient will be started on Memantine 5 mg by mouth daily for moderate to severe dementia. Monitor medication response and adverse drug reactions. Patient will present to [facility] court tomorrow. Discharge planning in progress. Justification for Cont. Inpt. Patient at risk for further decompensation if at a lower level of care Request HC Surrog/Guard Advoc?: Yes Isidoro Odonnell MD Jun 13, 2017 16:54
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
[2017-06-13] MEDS: MEMANTINE HCL 5 MG TAB PO SCH (18:23)
[2017-06-13 18:44] VITALS: BP 126/82; PULSE 82; RESP 18; TEMP 97.6; O2SAT 98
[2017-06-13] MEDS: hydrOXYzine HCL 50 MG TAB PO PRN (20:35)
[2017-06-13] MEDS: LATANOPROST 0.005% OPHT SOLN 2.5 ML BTL EACH EYE SCH (20:35)
[2017-06-14 05:57] VITALS: BP 147/70; PULSE 65; RESP 16; TEMP 97.2; O2SAT 97
[2017-06-14] MEDS: INSULIN ASPART SUPPLEMENTAL SCALE SQ SCH ×4 (08:00→20:42)
[2017-06-14] MEDS: glyBURIDE 5 MG TAB PO SCH ×2 (08:21→09:00)
[2017-06-14] MEDS: metFORMIN HCL 500 MG TAB PO SCH ×3 (08:21→18:00)
[2017-06-14] MEDS: CLOPIDOGREL 75 MG TAB PO SCH (09:03)
[2017-06-14] MEDS: THIAMINE HCL 100 MG TAB PO SCH (09:03)
[2017-06-14] MEDS: CHOLECALCIFEROL (VIT D3) 1000 UNIT TAB PO SCH (09:03)
[2017-06-14] MEDS: PANTOPRAZOLE SOD 40 MG DELAYED RELEASE TAB PO SCH (09:03)
[2017-06-14] MEDS: FOLIC ACID 1 MG TAB PO SCH (09:04)
[2017-06-14] MEDS: LOSARTAN 50 MG TAB PO SCH (09:04)
[2017-06-14] MEDS: PRAVASTATIN SOD 40 MG TAB PO SCH (09:04)
[2017-06-14] MEDS: MEMANTINE HCL 5 MG TAB PO SCH (09:04)
[2017-06-14] MEDS: TRIAMTERENE/HCTZ 37.5 MG/25 MG CAP PO SCH (09:04)
--- NOTE | 2017-06-14 16:17 | HHI.PYPN ---
Subjective Remarks Patient was taken to mental health court today which during proceeding stated that he was believes remain on the hospital to allow treatment team to find appropriate placement for him. Continues with sister by [employer] in mental health court today. Patient seen later on the unit for follow-up and noted to be calm and cooperative interview. Patient states that his mood is "alright", reports he drinking well denies any adverse drug reactions from current treatment regimen. Patient states that he sleeping well as well. Patient initially did not recall having done court this morning but was reminded of the details from the proceedings which she then recalled. Patient alert and oriented only to person and year. Patient continued to be noted to be confused at times a pleasant. Review of Systems Except as stated in HPI: all other systems reviewed are Neg Objective Alert: Yes [place]: Person, Place Mood: Calm Affect: Restricted Memory Intact: Comment (impaired) Hallucinations: Other (negative) Delusions: No Delusion Type: Other Suicidal: Ideation (Deneis any) Homicidal: Ideation (deneis any) Insight/Judgment Poor insight, fair impulse control, limited judgment Labs Date/Time Source Procedure Growth Status 06/10/17 18:00 Wound Heel Gram Stain - Final Complete 06/10/17 18:00 Wound Culture - Final S. Aureus Mrsa Complete Vitals/IOs Vital Signs Date Time Temp Pulse Resp B/P (MAP) Pulse Ox O2 Delivery O2 Flow Rate FiO2 06/14/17 05:57 97.2 65 16 147/70 (95) 97 Intake and Output 06/14/17 06/14/17 06/15/17 08:00 16:00 00:00 Intake Total 360 ml Balance 360 ml Assessment & Plan Problem List: (1) DEMENTIA IN OTH DISEASES CLASSD ELSWHR W BEHAVIORAL DISTURB ICD Codes: F02.81 - DEMENTIA IN OTH DISEASES CLASSD ELSWHR W BEHAVIORAL DISTURB (2) OTHER ALZHEIMER'S DISEASE ICD Codes: G30.8 - OTHER ALZHEIMER'S DISEASE Assessment & Plan Patient at this time continues to have difficulty remembering although appears to be able to perform his ADLs. Patient tolerating medication regimen with no reported adverse drug reactions. Patient attended mental health court today which a continuance was issued by [employer] today. She became actively attempted to find appropriate placement for patient. Discharge planning in progress Justification for Cont. Inpt. Patient at risk for further decompensation if at a lower level of care Request HC Surrog/Guard Advoc?: Yes Isidoro Odonnell MD Jun 14, 2017 16:17
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
[2017-06-14 16:45] VITALS: BP 116/71; PULSE 69; RESP 17; TEMP 97.3
[2017-06-14] MEDS: TETRACYCLINE HCL 250 MG CAP PO SCH ×2 (18:00→23:58)
[2017-06-14] MEDS: LATANOPROST 0.005% OPHT SOLN 2.5 ML BTL EACH EYE SCH (20:42)
[2017-06-15] MEDS: TETRACYCLINE HCL 250 MG CAP PO SCH ×3 (04:54→18:00)
[2017-06-15 06:11] VITALS: BP 139/67; PULSE 69; RESP 18; TEMP 97.3; O2SAT 99
[2017-06-15] MEDS: INSULIN ASPART SUPPLEMENTAL SCALE SQ SCH ×4 (08:00→21:00)
[2017-06-15] MEDS: FOLIC ACID 1 MG TAB PO SCH (09:00)
[2017-06-15] MEDS: TRIAMTERENE/HCTZ 37.5 MG/25 MG CAP PO SCH (09:00)
--- NOTE | 2017-06-15 09:45 | HHI.PR ---
Subjective Remarks mood good Objective Vital Signs Date Time Temp Pulse Resp B/P (MAP) Pulse Ox O2 Delivery O2 Flow Rate FiO2 06/15/17 06:11 97.3 69 18 139/67 (91) 99 06/14/17 16:45 97.3 69 17 116/71 (86) I/O 06/14/17 06/14/17 06/14/17 06/15/17 06/15/17 06/15/17 07:00 15:00 23:00 07:00 15:00 23:00 Intake Total 360 ml 1320 ml Balance 360 ml 1320 ml Intake Oral 360 ml 1320 ml # Voids 2 4 1 # Bowel Movements 1 Objective Remarks awke alert good mood face sym normal speech knows yr not month Assessment and Plan Assessment and Plan imp mri c spine old myelomalacia no sign cord compression now brain mri central and cortical atrophy vents are generous but gait not cw nph more likey from atrophy labs nl he has some dementia? etoh he can fu with me in office for memory med rx 4 weeks after dc i will sign off Soren Workman MD Jun 15, 2017 09:45
[2017-06-15] MEDS: THIAMINE HCL 100 MG TAB PO SCH (10:24)
[2017-06-15] MEDS: PRAVASTATIN SOD 40 MG TAB PO SCH (10:24)
[2017-06-15] MEDS: CLOPIDOGREL 75 MG TAB PO SCH (10:24)
[2017-06-15] MEDS: LOSARTAN 50 MG TAB PO SCH (10:25)
[2017-06-15] MEDS: PANTOPRAZOLE SOD 40 MG DELAYED RELEASE TAB PO SCH (10:25)
[2017-06-15] MEDS: MEMANTINE HCL 5 MG TAB PO SCH (10:25)
[2017-06-15] MEDS: metFORMIN HCL 500 MG TAB PO SCH ×2 (10:25→18:00)
[2017-06-15] MEDS: CHOLECALCIFEROL (VIT D3) 1000 UNIT TAB PO SCH (10:25)
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
--- NOTE | 2017-06-15 16:03 | PD.ID.CON ---
History of Present Illness Service ID Consult Requested By Dr Mahmood Reason for Consult L foot infection, MRSA Primary Care Physician Jefferson Alvarez MD Diagnoses: History of Present Illness Pt is a 77 yo diabetic male with early dementia admitted as a Silva ActHe is poor historian and history is obtained from the chart He has been having edematous and erythematous areas on 1 st MT head and 1 st web space He could not quantify to me how long he has those lesions His medx records showing recent clindamycin admisnistarion His foot Xrayshowed edema and possible foreign body UClture was done and showed MRSA He was started on tetracycline He has no fever, chills, nightsweats 'Jis WBC is normal Review of Systems ROS Limitations: Uncooperative, Poor Historian Past Family Social History Allergies: Coded Allergies: *MDRO Multi-Drug Resistant Organism (Verified Adverse Reaction, Unknown, ) 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 Past Medical History Hypertension CAD Diabetes Neuropathy Hyperlipidemia GERD History of prostate cancer Previous cervical fusion Previous pancreatitis History of MRSA infection left foot Glaucoma Past Surgical History C56 fusion Cholecystectomy Cardiac catheterization 2008 Abdominal hernia repair Left rotator cuff repair Active Ordered Medications Medications where reviewed in EMR Antibiotics Include: tetracycline Family History reviewed and non contributory Social History Patient has a history of tobacco use of one pack per day starting when he was a teenager but quit 1991. Patient reports EtOH consumption of 6-7 beers daily. Patient denies any illicit drug use. Patient is lives with his . He is still currently driving. Physical Exam Vital Signs Vital Signs Date Time Temp Pulse Resp B/P (MAP) Pulse Ox O2 Delivery O2 Flow Rate FiO2 06/15/17 06:11 97.3 69 18 139/67 (91) 99 06/14/17 16:45 97.3 69 17 116/71 (86) Physical Exam CONSTITUTIONAL/GENERAL: This is an adequately nourished patient, in no apparent distress. TUBES/LINES/DRAINS: SKIN: No jaundice, rashes, or lesions. Skin temperature appropriate. Not diaphoretic. HEAD: Atraumatic. Normocephalic. EYES: Pupils equal and round and reactive. Extraocular motions intact. No scleral icterus. No injection or drainage. Fundi not examined. ENT: Hearing grossly normal. Nose without bleeding or purulent drainage. Oral mucosae without visible erythema, exudates, masses, or lesions. NECK: Trachea midline. Supple, nontender. CARDIOVASCULAR: Regular rate and rhythm without murmurs, gallops, or rubs. No JVD. Peripheral pulses symmetric. RESPIRATORY/CHEST: Symmetric, unlabored respirations. Clear to auscultation. Breath sounds equal bilaterally. No wheezes, rales, or rhonchi. GASTROINTESTINAL: Abdomen soft, non-tender, nondistended. No hepato-splenomegaly , or palpable masses. No guarding. Bowel sounds present. MUSCULOSKELETAL: Extremities without clubbing, cyanosis, or edema. No mottling or clubbing. R foot with small dry ulcer with dry eschar over 5 th MT head L foot with macerated draining 1st web area plantar ulcers x 2 with dry eschars - @ 1 st MR head and mid plantar and mild edema and erythema of 1 st MT area no ascending cellulits or lymphangitis NEUROLOGICAL: Awake and alert. Motor and sensory grossly within normal limits. Follows commands. Clear speech. Moves all extremities. PSYCHIATRIC: calm, but irritable, not cooperative Laboratory Date/Time Source Procedure Growth Status 06/10/17 18:00 Wound Heel Gram Stain - Final Complete 06/10/17 18:00 Wound Culture - Final S. Aureus Mrsa Complete Imaging Last Impressions Cervical Spine MRI 06/12/17 1550 Signed Impressions: Service Date/Time: Monday, June 12, 2017 20:31 - CONCLUSION: 1. Moderate to severe spinal stenosis and bilateral foraminal narrowing at C4-5. 2. Moderate bilateral foraminal narrowing at C3-4. 3. Focal T2 signal hyperintensity involving the cervical cord at the C6 level likely representing focal myelomalacia without cord compression at this time. 4. Cervical fusion is stable from C5 through T1. 5. Straightening of the normal cervical lordosis. 6. No acute fracture or prevertebral soft tissue swelling. Roosevelt May MD Brain MRI 06/12/17 1550 Signed Impressions: Service Date/Time: Monday, June 12, 2017 20:31 - CONCLUSION: 1. Diffuse cerebral atrophy. 2. Mild periventricular and subcortical white matter small vessel ischemic changes bilaterally. 3. No acute infarct, acute hemorrhage, mass effect, extra-axial fluid collection or abnormal enhancing mass lesion. Roosevelt May MD Foot X-Ray 06/12/17 0000 Signed Impressions: Service Date/Time: Monday, June 12, 2017 19:37 - CONCLUSION: 1. Focal soft-tissue swelling and ulceration adjacent to the head of the right fifth metatarsal. 2. No acute fracture or dislocation. Roosevelt May MD Chest X-Ray 06/10/17 0000 Signed Impressions: Service Date/Time: Saturday, June 10, 2017 15:41 - CONCLUSION: 1. Improved mild bibasilar airspace disease, likely atelectasis and scarring. 2. Otherwise, no acute abnormality or significant interval change. Donovan Salazar MD Assessment and Plan Assessment and Plan DFI, L foot 1 st MT head and 1st web space, MRSA S clinda ? foreign body Dementia admitted to psych for Silva Actg MRI L foot dc tetracyclin start Vesta Rhodes MD Jun 15, 2017 16:03
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
--- NOTE | 2017-06-15 18:26 | HHI.PYPN ---
Subjective Remarks Patient seen for follow up; chart reviewed. Patient was seen lying on hospital bed, calm and cooperative with interview. He states feeling "alright", reports eating and drinking well, no problem with sleep, tolerating medications well, mood being "good". He doesn't recall having spoken to his over the phone yesterday but was reminded by nurse. Review of Systems Except as stated in HPI: all other systems reviewed are Neg Objective Alert: Yes [place]: Person, Place Mood: Calm Affect: Appropriate Memory Intact: Comment (impaired) Hallucinations: Other (negative) Delusions: No Delusion Type: Other Suicidal: Ideation (Deneis any) Homicidal: Ideation (deneis any) Insight/Judgment poor insight, fair impulse control, limited judgment Labs Date/Time Source Procedure Growth Status 06/10/17 18:00 Wound Heel Gram Stain - Final Complete 06/10/17 18:00 Wound Culture - Final S. Aureus Mrsa Complete Vitals/IOs Vital Signs Date Time Temp Pulse Resp B/P (MAP) Pulse Ox O2 Delivery O2 Flow Rate FiO2 06/15/17 06:11 97.3 69 18 139/67 (91) 99 Assessment & Plan Problem List: (1) DEMENTIA IN OTH DISEASES CLASSD ELSWHR W BEHAVIORAL DISTURB ICD Codes: F02.81 - DEMENTIA IN OTH DISEASES CLASSD ELSWHR W BEHAVIORAL DISTURB (2) OTHER ALZHEIMER'S DISEASE ICD Codes: G30.8 - OTHER ALZHEIMER'S DISEASE Assessment & Plan Patient continues to be confused and forgetful of recent events. Patient has not had any behavioral dyscontrol. Continue current treatment. Awaiting to find placement. Discharge planning in progress. Justification for Cont. Inpt. At risk for further decompensation if at lower level of care. Request HC Surrog/Guard Advoc?: Yes Isidoro Odonnell MD Jun 15, 2017 18:26
[2017-06-15] MEDS: LATANOPROST 0.005% OPHT SOLN 2.5 ML BTL EACH EYE SCH (22:23)
[2017-06-16] MEDS: TETRACYCLINE HCL 250 MG CAP PO SCH (06:00)
[2017-06-16 06:30] VITALS: BP 114/58; PULSE 75; RESP 18; TEMP 97.2
[2017-06-16] MEDS: INSULIN ASPART SUPPLEMENTAL SCALE SQ SCH ×4 (07:36→21:00)
[2017-06-16] MEDS: PANTOPRAZOLE SOD 40 MG DELAYED RELEASE TAB PO SCH (09:00)
[2017-06-16] MEDS: TRIAMTERENE/HCTZ 37.5 MG/25 MG CAP PO SCH (09:00)
[2017-06-16] MEDS: CLINDAMYCIN 150 MG CAP PO SCH ×3 (10:04→22:10)
[2017-06-16] MEDS: THIAMINE HCL 100 MG TAB PO SCH (10:04)
[2017-06-16] MEDS: MEMANTINE HCL 5 MG TAB PO SCH (10:04)
[2017-06-16] MEDS: FOLIC ACID 1 MG TAB PO SCH (10:04)
[2017-06-16] MEDS: metFORMIN HCL 500 MG TAB PO SCH ×2 (10:05→17:59)
[2017-06-16] MEDS: CHOLECALCIFEROL (VIT D3) 1000 UNIT TAB PO SCH (10:05)
[2017-06-16] MEDS: PRAVASTATIN SOD 40 MG TAB PO SCH (10:05)
[2017-06-16] MEDS: CLOPIDOGREL 75 MG TAB PO SCH (10:05)
[2017-06-16] MEDS: LOSARTAN 50 MG TAB PO SCH (10:06)
--- NOTE | 2017-06-16 14:26 | HHI.PYPN ---
Subjective Remarks Patient seen for follow up; chart reviewed. Patient reports feeling "good", noted to be in good spirits. He states feeling well, with no physical complaints, tolerating medications well. He has not spoken to his recently but is aware that she is recovering from a recent hip fracture. Review of Systems Except as stated in HPI: all other systems reviewed are Neg Objective Alert: Yes [place]: Person, Place Mood: Calm Affect: Appropriate Memory Intact: Comment (impaired) Hallucinations: Other (negative) Delusions: No Delusion Type: Other Suicidal: Ideation (Deneis any) Homicidal: Ideation (deneis any) Insight/Judgment poor insight, fair impulse control and judgment Labs Date/Time Source Procedure Growth Status 06/10/17 18:00 Wound Heel Gram Stain - Final Complete 06/10/17 18:00 Wound Culture - Final S. Aureus Mrsa Complete Vitals/IOs Vital Signs Date Time Temp Pulse Resp B/P (MAP) Pulse Ox O2 Delivery O2 Flow Rate FiO2 06/16/17 06:30 97.2 75 18 114/58 (76) 06/15/17 06:11 99 Intake and Output 06/16/17 06/16/17 06/17/17 08:00 16:00 00:00 Intake Total 480 ml Balance 480 ml Assessment & Plan Problem List: (1) DEMENTIA IN OTH DISEASES CLASSD ELSWHR W BEHAVIORAL DISTURB ICD Codes: F02.81 - DEMENTIA IN OTH DISEASES CLASSD ELSWHR W BEHAVIORAL DISTURB (2) OTHER ALZHEIMER'S DISEASE ICD Codes: G30.8 - OTHER ALZHEIMER'S DISEASE Assessment & Plan Patient with no behavioral dyscontrol, compliant with treatment. Continue current treatment. Podiatry reconsulted to complete debridement of feet; equipment requested acquired. Discharge planning in progress. Patient likely to be discharged early next week as facility has already accepted him. Justification for Cont. Inpt. At risk for further decompensation if at lower level of care. Request HC Surrog/Guard Advoc?: Yes Isidoro Odonnell MD Jun 16, 2017 14:25
[2017-06-16] MEDS ORDERED: GADODIAMIDE PF 287 MG/ML 5 ML VIAL (for RAD MRI) IVCONTRAST ONE (17:43)
[2017-06-16] MEDS: LATANOPROST 0.005% OPHT SOLN 2.5 ML BTL EACH EYE SCH (22:10)
[2017-06-17] MEDS: CLINDAMYCIN 150 MG CAP PO SCH ×4 (03:30→21:52)
[2017-06-17 06:15] VITALS: BP 108/64; PULSE 88; RESP 18; TEMP 98; O2SAT 95
[2017-06-17] MEDS: INSULIN ASPART SUPPLEMENTAL SCALE SQ SCH ×4 (08:00→21:00)
[2017-06-17] MEDS: PANTOPRAZOLE SOD 40 MG DELAYED RELEASE TAB PO SCH (10:04)
[2017-06-17] MEDS: LOSARTAN 50 MG TAB PO SCH (10:04)
[2017-06-17] MEDS: CHOLECALCIFEROL (VIT D3) 1000 UNIT TAB PO SCH (10:05)
[2017-06-17] MEDS: FOLIC ACID 1 MG TAB PO SCH (10:05)
[2017-06-17] MEDS: metFORMIN HCL 500 MG TAB PO SCH ×2 (10:05→18:21)
[2017-06-17] MEDS: MEMANTINE HCL 5 MG TAB PO SCH (10:05)
[2017-06-17] MEDS: CLOPIDOGREL 75 MG TAB PO SCH (10:05)
[2017-06-17] MEDS: THIAMINE HCL 100 MG TAB PO SCH (10:06)
[2017-06-17] MEDS: TRIAMTERENE/HCTZ 37.5 MG/25 MG CAP PO SCH (10:06)
[2017-06-17] MEDS: PRAVASTATIN SOD 40 MG TAB PO SCH (10:06)
--- NOTE | 2017-06-17 17:06 | HHI.PYPN ---
Subjective Remarks Pt seen and discussed with staff. He was irritable with staff this morning and pushed his walker on the ground. He has been calm and pleasant this afternoon. Compliant with medications. No SI/HI Objective Alert: Yes [place]: Person, Place Mood: Calm Affect: Appropriate Memory Intact: Comment (impaired) Hallucinations: Other (negative) Delusions: No Delusion Type: Other Suicidal: Ideation (Deneis any) Homicidal: Ideation (deneis any) Insight/Judgment poor Labs Date/Time Source Procedure Growth Status 06/10/17 18:00 Wound Heel Gram Stain - Final Complete 06/10/17 18:00 Wound Culture - Final S. Aureus Mrsa Complete Vitals/IOs Vital Signs Date Time Temp Pulse Resp B/P (MAP) Pulse Ox O2 Delivery O2 Flow Rate FiO2 06/17/17 06:15 98.0 88 18 108/64 (79) 95 Intake and Output 06/17/17 06/17/17 06/18/17 08:00 16:00 00:00 Intake Total 240 ml Balance 240 ml Assessment & Plan Problem List: (1) DEMENTIA IN OTH DISEASES CLASSD ELSWHR W BEHAVIORAL DISTURB ICD Codes: F02.81 - DEMENTIA IN OTH DISEASES CLASSD ELSWHR W BEHAVIORAL DISTURB (2) OTHER ALZHEIMER'S DISEASE ICD Codes: G30.8 - OTHER ALZHEIMER'S DISEASE Assessment & Plan Continue current tx plan. Estimated LOS: days Justification for Cont. Inpt. risk of decompensation Request HC Surrog/Guard Advoc?: Yes Federica Pelaez MD Jun 17, 2017 17:06
[2017-06-17 18:00] VITALS: BP 132/65; PULSE 71; RESP 17; TEMP 98
[2017-06-17] MEDS: LATANOPROST 0.005% OPHT SOLN 2.5 ML BTL EACH EYE SCH (21:53)
[2017-06-18] MEDS: CLINDAMYCIN 150 MG CAP PO SCH ×4 (03:31→21:05)
[2017-06-18] MEDS: INSULIN ASPART SUPPLEMENTAL SCALE SQ SCH ×4 (08:00→21:00)
[2017-06-18] MEDS: LOSARTAN 50 MG TAB PO SCH (09:00)
[2017-06-18] MEDS: TRIAMTERENE/HCTZ 37.5 MG/25 MG CAP PO SCH (09:00)
[2017-06-18 10:11] VITALS: BP 109/59
[2017-06-18] MEDS: THIAMINE HCL 100 MG TAB PO SCH (10:15)
[2017-06-18] MEDS: PANTOPRAZOLE SOD 40 MG DELAYED RELEASE TAB PO SCH (10:16)
[2017-06-18] MEDS: CHOLECALCIFEROL (VIT D3) 1000 UNIT TAB PO SCH (10:16)
[2017-06-18] MEDS: metFORMIN HCL 500 MG TAB PO SCH ×2 (10:16→18:46)
[2017-06-18] MEDS: CLOPIDOGREL 75 MG TAB PO SCH (10:17)
[2017-06-18] MEDS: MEMANTINE HCL 5 MG TAB PO SCH (10:17)
[2017-06-18] MEDS: FOLIC ACID 1 MG TAB PO SCH (10:18)
[2017-06-18] MEDS: PRAVASTATIN SOD 40 MG TAB PO SCH (10:18)
--- NOTE | 2017-06-18 11:14 | HHI.PYPN ---
Subjective Remarks Pt seen and discussed with staff. He has been calm and cooperative this morning. He is more oriented today. Compliant with medications and denies side effects. Less irritable today. No SI/HI Objective Alert: Yes [place]: Person, Place Mood: Calm Affect: Appropriate Memory Intact: Comment (impaired) Hallucinations: Other (negative) Delusions: No Delusion Type: Other Suicidal: Ideation (Deneis any) Homicidal: Ideation (deneis any) Insight/Judgment poor Labs Date/Time Source Procedure Growth Status 06/10/17 18:00 Wound Heel Gram Stain - Final Complete 06/10/17 18:00 Wound Culture - Final S. Aureus Mrsa Complete Vitals/IOs Vital Signs Date Time Temp Pulse Resp B/P (MAP) Pulse Ox O2 Delivery O2 Flow Rate FiO2 06/18/17 10:11 109/59 (76) 06/17/17 18:00 98.0 71 17 06/17/17 06:15 95 Intake and Output 06/18/17 06/18/17 06/18/17 07:59 15:59 23:59 Intake Total 0 ml Balance 0 ml Assessment & Plan Problem List: (1) DEMENTIA IN OTH DISEASES CLASSD ELSWHR W BEHAVIORAL DISTURB ICD Codes: F02.81 - DEMENTIA IN OTH DISEASES CLASSD ELSWHR W BEHAVIORAL DISTURB (2) OTHER ALZHEIMER'S DISEASE ICD Codes: G30.8 - OTHER ALZHEIMER'S DISEASE Assessment & Plan Continue current tx plan. Estimated LOS: days Justification for Cont. Inpt. risk of decompensation Request HC Surrog/Guard Advoc?: Yes Federica Pelaez MD Jun 18, 2017 11:14
--- NOTE | 2017-06-18 12:25 | PD.POD ---
Subjective Podiatric Problems LATE ENTRY: PATIENT SEEN 06/17 10am Bilateral foot lesions and calluses. Pt denies any pain to the feet. He denies any n/v/f/h/c/sob. Pain score: 0 Past Med/Surg/Social History Social History Smoking Status: Former Smoker Objective Vital Signs Vital Signs Date Time Temp Pulse Resp B/P (MAP) Pulse Ox O2 Delivery O2 Flow Rate FiO2 06/18/17 10:11 109/59 (76) 06/17/17 18:00 98.0 71 17 132/65 (87) Coded Allergies: *MDRO Multi-Drug Resistant Organism (Verified Adverse Reaction, Unknown, ) 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 Exam-Podiatry Remarks After debridement the following lesions were noted: Right lateral 5th met head partial thickness ulcer with mixed wound bed, 1.0cm x 1.0cm x 0, no drainage, no erythema, heavy morales wound callusing Left submet 1 ulcer full thickness 0.7cm x 0.7cmx 0.2cm, + mild serosanginous drainage, +malodor, no deep probing, no exposed bone or tendon, no erythema Left submet 2 ulcer full thickness (7mm shard of glass removed from this site) 5mm x 5mm x7mm, granular wound bed, no erythema, no deep probing Left lateral hallux small ulceration with granular tissue and no signs of infection Vasc/Neuro/Bio are unchanged since initial consultation. Assessment & Plan A/P 1)Bilateral stage I and II foot ulcerations, no cellulitis appreciated 2)Removal of foreign body from left foot and wound debridements 06/17/17 -daily wound care as ordered -pt will be challenging to offload due to dementia, try to reinforce no bare feet -ID following, ordered MRI -will cont to follow Kaelyn Saez DPM Jun 18, 2017 12:25
[2017-06-18] MEDS: BACITRACIN TOP OINT 15 GM TUBE TOPICAL SCH (12:30)
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
--- NOTE | 2017-06-18 21:02 | RADRPT ---
EXAM DATE/TIME: 06/16/2017 17:16 [facility] COMPARISON: FOOT LEFT COMPLETE ([id number]), June 12, 2017, 19:39. MRI FOOT LEFT W & W/O CONTRAST, November 23, 017, 12:59. INDICATIONS : Infection fist metatarsal phalangeal joint. CONTRAST: 14 cc Omniscan (gadodiamide) IV MEDICAL HISTORY : Chronic obstructive pulmonary disease. Diabetes mellitus type 2. Carcinoma, prostate. SURGICAL HISTORY : Prostatectomy. Fusion, cervical. Inguinal hernia repair. ENCOUNTER: Initial ACUITY: 1 week PAIN SCORE: 0/10 LOCATION: Left foot TECHNIQUE: Multiplanar, multisequence MRI examination was performed without contrast and after the intravenous a dministration of gadolinium. FINDINGS: There is normal marrow signal in the bony structures with no marrow edema. There is a small focal ulc eration along the plantar surface at the level of the first metatarsal. Adjacent to the ulcer is a fo jeffrey area of bright signal on the IR sequences which extends into the flexor digitorum brevis muscle a t least 1 cm deep to the skin surface. This area demonstrates enhancement after gadolinium administra tion and is consistent with deep infection. This is not rest present a focal abscess. There are no ot her focal abnormalities. CONCLUSION: Focal ulceration with deep infection and no abscess at this time. There is no evidenc e of osteomyelitis. Adam Ellison MD on June 18, 2017 at 20:53 Board Certified Radiologist. This report was verified electronically.
[2017-06-18] MEDS: LATANOPROST 0.005% OPHT SOLN 2.5 ML BTL EACH EYE SCH (21:05)
--- NOTE | 2017-06-18 22:03 | HHI.PR ---
Addendum to Inpatient Note Additional Information dw Dr Kaelyn Saez She removed a piece of glass from R foot Not probbing to the bone, no clinical e/o osteomyelitis - MRI cancelled -cont oral clindamycin x 14 days total Vesta Leger MD Jun 18, 2017 22:03
[2017-06-19] MEDS: CLINDAMYCIN 150 MG CAP PO SCH ×4 (03:15→21:00)
[2017-06-19 07:06] VITALS: BP 134/65; PULSE 74; RESP 16; TEMP 97.9; O2SAT 97
[2017-06-19] MEDS: INSULIN ASPART SUPPLEMENTAL SCALE SQ SCH ×4 (07:56→21:00)
[2017-06-19] MEDS: TRIAMTERENE/HCTZ 37.5 MG/25 MG CAP PO SCH (09:00)
[2017-06-19] MEDS: BACITRACIN TOP OINT 15 GM TUBE TOPICAL SCH (09:00)
[2017-06-19] MEDS: CLOPIDOGREL 75 MG TAB PO SCH (09:26)
[2017-06-19] MEDS: PANTOPRAZOLE SOD 40 MG DELAYED RELEASE TAB PO SCH (09:26)
[2017-06-19] MEDS: metFORMIN HCL 500 MG TAB PO SCH ×2 (09:26→17:49)
[2017-06-19] MEDS: LOSARTAN 50 MG TAB PO SCH (09:26)
[2017-06-19] MEDS: FOLIC ACID 1 MG TAB PO SCH (09:26)
[2017-06-19] MEDS: THIAMINE HCL 100 MG TAB PO SCH (09:27)
[2017-06-19] MEDS: MEMANTINE HCL 5 MG TAB PO SCH (09:27)
[2017-06-19] MEDS: CHOLECALCIFEROL (VIT D3) 1000 UNIT TAB PO SCH (09:27)
[2017-06-19] MEDS: PRAVASTATIN SOD 40 MG TAB PO SCH (09:27)
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
[2017-06-19 17:16] VITALS: BP 149/70; PULSE 70; RESP 17; TEMP 98.6; O2SAT 99
--- NOTE | 2017-06-19 17:21 | HHI.PYPN ---
Subjective Remarks Patient seen for follow-up, chart reviewed. Patient found lying on hospital bed , calm and cooperative with interview. Patient oriented to person and place only. He states that he is feeling "alright", no behavioral dyscontrol, adherent to treatment. Patient reports having had podiatry perform debridement and was noted to be pleased that there is a living facility that he will be discharged to this week to. He mentions having spoken to his who is supportive. Review of Systems Except as stated in HPI: all other systems reviewed are Neg Objective Alert: Yes [place]: Person, Place Mood: Calm Affect: Appropriate Memory Intact: Comment (impaired) Hallucinations: Other (denies) Delusions: No Delusion Type: Other (denies) Suicidal: Ideation (Deneis any) Homicidal: Ideation (deneis any) Insight/Judgment poor insight, fair impulse control and judgment Labs Date/Time Source Procedure Growth Status 06/10/17 18:00 Wound Heel Gram Stain - Final Complete 06/10/17 18:00 Wound Culture - Final S. Aureus Mrsa Complete Vitals/IOs Vital Signs Date Time Temp Pulse Resp B/P (MAP) Pulse Ox O2 Delivery O2 Flow Rate FiO2 06/19/17 17:16 98.6 70 17 149/70 (96) 99 Intake and Output 06/19/17 06/19/17 06/20/17 08:00 16:00 00:00 Intake Total 240 ml 240 ml Balance 240 ml 240 ml Assessment & Plan Problem List: (1) DEMENTIA IN OTH DISEASES CLASSD ELSWHR W BEHAVIORAL DISTURB ICD Codes: F02.81 - DEMENTIA IN OTH DISEASES CLASSD ELSWHR W BEHAVIORAL DISTURB (2) OTHER ALZHEIMER'S DISEASE ICD Codes: G30.8 - OTHER ALZHEIMER'S DISEASE Assessment & Plan Patient with no behavioral dyscontrol, will continue treatment and likely discharged this week to appropriate living facility. Justification for Cont. Inpt. At risk for further decompensation if at lower level of care. Request HC Surrog/Guard Advoc?: Yes Isidoro Odonnell MD Jun 19, 2017 17:20
[2017-06-19] MEDS: LATANOPROST 0.005% OPHT SOLN 2.5 ML BTL EACH EYE SCH (21:00)
[2017-06-19] MEDS: hydrOXYzine HCL 50 MG TAB PO PRN (21:00)
[2017-06-20] MEDS: CLINDAMYCIN 150 MG CAP PO SCH ×4 (05:30→21:27)
[2017-06-20 06:00] VITALS: BP 113/58; PULSE 79; RESP 18; TEMP 97.6; O2SAT 97
--- NOTE | 2017-06-20 06:19 | RADRPT ---
EXAM DATE/TIME: 06/20/2017 06:02 [facility] COMPARISON: No previous studies available for comparison. INDICATIONS : Fall, laceration to left mid forearm. MEDICAL HISTORY : None. SURGICAL HISTORY : None. ENCOUNTER: Initial ACUITY: 1 day PAIN SCORE: 0/10 LOCATION: Left forearm FINDINGS: Two view examination of the left forearm demonstrates no evidence of fracture or dislocation. Bony m ineralization is normal. The soft tissue structures are intact. CONCLUSION: 1. No acute fracture. No radiopaque foreign body. 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 Perfecto Chauhan MD on June 20, 2017 at 6:17 Board Certified Radiologist. This report was verified electronically.
--- NOTE | 2017-06-20 06:20 | RADRPT ---
EXAM DATE/TIME: 06/20/2017 06:04 [facility] COMPARISON: No previous studies available for comparison. INDICATIONS : Fall, laceration to left lateral hand. MEDICAL HISTORY : None. SURGICAL HISTORY : None. ENCOUNTER: Initial ACUITY: 1 day PAIN SCORE: 0/10 LOCATION: Left hand FINDINGS: Two view examination of the left hand demonstrates no soft tissue swelling, dislocation, or fracture. The joint spaces are maintained. Bony mineralization is normal. CONCLUSION: 1. No acute findings. No radiopaque foreign body. Perfecto Chauhan MD on June 20, 2017 at 6:18 Board Certified Radiologist. This report was verified electronically.
[2017-06-20] MEDS: INSULIN ASPART SUPPLEMENTAL SCALE SQ SCH ×4 (06:51→21:27)
[2017-06-20] MEDS: BACITRACIN TOP OINT 15 GM TUBE TOPICAL SCH (09:00)
[2017-06-20] MEDS: PANTOPRAZOLE SOD 40 MG DELAYED RELEASE TAB PO SCH (09:14)
[2017-06-20] MEDS: metFORMIN HCL 500 MG TAB PO SCH ×2 (09:14→17:32)
[2017-06-20] MEDS: CLOPIDOGREL 75 MG TAB PO SCH (09:14)
[2017-06-20] MEDS: PRAVASTATIN SOD 40 MG TAB PO SCH (09:14)
[2017-06-20] MEDS: THIAMINE HCL 100 MG TAB PO SCH (09:14)
[2017-06-20] MEDS: TRIAMTERENE/HCTZ 37.5 MG/25 MG CAP PO SCH (09:14)
[2017-06-20] MEDS: MEMANTINE HCL 5 MG TAB PO SCH (09:14)
[2017-06-20] MEDS: FOLIC ACID 1 MG TAB PO SCH (09:14)
[2017-06-20] MEDS: LOSARTAN 50 MG TAB PO SCH (09:15)
[2017-06-20] MEDS: CHOLECALCIFEROL (VIT D3) 1000 UNIT TAB PO SCH (09:15)
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
--- NOTE | 2017-06-20 16:22 | HHI.PYPN ---
Subjective Remarks Patient seen for follow-up, chart reviewed. Discussion with nursing staff, patient early this morning fell while attempting to go to the restroom with staff alongside for assistance. Patient found lying on hospital bed, calm and cooperative. Patient states that he did not recall the details of his fall this morning. He denied any pain or discomfort anywhere aside from an abrasion on the left forearm. He continues to report good mood, oriented to person and place only. Review of Systems Except as stated in HPI: all other systems reviewed are Neg Objective Alert: Yes [place]: Person, Place Mood: Calm Affect: Appropriate Memory Intact: Comment (impaired) Hallucinations: Other (denies) Delusions: No Delusion Type: Other (denies) Suicidal: Ideation (Deneis any) Homicidal: Ideation (deneis any) Insight/Judgment poor insight, limited impulse control and judgment Labs Date/Time Source Procedure Growth Status 06/10/17 18:00 Wound Heel Gram Stain - Final Complete 06/10/17 18:00 Wound Culture - Final S. Aureus Mrsa Complete Vitals/IOs Vital Signs Date Time Temp Pulse Resp B/P (MAP) Pulse Ox O2 Delivery O2 Flow Rate FiO2 06/20/17 06:00 97.6 79 18 113/58 (76) 97 Intake and Output 06/20/17 06/20/17 06/21/17 08:00 16:00 00:00 Intake Total 240 ml 240 ml Balance 240 ml 240 ml Assessment & Plan Problem List: (1) DEMENTIA IN OTH DISEASES CLASSD ELSWHR W BEHAVIORAL DISTURB ICD Codes: F02.81 - DEMENTIA IN OTH DISEASES CLASSD ELSWHR W BEHAVIORAL DISTURB (2) OTHER ALZHEIMER'S DISEASE ICD Codes: G30.8 - OTHER ALZHEIMER'S DISEASE Assessment & Plan Patient continues to have no behavioral dyscontrol, adhereing to treatment, and cooperative with staff. Will continue current treatment. Xray of forearm and had were negative for fractures. NURSING HOME placement continues to be in progress. Justification for Cont. Inpt. At risk for further decompensation if at lower level of care. Request HC Surrog/Guard Advoc?: Yes Isidoro Odonnell MD Jun 20, 2017 16:21
[2017-06-20 18:12] VITALS: BP 135/67; PULSE 66; RESP 18; TEMP 97.6
[2017-06-20 20:38] VITALS: BP 150/72; PULSE 86; RESP 20; TEMP 98; O2SAT 96
[2017-06-20] MEDS: LATANOPROST 0.005% OPHT SOLN 2.5 ML BTL EACH EYE SCH (21:27)
[2017-06-21] VITALS (7 sets, daily range): BP systolic 104–132; BP diastolic 52–69; PULSE 73–98; RESP 16–18; TEMP 97.4–98.8; O2SAT 95–100
[2017-06-21] MEDS: INSULIN ASPART SUPPLEMENTAL SCALE SQ SCH ×4 (08:00→21:13)
[2017-06-21] MEDS: BACITRACIN TOP OINT 15 GM TUBE TOPICAL SCH (09:00)
[2017-06-21] MEDS: PRAVASTATIN SOD 40 MG TAB PO SCH (09:39)
[2017-06-21] MEDS: metFORMIN HCL 500 MG TAB PO SCH ×2 (09:40→18:16)
[2017-06-21] MEDS: MEMANTINE HCL 5 MG TAB PO SCH (09:40)
[2017-06-21] MEDS: THIAMINE HCL 100 MG TAB PO SCH (09:40)
[2017-06-21] MEDS: CLINDAMYCIN 150 MG CAP PO SCH ×4 (09:40→21:12)
[2017-06-21] MEDS: PANTOPRAZOLE SOD 40 MG DELAYED RELEASE TAB PO SCH (09:40)
[2017-06-21] MEDS: CHOLECALCIFEROL (VIT D3) 1000 UNIT TAB PO SCH (09:41)
[2017-06-21] MEDS: CLOPIDOGREL 75 MG TAB PO SCH (09:41)
[2017-06-21] MEDS: LOSARTAN 50 MG TAB PO SCH (09:41)
[2017-06-21] MEDS: TRIAMTERENE/HCTZ 37.5 MG/25 MG CAP PO SCH (09:41)
[2017-06-21] MEDS: FOLIC ACID 1 MG TAB PO SCH (09:41)
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
--- NOTE | 2017-06-21 14:33 | PD.TTN ---
Patient Problems 1. Discharge planning 2. Medication compliance 3. Knowledge deficit 4. Lack of coping skills Progress Toward Goals Provider Present: Dr. Zaira Odonnell Provider Input: pt is stable and compliant Psychiatric Counselors Present: Keshia Miller LCSW Psych Therapist Input: [facility] and needs to complete benefits application with Medicaid for LTC however is over budget but was told how to arrange for her investments to get approved, she is overwhelmed and is now being helped by son they will address benefits this week Keshia Miller LCSW Jun 21, 2017 14:33
--- NOTE | 2017-06-21 15:52 | HHI.PYPN ---
Subjective Remarks Patient seen for follow-up, chart reviewed. Patient found sitting in day room, calm and cooperative with interview. He states feeling "good", continues to be oriented only to person and place. He states having spoken to his recently but is unsure of the exact date or time. He denies any physical complaints, denies any mood or psychotic symptoms. Denies SI, HI, AVH or delusions. Review of Systems Except as stated in HPI: all other systems reviewed are Neg Objective Alert: Yes [place]: Person, Place Mood: Calm Affect: Appropriate Memory Intact: Comment (impaired) Hallucinations: Other (denies) Delusions: No Delusion Type: Other (denies) Suicidal: Ideation (Deneis any) Homicidal: Ideation (deneis any) Insight/Judgment poor insight, fair impulse control and judgment Labs Date/Time Source Procedure Growth Status 06/10/17 18:00 Wound Heel Gram Stain - Final Complete 06/10/17 18:00 Wound Culture - Final S. Aureus Mrsa Complete Vitals/IOs Vital Signs Date Time Temp Pulse Resp B/P (MAP) Pulse Ox O2 Delivery O2 Flow Rate FiO2 06/21/17 13:17 98.6 97 17 128/69 (88) 96 Intake and Output 06/21/17 06/21/17 06/22/17 08:00 16:00 00:00 Intake Total 240 ml 720 ml Balance 240 ml 720 ml Assessment & Plan Problem List: (1) DEMENTIA IN OTH DISEASES CLASSD ELSWHR W BEHAVIORAL DISTURB ICD Codes: F02.81 - DEMENTIA IN OTH DISEASES CLASSD ELSWHR W BEHAVIORAL DISTURB (2) OTHER ALZHEIMER'S DISEASE ICD Codes: G30.8 - OTHER ALZHEIMER'S DISEASE Assessment & Plan Continue current treatment, continue to monitor and assist with ambulation, fall precautions. Discharge planning in progress. Justification for Cont. Inpt. At risk for further decompensation if at lower level of care. Request HC Surrog/Guard Advoc?: Yes Isidoro Odonnell MD Jun 21, 2017 15:51
[2017-06-21] MEDS: LATANOPROST 0.005% OPHT SOLN 2.5 ML BTL EACH EYE SCH (21:13)
[2017-06-22] MEDS: CLINDAMYCIN 150 MG CAP PO SCH ×4 (02:36→20:39)
[2017-06-22 05:49] VITALS: BP 122/59; PULSE 73; RESP 17; TEMP 97.5
[2017-06-22] MEDS: INSULIN ASPART SUPPLEMENTAL SCALE SQ SCH ×2 (08:00→11:34)
[2017-06-22] MEDS: PRAVASTATIN SOD 40 MG TAB PO SCH (08:32)
[2017-06-22] MEDS: PANTOPRAZOLE SOD 40 MG DELAYED RELEASE TAB PO SCH (08:32)
[2017-06-22] MEDS: CHOLECALCIFEROL (VIT D3) 1000 UNIT TAB PO SCH (08:32)
[2017-06-22] MEDS: THIAMINE HCL 100 MG TAB PO SCH (08:32)
[2017-06-22] MEDS: MEMANTINE HCL 5 MG TAB PO SCH (08:32)
[2017-06-22] MEDS: FOLIC ACID 1 MG TAB PO SCH (08:32)
[2017-06-22] MEDS: TRIAMTERENE/HCTZ 37.5 MG/25 MG CAP PO SCH (08:33)
[2017-06-22] MEDS: CLOPIDOGREL 75 MG TAB PO SCH (08:33)
[2017-06-22] MEDS: metFORMIN HCL 500 MG TAB PO SCH ×2 (08:33→17:33)
[2017-06-22] MEDS: BACITRACIN TOP OINT 15 GM TUBE TOPICAL SCH (08:33)
[2017-06-22] MEDS: LOSARTAN 50 MG TAB PO SCH (08:33)
--- NOTE | 2017-06-22 16:15 | HHI.PYPN ---
Subjective Remarks Patient seen for follow-up, chart reviewed. Patient found lying on hospital bed calm and cooperative with interview. He states feeling "fine", with no physical complaints. He states that he last spoke with his yesterday "she' s ok". He is alert and oriented to person, place and year only. He states wanting to go home. Review of Systems Except as stated in HPI: all other systems reviewed are Neg Objective Alert: Yes [place]: Person, Place Mood: Calm Affect: Appropriate Memory Intact: Comment (impaired) Hallucinations: Other (denies) Delusions: No Delusion Type: Other (denies) Suicidal: Ideation (Deneis any) Homicidal: Ideation (deneis any) Insight/Judgment poor insight, fair impulse control and judgment Labs Date/Time Source Procedure Growth Status 06/10/17 18:00 Wound Heel Gram Stain - Final Complete 06/10/17 18:00 Wound Culture - Final S. Aureus Mrsa Complete Vitals/IOs Vital Signs Date Time Temp Pulse Resp B/P (MAP) Pulse Ox O2 Delivery O2 Flow Rate FiO2 06/22/17 05:49 97.5 73 17 122/59 (80) 06/21/17 23:30 99 Intake and Output 06/22/17 06/22/17 06/23/17 08:00 16:00 00:00 Intake Total 720 ml Balance 720 ml Assessment & Plan Problem List: (1) DEMENTIA IN OTH DISEASES CLASSD ELSWHR W BEHAVIORAL DISTURB ICD Codes: F02.81 - DEMENTIA IN OTH DISEASES CLASSD ELSWHR W BEHAVIORAL DISTURB (2) OTHER ALZHEIMER'S DISEASE ICD Codes: G30.8 - OTHER ALZHEIMER'S DISEASE Assessment & Plan Continue current treatment, fall precautions, continue to encourage maintaining hygiene and participation in groups and activities. Justification for Cont. Inpt. At risk for further decompensation if at lower level of care. Request HC Surrog/Guard Advoc?: Yes Isidoro Odonnell MD Jun 22, 2017 16:14
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
[2017-06-22 18:08] VITALS: BP 135/69; PULSE 78; RESP 17; TEMP 98; O2SAT 98
[2017-06-22] MEDS: LATANOPROST 0.005% OPHT SOLN 2.5 ML BTL EACH EYE SCH (20:39)
[2017-06-23] MEDS: CLINDAMYCIN 150 MG CAP PO SCH ×4 (02:11→21:36)
[2017-06-23 06:00] VITALS: BP 109/96; PULSE 76; RESP 18; TEMP 97.8; O2SAT 96
[2017-06-23] MEDS: TRIAMTERENE/HCTZ 37.5 MG/25 MG CAP PO SCH (08:27)
[2017-06-23] MEDS: metFORMIN HCL 500 MG TAB PO SCH ×2 (08:28→17:33)
[2017-06-23] MEDS: PANTOPRAZOLE SOD 40 MG DELAYED RELEASE TAB PO SCH (08:28)
[2017-06-23] MEDS: LOSARTAN 50 MG TAB PO SCH (08:28)
[2017-06-23] MEDS: THIAMINE HCL 100 MG TAB PO SCH (08:28)
[2017-06-23] MEDS: PRAVASTATIN SOD 40 MG TAB PO SCH (08:28)
[2017-06-23] MEDS: CHOLECALCIFEROL (VIT D3) 1000 UNIT TAB PO SCH (08:28)
[2017-06-23] MEDS: MEMANTINE HCL 5 MG TAB PO SCH (08:28)
[2017-06-23] MEDS: FOLIC ACID 1 MG TAB PO SCH (08:29)
[2017-06-23] MEDS: CLOPIDOGREL 75 MG TAB PO SCH (08:29)
[2017-06-23] MEDS: BACITRACIN TOP OINT 15 GM TUBE TOPICAL SCH (08:29)
[2017-06-23] MEDS: LATANOPROST 0.005% OPHT SOLN 2.5 ML BTL EACH EYE SCH (21:36)
--- NOTE | 2017-06-23 21:44 | HHI.PYPN ---
Subjective Remarks Patient is seen for follow up; chart reviewed. Patient found lying on hospital bed, calm and cooperative with interview. He states having spoken to his and his son is coming down to visit which he is happy about. He states that he would like to leave the hospital. He is oriented to person and place only. Denies any physical complaints. Review of Systems Except as stated in HPI: all other systems reviewed are Neg Objective Alert: Yes [place]: Person, Place Mood: Calm Affect: Appropriate Memory Intact: Comment (impaired) Hallucinations: Other (denies) Delusions: No Delusion Type: Other (denies) Suicidal: Ideation (Deneis any) Homicidal: Ideation (deneis any) Insight/Judgment Poor insight, fair impulse control and limited judgment Labs Date/Time Source Procedure Growth Status 06/10/17 18:00 Wound Heel Gram Stain - Final Complete 06/10/17 18:00 Wound Culture - Final S. Aureus Mrsa Complete Vitals/IOs Vital Signs Date Time Temp Pulse Resp B/P (MAP) Pulse Ox O2 Delivery O2 Flow Rate FiO2 06/23/17 06:00 97.8 76 18 109/96 (100) 96 Intake and Output 06/23/17 06/23/17 06/24/17 08:00 16:00 00:00 Intake Total 1680 ml 480 ml Balance 1680 ml 480 ml Assessment & Plan Problem List: (1) DEMENTIA IN OTH DISEASES CLASSD ELSWHR W BEHAVIORAL DISTURB ICD Codes: F02.81 - DEMENTIA IN OTH DISEASES CLASSD ELSWHR W BEHAVIORAL DISTURB (2) OTHER ALZHEIMER'S DISEASE ICD Codes: G30.8 - OTHER ALZHEIMER'S DISEASE Assessment & Plan Patient with no behavioral dyscontrol. Continue current treatment and encourage participation in groups and activities. Discharge planning in progress. Justification for Cont. Inpt. At risk for further decompensation if at lower level of care. Request HC Surrog/Guard Advoc?: Yes Isidoro Odonnell MD Jun 23, 2017 21:43
[2017-06-24] MEDS: CLINDAMYCIN 150 MG CAP PO SCH ×4 (03:00→20:48)
[2017-06-24 06:02] VITALS: BP 119/104; PULSE 100; RESP 18; TEMP 97.9; O2SAT 97
[2017-06-24] MEDS: metFORMIN HCL 500 MG TAB PO SCH ×2 (08:52→17:24)
[2017-06-24] MEDS: THIAMINE HCL 100 MG TAB PO SCH (08:52)
[2017-06-24] MEDS: PRAVASTATIN SOD 40 MG TAB PO SCH (08:52)
[2017-06-24] MEDS: CLOPIDOGREL 75 MG TAB PO SCH (08:52)
[2017-06-24] MEDS: LOSARTAN 50 MG TAB PO SCH (08:52)
[2017-06-24] MEDS: CHOLECALCIFEROL (VIT D3) 1000 UNIT TAB PO SCH (08:53)
[2017-06-24] MEDS: PANTOPRAZOLE SOD 40 MG DELAYED RELEASE TAB PO SCH (08:53)
[2017-06-24] MEDS: TRIAMTERENE/HCTZ 37.5 MG/25 MG CAP PO SCH (08:53)
[2017-06-24] MEDS: FOLIC ACID 1 MG TAB PO SCH (08:53)
[2017-06-24] MEDS: BACITRACIN TOP OINT 15 GM TUBE TOPICAL SCH (08:58)
[2017-06-24] MEDS: MEMANTINE HCL 5 MG TAB PO SCH (08:58)
--- NOTE | 2017-06-24 13:21 | HHI.PYPN ---
Subjective Remarks Patient was seen and case discussed with nursing. Patient is pleasant and cooperative with exam. Alert and oriented 2. Compliant with his medications. Thought process remains disorganized with poor insight into his admission. No outbursts Objective Alert: Yes [place]: Person, Place Mood: Calm Affect: Restricted Memory Intact: Comment (impaired) Hallucinations: Other (denies) Delusions: No Delusion Type: Other (denies) Suicidal: Ideation (Deneis any) Homicidal: Ideation (deneis any) Insight/Judgment Poor Labs Date/Time Source Procedure Growth Status 06/10/17 18:00 Wound Heel Gram Stain - Final Complete 06/10/17 18:00 Wound Culture - Final S. Aureus Mrsa Complete Vitals/IOs Vital Signs Date Time Temp Pulse Resp B/P (MAP) Pulse Ox O2 Delivery O2 Flow Rate FiO2 06/24/17 06:02 97.9 100 18 119/104 (109) 97 Assessment & Plan Problem List: (1) DEMENTIA IN OTH DISEASES CLASSD ELSWHR W BEHAVIORAL DISTURB ICD Codes: F02.81 - DEMENTIA IN OTH DISEASES CLASSD ELSWHR W BEHAVIORAL DISTURB (2) OTHER ALZHEIMER'S DISEASE ICD Codes: G30.8 - OTHER ALZHEIMER'S DISEASE Assessment & Plan Continue current treatment plan Justification for Cont. Inpt. Patient will decompensate in a less restrictive setting Request HC Surrog/Guard Advoc?: Yes Guillermo Rodriguez DO Jun 24, 2017 13:21
[2017-06-24] MEDS: LATANOPROST 0.005% OPHT SOLN 2.5 ML BTL EACH EYE SCH (20:48)
[2017-06-25 02:10] VITALS: BP 126/72; PULSE 98
--- NOTE | 2017-06-25 03:11 | RADRPT ---
EXAM DATE/TIME: 06/25/2017 02:49 [facility] COMPARISON: No previous studies available for comparison. INDICATIONS : Trauma, fall. Abrasion to top of head. RADIATION DOSE: 56.35 CTDIvol (mGy) MEDICAL HISTORY : Chronic obstructive pulmonary disease. Gastroesophageal reflux disease. Hypertension.Neuropathy. Pros mcdonnell cancer. Diabetes. SURGICAL HISTORY : Prostatectomy. Hernia repair. Cervical spine surgery. ENCOUNTER: Initial ACUITY: 1 day PAIN SCALE: 3/10 LOCATION: cranial TECHNIQUE: Multiple contiguous axial images were obtained of the head. Using automated exposure control and adj ustment of the mA and/or kV according to patient size, radiation dose was kept as low as reasonably a chievable to obtain optimal diagnostic quality images. DICOM format image data is available electro nically for review and comparison. FINDINGS: CEREBRUM: The ventricles are mildly prominent. No evidence of midline shift, mass lesion, hemorrhage or acute i nfarction. No extra-axial fluid collections are seen. POSTERIOR FOSSA: The cerebellum and brainstem are intact. The 4th ventricle is midline. The cerebellopontine angle i s unremarkable. EXTRACRANIAL: The visualized portion of the orbits is intact. SKULL: The calvaria is intact. No evidence of skull fracture. CONCLUSION: 1. No acute findings. Ventricular prominence similar to February 2017. Perfecto Chauhan MD on June 25, 2017 at 3:09 Board Certified Radiologist. This report was verified electronically.
[2017-06-25] MEDS: CLINDAMYCIN 150 MG CAP PO SCH ×4 (03:27→21:34)
[2017-06-25 03:43] VITALS: BP 110/60; PULSE 78; RESP 16; O2SAT 96
[2017-06-25 05:14] VITALS: BP 143/70; PULSE 70; RESP 18; TEMP 97.8
[2017-06-25] MEDS: THIAMINE HCL 100 MG TAB PO SCH (08:40)
[2017-06-25] MEDS: CLOPIDOGREL 75 MG TAB PO SCH (08:41)
[2017-06-25] MEDS: MEMANTINE HCL 5 MG TAB PO SCH (08:41)
[2017-06-25] MEDS: FOLIC ACID 1 MG TAB PO SCH (08:41)
[2017-06-25] MEDS: PRAVASTATIN SOD 40 MG TAB PO SCH (08:41)
[2017-06-25] MEDS: CHOLECALCIFEROL (VIT D3) 1000 UNIT TAB PO SCH (08:41)
[2017-06-25] MEDS: PANTOPRAZOLE SOD 40 MG DELAYED RELEASE TAB PO SCH (08:41)
[2017-06-25] MEDS: LOSARTAN 50 MG TAB PO SCH (08:41)
[2017-06-25] MEDS: metFORMIN HCL 500 MG TAB PO SCH ×2 (08:41→17:07)
[2017-06-25] MEDS: BACITRACIN TOP OINT 15 GM TUBE TOPICAL SCH (08:42)
[2017-06-25] MEDS: TRIAMTERENE/HCTZ 37.5 MG/25 MG CAP PO SCH (08:45)
--- NOTE | 2017-06-25 13:53 | HHI.PYPN ---
Subjective Remarks Patient was seen and case discussed with nursing. Per nursing, patient had a fall last night. CT head was ordered and is negative. There is no acute change in mental status during the interview, he is alert and oriented 3. Continues with poor insight is before. Patient says he just slipped when going to the bathroom, he was not dizzy or weak. Denies any pain Objective Alert: Yes [place]: Person, Place Mood: Calm Affect: Restricted Memory Intact: Comment (impaired) Hallucinations: Other (denies) Delusions: No Delusion Type: Other (denies) Suicidal: Ideation (Deneis any) Homicidal: Ideation (deneis any) Insight/Judgment Poor Labs Date/Time Source Procedure Growth Status 06/10/17 18:00 Wound Heel Gram Stain - Final Complete 06/10/17 18:00 Wound Culture - Final S. Aureus Mrsa Complete Vitals/IOs Vital Signs Date Time Temp Pulse Resp B/P (MAP) Pulse Ox O2 Delivery O2 Flow Rate FiO2 06/25/17 05:14 97.8 70 18 143/70 (94) 06/25/17 03:43 96 Intake and Output 06/25/17 06/25/17 06/26/17 08:00 16:00 00:00 Intake Total 240 ml Balance 240 ml Assessment & Plan Problem List: (1) DEMENTIA IN OTH DISEASES CLASSD ELSWHR W BEHAVIORAL DISTURB ICD Codes: F02.81 - DEMENTIA IN OTH DISEASES CLASSD ELSWHR W BEHAVIORAL DISTURB (2) OTHER ALZHEIMER'S DISEASE ICD Codes: G30.8 - OTHER ALZHEIMER'S DISEASE Assessment & Plan Lab work ordered as a precaution Justification for Cont. Inpt. Patient would decompensate in a less restrictive setting Request HC Surrog/Guard Advoc?: Yes Guillermo Rodriguez DO Jun 25, 2017 13:52
--- NOTE | 2017-06-25 14:35 | PD.POD ---
Subjective Podiatric Problems b/l plantar foot wounds. Pain score: 0 Past Med/Surg/Social History Social History Smoking Status: Former Smoker Objective Vital Signs Vital Signs Date Time Temp Pulse Resp B/P (MAP) Pulse Ox O2 Delivery O2 Flow Rate FiO2 06/25/17 05:14 97.8 70 18 143/70 (94) 06/25/17 03:43 78 16 110/60 (77) 96 06/25/17 02:10 98 126/72 (90) Coded Allergies: *MDRO Multi-Drug Resistant Organism (Verified Adverse Reaction, Unknown, ) 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 Exam-Podiatry Dermatological Exam Ulcers: Location/Measurements b/l feet with plantar ulcer wounds are mixed fibrogranualar, No mal odor and no serous or purulent drainage. NVS unchanged. Assessment & Plan Diagnosis: (1) Ulcers of both lower extremities ICD Codes: L97.919 - Non-pressure chronic ulcer of unspecified part of right lower leg with unspecified severity; L97.929 - Non-pressure chronic ulcer of unspecified part of left lower leg with unspecified severity A/P Added Santyl qod Added post op shoe Continue to offload. Dr Egan begins coverage 06/26/17 Lydia Alfaro DPM Jun 25, 2017 14:35
[2017-06-25 17:10] VITALS: BP 113/65; PULSE 81; RESP 18; TEMP 97.9; O2SAT 98
[2017-06-25 21:05] LABS: AUTOMATED NEUTROPHIL # 6.2 TH/MM3 (1.8-7.7); BASOPHIL # 0.1 TH/MM3 (0-0.2); BASOPHIL % 0.6 % (0.0-2.0); EOSINOPHIL # 0.2 TH/MM3 (0-0.4); EOSINOPHIL % 2.3 % (0.0-4.0); HEMATOCRIT 33.2 % (39.0-51.0); HEMO FLAGS DIFF FINAL; LYMPH % 12.2 % (9.0-44.0); LYMPHOCYTE # 1.1 TH/MM3 (1.0-4.8); MEAN CELL VOLUME 95.1 FL (80.0-100.0); MEAN CORPUSCULAR HEMOGLOBIN 33.1 PG (27.0-34.0); MEAN CORPUSCULAR HGB CONC 34.8 % (32.0-36.0); MONO % 13.8 % (0.0-8.0); NEUT % 71.1 % (16.0-70.0); PLATELET COUNT 201 TH/MM3 (150-450); RED BLOOD COUNT 3.49 MIL/MM3 (4.50-5.90); RED CELL DISTRIBUTION WIDTH 13.1 % (11.6-17.2); WHITE BLOOD COUNT 8.7 TH/MM3 (4.0-11.0)
[2017-06-25 21:21] LABS: CHLORIDE 98 MEQ/L (98-107); POTASSIUM 4.6 MEQ/L (3.5-5.1); SODIUM (NA) 132 MEQ/L (136-145)
[2017-06-25 21:22] LABS: ANION GAP 9 MEQ/L (5-15); AST (GOT) 19 U/L (15-37); BLOOD UREA NITROGEN 37 MG/DL (7-18); GLOMERULAR FILTRATION RATE 47 ML/MIN (>89)
[2017-06-25 21:27] LABS: ALKALINE PHOSPHATASE 108 U/L (45-117); ALT (GPT) 19 U/L (12-78); TOTAL BILIRUBIN ADULT 0.4 MG/DL (0.2-1.0)
[2017-06-25] MEDS: LATANOPROST 0.005% OPHT SOLN 2.5 ML BTL EACH EYE SCH (21:34)
[2017-06-26] MEDS: CLINDAMYCIN 150 MG CAP PO SCH ×4 (03:36→22:48)
[2017-06-26 05:24] VITALS: BP 96/57; PULSE 67; RESP 17; TEMP 98.1
[2017-06-26] MEDS: PANTOPRAZOLE SOD 40 MG DELAYED RELEASE TAB PO SCH (08:32)
[2017-06-26] MEDS: MEMANTINE HCL 5 MG TAB PO SCH (08:33)
[2017-06-26] MEDS: PRAVASTATIN SOD 40 MG TAB PO SCH (08:33)
[2017-06-26] MEDS: CHOLECALCIFEROL (VIT D3) 1000 UNIT TAB PO SCH (08:33)
[2017-06-26] MEDS: THIAMINE HCL 100 MG TAB PO SCH (08:33)
[2017-06-26] MEDS: metFORMIN HCL 500 MG TAB PO SCH ×2 (08:33→17:38)
[2017-06-26] MEDS: CLOPIDOGREL 75 MG TAB PO SCH (08:34)
[2017-06-26] MEDS: FOLIC ACID 1 MG TAB PO SCH (08:35)
[2017-06-26] MEDS: LOSARTAN 50 MG TAB PO SCH (09:00)
[2017-06-26] MEDS: COLLAGENASE OINT 30 GM TUBE TOPICAL SCH (09:00)
[2017-06-26] MEDS: TRIAMTERENE/HCTZ 37.5 MG/25 MG CAP PO SCH (09:00)
[2017-06-26] MEDS: BACITRACIN TOP OINT 15 GM TUBE TOPICAL SCH (09:00)
--- NOTE | 2017-06-26 15:04 | HHI.PYPN ---
Subjective Remarks Patient seen for follow-up, chart reviewed. Patient found lying in hospital bed , cooperative with interview. Patient states that he had an okay weekend. As any physical complaints, tolerated medications well. Patient reports that no one came to visit but has been a medication with his family. Patient advised that there is a possible facility which may accept him for placement. Review of Systems Except as stated in HPI: all other systems reviewed are Neg Objective Alert: Yes [place]: Person, Place Mood: Calm Affect: Restricted Memory Intact: Comment (impaired) Hallucinations: Other (denies) Delusions: No Delusion Type: Other (denies) Suicidal: Ideation (Deneis any) Homicidal: Ideation (deneis any) Insight/Judgment poor insight, fair impulse control and judgement Labs labs reviewed Test 06/25/17 20:28 White Blood Count 8.7 TH/MM3 Red Blood Count 3.49 MIL/MM3 Hemoglobin 11.5 GM/DL Hematocrit 33.2 % Mean Corpuscular Volume 95.1 FL Mean Corpuscular Hemoglobin 33.1 PG Mean Corpuscular Hemoglobin Concent 34.8 % Red Cell Distribution Width 13.1 % Platelet Count 201 TH/MM3 Mean Platelet Volume 8.2 FL Neutrophils (%) (Auto) 71.1 % Lymphocytes (%) (Auto) 12.2 % Monocytes (%) (Auto) 13.8 % Eosinophils (%) (Auto) 2.3 % Basophils (%) (Auto) 0.6 % Neutrophils # (Auto) 6.2 TH/MM3 Lymphocytes # (Auto) 1.1 TH/MM3 Monocytes # (Auto) 1.2 TH/MM3 Eosinophils # (Auto) 0.2 TH/MM3 Basophils # (Auto) 0.1 TH/MM3 CBC Comment DIFF FINAL Differential Comment Blood Urea Nitrogen 37 MG/DL Creatinine 1.44 MG/DL Random Glucose 179 MG/DL Total Protein 7.4 GM/DL Albumin 3.0 GM/DL Calcium Level 8.9 MG/DL Alkaline Phosphatase 108 U/L Aspartate Amino Transf (AST/SGOT) 19 U/L Alanine Aminotransferase (ALT/SGPT) 19 U/L Total Bilirubin 0.4 MG/DL Sodium Level 132 MEQ/L Potassium Level 4.6 MEQ/L Chloride Level 98 MEQ/L Carbon Dioxide Level 25.0 MEQ/L Anion Gap 9 MEQ/L Estimat Glomerular Filtration Rate 47 ML/MIN Date/Time Source Procedure Growth Status 06/10/17 18:00 Wound Heel Gram Stain - Final Complete 06/10/17 18:00 Wound Culture - Final S. Aureus Mrsa Complete Vitals/IOs Vital Signs Date Time Temp Pulse Resp B/P (MAP) Pulse Ox O2 Delivery O2 Flow Rate FiO2 06/26/17 05:24 98.1 67 17 96/57 (70) 06/25/17 17:10 98 Intake and Output 06/26/17 06/26/17 06/27/17 08:00 16:00 00:00 Intake Total 240 ml 360 ml Balance 240 ml 360 ml Assessment & Plan Problem List: (1) DEMENTIA IN OTH DISEASES CLASSD ELSWHR W BEHAVIORAL DISTURB ICD Codes: F02.81 - DEMENTIA IN OTH DISEASES CLASSD ELSWHR W BEHAVIORAL DISTURB (2) OTHER ALZHEIMER'S DISEASE ICD Codes: G30.8 - OTHER ALZHEIMER'S DISEASE Assessment & Plan Patient with no behavioral control since admission. Patient, cooperative with staff, participating in groups and activities. Patient labs today show hyponatremia along with increased creatinine, recommendations as per primary team. Discharge planning in progress. Justification for Cont. Inpt. At risk for further decompensation if at lower level of care Request HC Surrog/Guard Advoc?: Yes Isidoro Odonnell MD Jun 26, 2017 15:04
[2017-06-26 18:00] VITALS: BP 126/78; PULSE 81; RESP 17; TEMP 98.1; O2SAT 98
[2017-06-26] MEDS: LATANOPROST 0.005% OPHT SOLN 2.5 ML BTL EACH EYE SCH (22:48)
[2017-06-27] MEDS: CLINDAMYCIN 150 MG CAP PO SCH ×2 (03:28→08:54)
[2017-06-27 06:00] VITALS: BP 105/58; PULSE 69; RESP 18; TEMP 98.2; O2SAT 98
[2017-06-27] MEDS ORDERED: LOSA100T PO (08:29)
[2017-06-27] MEDS ORDERED: COLL30T TOPICAL (08:29)
[2017-06-27] MEDS ORDERED: BACI500O2 TOPICAL (08:29)
[2017-06-27] MEDS ORDERED: PANT40TA3 PO (08:29)
[2017-06-27] MEDS ORDERED: LATA.005%O EACH EYE (08:29)
[2017-06-27] MEDS ORDERED: VITA1000 PO (08:29)
[2017-06-27] MEDS ORDERED: CLIN150 PO (08:29)
[2017-06-27] MEDS ORDERED: TRIA37.53 PO (08:29)
[2017-06-27] MEDS ORDERED: METF1000 PO (08:29)
[2017-06-27] MEDS ORDERED: PRAV40TA PO (08:29)
[2017-06-27] MEDS ORDERED: FOLI1TAB6 PO (08:29)
[2017-06-27] MEDS ORDERED: NAME5TAB2 PO (08:29)
[2017-06-27] MEDS ORDERED: GNP100TA3 PO (08:29)
[2017-06-27] MEDS ORDERED: PLAV75TA29 PO (08:29)
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
[2017-06-27] MEDS: CLOPIDOGREL 75 MG TAB PO SCH (08:53)
[2017-06-27] MEDS: FOLIC ACID 1 MG TAB PO SCH (08:53)
[2017-06-27] MEDS: THIAMINE HCL 100 MG TAB PO SCH (08:53)
[2017-06-27] MEDS: PANTOPRAZOLE SOD 40 MG DELAYED RELEASE TAB PO SCH (08:53)
[2017-06-27] MEDS: MEMANTINE HCL 5 MG TAB PO SCH (08:53)
[2017-06-27] MEDS: TRIAMTERENE/HCTZ 37.5 MG/25 MG CAP PO SCH (08:53)
[2017-06-27] MEDS: metFORMIN HCL 500 MG TAB PO SCH (08:53)
[2017-06-27] MEDS: LOSARTAN 50 MG TAB PO SCH (08:54)
[2017-06-27] MEDS: CHOLECALCIFEROL (VIT D3) 1000 UNIT TAB PO SCH (08:54)
[2017-06-27] MEDS: COLLAGENASE OINT 30 GM TUBE TOPICAL SCH (08:54)
[2017-06-27] MEDS: PRAVASTATIN SOD 40 MG TAB PO SCH (08:54)
[2017-06-27] MEDS: BACITRACIN TOP OINT 15 GM TUBE TOPICAL SCH (08:54)
--- NOTE | 2017-07-17 12:34 | HHI.PR ---
Addendum to Inpatient Note Addendum Reason: Additional Documentation Additional Information On 06/17 the patient was seen at bedside for a follow up evaluation. Calluses and wound were debrided with a #15 scalpel. The left plantar foot was cleansed with alcohol and a sterile scalpel and forceps were used to extract a piece of glass measuring approximately 8mm x 3mm from a wound. The area was irrigated with sterile saline and a proper bandage was applied. Sutures were not required. The patient is neuropathic and did not require local anesthetic. The capillary fill time remained consistent during and after the procedure. He tolerated the procedure well, and nursing staff was provided with wound care instructions. Kaelyn Saez DPM Jul 17, 2017 12:34
== END 2017-06-27 13:00 | DRG 57 ==
LOC: NEPD 11:07 → NEDA 06-08 11:40 → H250 06-08 15:01
PROVIDERS: ADMIT Student in an Organized Health Care Education/Training Program; ATTEND Student in an Organized Health Care Education/Training Program
PROC: 0HCNXZZ Extirpation of Matter from Left Foot Skin, External Approach (ICD-10-PCS; principal; 2017-06-17)
PROC: 0HDNXZZ Extraction of Left Foot Skin, External Approach (ICD-10-PCS; 2017-06-17)
PROC: 0HDMXZZ Extraction of Right Foot Skin, External Approach (ICD-10-PCS; 2017-06-17)
DX: G30.9 Alzheimer's disease, unspecified (principal); F02.81 Dementia in other diseases classified elsewhere, unspecified severity, with behavioral disturbance; E11.42 Type 2 diabetes mellitus with diabetic polyneuropathy; N39.0 Urinary tract infection, site not specified; E87.1 Hypo-osmolality and hyponatremia; J44.9 Chronic obstructive pulmonary disease, unspecified; E78.5 Hyperlipidemia, unspecified; I10 Essential (primary) hypertension; K21.9 Gastro-esophageal reflux disease without esophagitis; I25.10 Atherosclerotic heart disease of native coronary artery without angina pectoris; E55.9 Vitamin D deficiency, unspecified; E11.621 Type 2 diabetes mellitus with foot ulcer; L97.529 Non-pressure chronic ulcer of other part of left foot with unspecified severity; L97.519 Non-pressure chronic ulcer of other part of right foot with unspecified severity; E11.649 Type 2 diabetes mellitus with hypoglycemia without coma; L08.9 Local infection of the skin and subcutaneous tissue, unspecified; B95.62 Methicillin resistant Staphylococcus aureus infection as the cause of diseases classified elsewhere; E11.65 Type 2 diabetes mellitus with hyperglycemia; L84 Corns and callosities; F10.11 Alcohol abuse, in remission; M62.81 Muscle weakness (generalized); Z85.46 Personal history of malignant neoplasm of prostate; Z91.83 Wandering in diseases classified elsewhere; Z87.891 Personal history of nicotine dependence; Z79.84 Long term (current) use of oral hypoglycemic drugs
CPT/HCPCS: 70450; 70553; 71010; 72141; 73090; 73120; 73630; 73720; 80048; 80053; 80061; 80307; 81001; 82306; 82607; 82948; 83036; 83921; 84425; 84439; 84443; 85025; 85652; 86038; 86403; 86592; 87070; 87147; 87186; 87205; 93005; 99285; A9579; J1815; L3260